=== PATIENT | male | born 1925 | race Caucasian/White ===

== ENCOUNTER → 2016-12-23 | Outpatient (CLI) | payer BC ==
[~2016-12-23] MED LIST: ASPI81TA28 PO; ATEN25TA PO; ATOR-26 PO; CHOL1000 PO; CLR10 PO; FENO145T26 PO; FINA5TAB PO; FURO-85 PO; GFNSR600 PO; LDXCR30 TOP; NICO21DI4 TD; PRD20 PO; RIVA1.5C6 PO; SAW450CA5 PO; SULF800T23 PO; TAMS0.4C38 PO; VNTHFA/IN INH
[2016-12-23 18:06] LABS: URINE APPEARANCE CLEAR (CLEAR); URINE BILIRUBIN NEG (NEG); URINE COLOR YELLOW; URINE EPITHELIAL CELL AUTO 0-5 /lpf (0-5); URINE NITRITE NEG (NEG); URINE SPECIFIC GRAVITY 1.021 (1.000-1.030); UROBILINOGEN NEG (NEG)
[2016-12-23 18:19] LABS: MANUAL MICROSCOPIC REQUIRED? NO; REVIEW REQ? NO
== END | disposition home or self-care (01) ==
LOC: C.LABPBG 11:36
PROVIDERS: ATTEND Family Medicine
DX: N39.0 Urinary tract infection, site not specified (principal)

== ENCOUNTER 2016-12-25 20:17 | Emergency (ER) | payer BC ==
[~2016-12-25] VITALS: Ht 180.3 cm; Wt 70.5 kg
[~2016-12-25 20:17] MED LIST changes: -ASPI81TA28 PO; -ATEN25TA PO; -ATOR-26 PO; -CHOL1000 PO; -CLR10 PO; -FENO145T26 PO; -FINA5TAB PO; -FURO-85 PO; -GFNSR600 PO; -LDXCR30 TOP; -NICO21DI4 TD; -PRD20 PO; -RIVA1.5C6 PO; -TAMS0.4C38 PO; -VNTHFA/IN INH
[2016-12-25 20:19] VITALS: TEMP 36.7
[2016-12-25] MEDS ORDERED: SODIUM CHLORIDE 0.9% 1000ML 1,000 ML IV SCH (20:27)
[2016-12-25 20:35] VITALS: Ht 180.3 cm; Wt 70.5 kg
[2016-12-25 20:37] VITALS: O2SAT 99
--- NOTE | 2016-12-25 21:03 | DIAGNOSTIC IMAGING REPORT ---
CT SCAN OF THE BRAIN WITHOUT IV CONTRAST CLINICAL HISTORY: Recent fall. Left upper extremity weakness. Clinical concern for stroke. COMPARISON STUDY: No priors. TECHNIQUE: Unenhanced axial CT scan of the brain is performed from the vertex to the skull base. CT DOSE: 712.55 mGy.cm FINDINGS: Brain parenchyma: There are age-related involutional changes noting mild subcortical and periventricular microangiopathic change. There is no hemorrhage, mass effect, or evidence of acute territorial ischemia by CT criteria. Irby-white matter is preserved. No extra-axial fluid collection is seen. Ventricles, sulci, cisterns: Prominent secondary to involutional change. Intracranial vasculature: There is atherosclerotic calcification of the cavernous carotid and vertebral arteries. Calvarium: Skeletal structures are osteopenic. No depressed calvarial fracture is seen. Sinuses and mastoids: There is a 3 cm retention cyst in the right maxillary antrum. Trace mucosal thickening is seen within the maxillary antra. The remaining paranasal sinuses are clear. The mastoid air cells are well pneumatized. Orbits: The bony orbits are grossly intact. IMPRESSION: There is no hemorrhage, mass effect, or evidence of acute territorial ischemia by CT criteria. Electronically signed by: Cricket Pemberton M.D. 12/25/2016 9:02 PM Dictated Date/Time: 12/25/2016 8:59 PM
[2016-12-25 21:04] LABS: INR 1.1 (0.9-1.1); PARTIAL THROMBOPLASTIN RATIO 1.3; PROTHROMBIN TIME (PATIENT) 12.3 SECONDS (9.0-12.0)
--- NOTE | 2016-12-25 21:06 | EMERGENCY ROOM VISIT NOTE ---
History Report prepared by [place]: Ra Cordova Under the Supervision of: Dr. Frank Brooks M.D. First contact with patient: 20:27 Chief Complaint: NEURO SYMPTOMS Stated Complaint: FELL 12/22/16,NO USE IN L HAND Nursing Triage Summary: Patient awoke from nap today at 15:30 and was unable to use his left hand. Patient feels as if the hand is numb. History of Present Illness The patient is a 89 year old male who presents to the Emergency Room with complaints neurologic symptoms that began 5 hours ago. At this time, the patient had just woken up from a nap. He then noticed he could not move his left hand. He denies any pain at this time, but he still cannot move his wrist. The patient denies any facial droop, weakness, or trouble speaking. He has a past medical history of dementia, but his family is here to confirm all of this. He had a recent fall that resulted in two broken ribs. He states he was weeding his walkway, when his shoe got caught. He does not remember hitting his head at all during this fall. He also was checked for a UTI two days ago, but they have not received his results yet. He also has a past medical history of an open heart bypass surgery, a myocardial infarction, and a stroke. He is a current everyday smoker. He also has a pacemaker in place. Source of History: patient, family Onset: 5 hours ago Position: hand (left) Symptom Intensity: moderate Quality: numbness Timing: constant Associated Symptoms: No weakness Note: He denies any facial droop or speech problems. Review of Systems See HPI for pertinent positives & negatives. A total of 10 systems reviewed and were otherwise negative. Past Medical & Surgical Medical Problems: (1) Heart disease (2) Kidney disease Surgical Problems: (1) History of cholecystectomy Family History FH: heart disease Social History Smoking Status: Current Every Day Smoker Smokeless Tobacco Use: No Drug Use: none Marital Status: Housing Status: lives with family Occupation Status: retired Current/Historical Medications Scheduled Aspirin (Aspirin Ec), 81 MG PO DAILY Atenolol (Tenormin), 12.5 MG PO DAILY Atorvastatin (Lipitor), 80 MG PO DAILY Cholecalciferol (Vitamin D3), 1,000 INTER.UNIT PO DAILY Finasteride (Proscar), 5 MG PO DAILY Loratadine (Claritin), 10 MG PO DAILY Rivastigmine Tartrate (Exelon), 1.5 MG PO BID Tamsulosin Hcl (Flomax), 0.4 MG PO DAILY Allergies Coded Allergies: No Known Allergies (Unverified , 12/25/16) Physical Exam Vital Signs Date Time Temp Pulse Resp B/P (MAP) Pulse Ox O2 Delivery O2 Flow Rate FiO2 12/25/16 23:00 70 18 171/77 98 12/25/16 21:29 70 18 163/89 97 Room Air 12/25/16 20:37 99 Room Air 12/25/16 20:36 70 12/25/16 20:19 36.7 71 20 147/74 100 Room Air Physical Exam GENERAL: Patient is a healthy-appearing well-nourished male HEAD: Normocephalic atraumatic EYES: Ocular movements intact pupils equal and react to light OROPHARYNX mucous membranes are moist no exudates present no erythema or edema present NECK: Supple no nuchal rigidity CHEST: Good equal expansion LUNGS: Clear and equal to auscultation CARDIAC: Normal S1 and S2 ABDOMEN: Soft nontender no guarding BACK: No CVA tenderness EXTREMITIES: No pain upon palpation normal muscle strength in all groups no clubbing cyanosis or edema NEURO: Patient is following commands and answering questions appropriately. Alert and oriented x3 Cranial Nerves 2-12 grossly intact. Wrist drop on the left. Good strength to left elbow and shoulder. Medical Decision & Procedures ER Provider Diagnostic Interpretation: Radiology results as stated below per my review and radiologist interpretation: CT SCAN OF THE BRAIN WITHOUT IV CONTRAST CLINICAL HISTORY: Recent fall. Left upper extremity weakness. Clinical concern for stroke. COMPARISON STUDY: No priors. TECHNIQUE: Unenhanced axial CT scan of the brain is performed from the vertex to the skull base. CT DOSE: 712.55 mGy.cm FINDINGS: Brain parenchyma: There are age-related involutional changes noting mild subcortical and periventricular microangiopathic change. There is no hemorrhage, mass effect, or evidence of acute territorial ischemia by CT criteria. Irby-white matter is preserved. No extra-axial fluid collection is seen. Ventricles, sulci, cisterns: Prominent secondary to involutional change. Intracranial vasculature: There is atherosclerotic calcification of the cavernous carotid and vertebral arteries. Calvarium: Skeletal structures are osteopenic. No depressed calvarial fracture is seen. Sinuses and mastoids: There is a 3 cm retention cyst in the right maxillary antrum. Trace mucosal thickening is seen within the maxillary antra. The remaining paranasal sinuses are clear. The mastoid air cells are well pneumatized. Orbits: The bony orbits are grossly intact. IMPRESSION: There is no hemorrhage, mass effect, or evidence of acute territorial ischemia by CT criteria. Electronically signed by: Cricket Pemberton M.D. 12/25/2016 9:02 PM Dictated Date/Time: 12/25/2016 8:59 PM SINGLE VIEW CHEST CLINICAL HISTORY: Fall. Stroke like symptoms. FINDINGS: An AP, portable, upright chest radiograph is obtained. No prior studies are available for comparison at the time of dictation. The examination is degraded by portable technique and patient rotation. A 2-lead cardiac pacemaker is in place. Leads project over the right atrial appendage and the right ventricle. The patient is status post midline sternotomy. The heart is enlarged and there is atherosclerotic calcification of the thoracic aorta. The pulmonary vascular structures noncongested. Airspace opacities are identified at the left lung base. A small left pleural effusion is suspected. The right lung is grossly clear. Nonspecific interstitial thickening is observed. No pneumothorax is seen. The skeletal structures are osteopenic. The bony thorax is grossly intact. IMPRESSION: 1. Cardiomegaly and cardiac pacemaker. There is no radiographic evidence of congestive failure. 2. Airspace opacities are identified the left lung base. This could represent atelectasis, pneumonia, and/or aspiration pneumonitis. Clinical correlation will be required. 3. Suspect a small left pleural effusion. Electronically signed by: Cricket Pemberton M.D. 12/25/2016 9:20 PM Dictated Date/Time: 12/25/2016 9:[address] ANGIO WRIST:X-RAY Laboratory Results 12/25/16 20:40 Red Blood Count 4.20, Mean Corpuscular Volume 91.2, Mean Corpuscular Hemoglobin 28.3, Mean Corpuscular Hemoglobin Concent 31.1, Mean Platelet Volume 12.3, Neutrophils (%) (Auto) 62.9, Lymphocytes (%) (Auto) 25.3, Monocytes (%) (Auto) 10.4, Eosinophils (%) (Auto) 1.1, Basophils (%) (Auto) 0.3, Neutrophils # (Auto ) 2.31, Lymphocytes # (Auto) 0.93, Monocytes # (Auto) 0.38, Eosinophils # (Auto ) 0.04, Basophils # (Auto) 0.01 12/25/16 20:40 Test 12/25/16 20:36 12/25/16 20:40 12/25/16 21:23 Bedside Prothrombin Time INR 1.3 (0.9-1.1) Bedside Glucose 99 mg/dl (70-99) White Blood Count 3.67 K/uL (4.8-10.8) Red Blood Count 4.20 M/uL (4.7-6.1) Hemoglobin 11.9 g/dL (14.0-18.0) Hematocrit 38.3 % (42-52) Mean Corpuscular Volume 91.2 fL (80-100) Mean Corpuscular Hemoglobin 28.3 pg (25-34) Mean Corpuscular Hemoglobin Concent 31.1 g/dl (32-36) Platelet Count 62 K/uL (130-400) Mean Platelet Volume 12.3 fL (7.4-10.4) Neutrophils (%) (Auto) 62.9 % Lymphocytes (%) (Auto) 25.3 % Monocytes (%) (Auto) 10.4 % Eosinophils (%) (Auto) 1.1 % Basophils (%) (Auto) 0.3 % Neutrophils # (Auto) 2.31 K/uL (1.4-6.5) Lymphocytes # (Auto) 0.93 K/uL (1.2-3.4) Monocytes # (Auto) 0.38 K/uL (0.11-0.59) Eosinophils # (Auto) 0.04 K/uL (0-0.5) Basophils # (Auto) 0.01 K/uL (0-0.2) RDW Standard Deviation 47.3 fL (36.4-46.3) RDW Coefficient of Variation 14.1 % (11.5-14.5) Immature Granulocyte % (Auto) 0.0 % Immature Granulocyte # (Auto) 0.00 K/uL (0.00-0.02) Platelet Estimate DECREASED Ovalocytes 1+ Echinocytes 1+ Prothrombin Time 12.3 SECONDS (9.0-12.0) Prothromb Time International Ratio 1.1 (0.9-1.1) Activated Partial Thromboplast Time 34.2 SECONDS (21.0-31.0) Partial Thromboplastin Ratio 1.3 Anion Gap 7.0 mmol/L (3-11) Est Creatinine Clear Calc Drug Dose 38.4 ml/min Estimated GFR () 56.1 Estimated GFR (Non- 48.4 BUN/Creatinine Ratio 19.5 (10-20) Calcium Level 8.9 mg/dl (8.5-10.1) Total Creatine Kinase 70 U/L (39-308) Creatine Kinase MB 1.5 ng/ml (0.5-3.6) Creatine Kinase MB Ratio 2.1 (0-3.0) Troponin I < 0.015 ng/ml (0-0.045) Chemistry Specimen Hemolysis Urine Color DK YELLOW Urine Appearance CLEAR (CLEAR) Urine pH 5.0 (4.5-7.5) Urine Specific [place] 1.024 (1.000-1.030) Urine Protein TRACE (NEG) Urine Glucose (UA) NEG (NEG) Urine Ketones NEG (NEG) Urine Occult Blood 2+ (NEG) Urine Nitrite NEG (NEG) Urine Bilirubin NEG (NEG) Urine Urobilinogen NEG (NEG) Urine Leukocyte Esterase NEG (NEG) Urine WBC (Auto) 1-5 /hpf (0-5) Urine RBC (Auto) 10-30 /hpf (0-4) Urine Hyaline Casts (Auto) 1-5 /lpf (0-5) Urine Epithelial Cells (Auto) 5-10 /lpf (0-5) Urine Bacteria (Auto) NEG (NEG) Labs reviewed by ED physician. Medications Administered Medications (Trade) Dose Ordered Sig/Roberto Route Start Time Stop Time Status Last Admin Dose Admin Sodium Chloride 1,000 ml @ 50 mls/hr Q20H IV 12/25/16 20:27 12/25/16 23:54 DC 12/25/16 20:27 50 MLS/HR ECG Indication: other (Numbness) Rate (beats per minute): 70 Rhythm: other (Paced) Findings: no acute ischemic change, no ectopy ED Course 2026: Past medical records reviewed. The patient was evaluated in room B12B. A complete history and physical examination was performed. Ordered Sodium Chloride 1000 ml @ 50 mls/hr IV. Medical Decision Differential diagnosis: Etiologies such as metabolic, infection, hypo/hyperglycemia, electrolyte abnormalities, cardiac sources, intracerebral event, toxicologic, neurologic, as well as others were entertained. Medication Reconciliation: I attest that I have personally reviewed the patient' s current medication list Blood Pressure Screening: Patient was found to have an elevated blood pressure and was referred to their primary care doctor for recheck and further treatment. This is an 89-year-old male who presents emergency department complaining of left wrist drop. Upon arrival to the emergency department the patient has good flexion and extension of his forearm his upper arm.. He denies any numbness or tingling to the hand. He was sent for CAT scan of the head however this does not show any acute process. A CTA was then performed because the patient cannot get an MRI. This didn't also did not show any acute process. 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 I stressed the need for follow-up with orthopedics. Patient and family were in agreement with the treatment plan. Impression Primary Impression: Wrist drop, left Scribe Attestation The scribe's documentation has been prepared under my direction and personally reviewed by me in its entirety. I confirm that the note above accurately reflects all work, treatment, procedures, and medical decision making performed by me. Departure Information Dispostion Home / Self-Care Referrals Johnny Bunn D.O. (PCP) Forms HOME CARE DOCUMENTATION FORM, IMPORTANT VISIT INFORMATION, WORK / SCHOOL INSTRUCTIONS Patient Instructions My [facility] Stroke History Time Last Known Well 1430, today Stroke t-PA Criteria Reviewed Does NOT meet criteria for t-PA Reason t-PA Not Given Treatment not indicated
[2016-12-25 21:14] LABS: BLOOD UREA NITROGEN 25 mg/dl (7-18); BUN/CREATININE RATIO 19.5 (10-20); CARBON DIOXIDE 25 mmol/L (21-32); CHLORIDE 114 mmol/L (98-107); GLUCOSE 98 mg/dl (70-99); POTASSIUM 4.2 mmol/L (3.5-5.1); SODIUM 146 mmol/L (136-145)
[2016-12-25 21:18] LABS: BASO % 0.3 %; BASO ABS # 0.01 K/uL (0-0.2); COMPLETE YES; ECHINOCYTES 1+; EOS % 1.1 %; HEMATOCRIT 38.3 % (42-52); LYMPH % 25.3 %; LYMPH ABS # 0.93 K/uL (1.2-3.4); MEAN CELL VOLUME 91.2 fL (80-100); MEAN CORPUSCULAR HEMOGLOBIN 28.3 pg (25-34); MEAN CORPUSCULAR HGB CONC 31.1 g/dl (32-36); MEAN PLATELET VOLUME 12.3 fL (7.4-10.4); MONO % 10.4 %; NEUT % 62.9 %; OVALOCYTES 1+; PLATELET COUNT 62 K/uL (130-400); PLT ESTIMATE DECREASED; WHITE BLOOD COUNT 3.67 K/uL (4.8-10.8)
[2016-12-25 21:19] LABS: CKMB/CK RATIO 2.1 (0-3.0)
--- NOTE | 2016-12-25 21:21 | DIAGNOSTIC IMAGING REPORT ---
SINGLE VIEW CHEST CLINICAL HISTORY: Fall. Stroke like symptoms. FINDINGS: An AP, portable, upright chest radiograph is obtained. No prior studies are available for comparison at the time of dictation. The examination is degraded by portable technique and patient rotation. A 2-lead cardiac pacemaker is in place. Leads project over the right atrial appendage and the right ventricle. The patient is status post midline sternotomy. The heart is enlarged and there is atherosclerotic calcification of the thoracic aorta. The pulmonary vascular structures noncongested. Airspace opacities are identified at the left lung base. A small left pleural effusion is suspected. The right lung is grossly clear. Nonspecific interstitial thickening is observed. No pneumothorax is seen. The skeletal structures are osteopenic. The bony thorax is grossly intact. IMPRESSION: 1. Cardiomegaly and cardiac pacemaker. There is no radiographic evidence of congestive failure. 2. Airspace opacities are identified the left lung base. This could represent atelectasis, pneumonia, and/or aspiration pneumonitis. Clinical correlation will be required. 3. Suspect a small left pleural effusion. Electronically signed by: Cricket Pemberton M.D. 12/25/2016 9:20 PM Dictated Date/Time: 12/25/2016 9:18 PM
[2016-12-25 21:23] LABS: CALCIUM 8.9 mg/dl (8.5-10.1)
[2016-12-25] MEDS ORDERED: OPTIRAY 320 IV PRN (21:30)
[2016-12-25 21:51] LABS: URINE APPEARANCE CLEAR (CLEAR); URINE BILIRUBIN NEG (NEG); URINE COLOR DK YELLOW; URINE NITRITE NEG (NEG); URINE SPECIFIC GRAVITY 1.024 (1.000-1.030); UROBILINOGEN NEG (NEG); ZZUR CULT IF INDIC CLEAN CATCH NO
[2016-12-25 21:52] LABS: MANUAL MICROSCOPIC REQUIRED? NO; REVIEW REQ? NO
--- NOTE | 2016-12-25 22:26 | DIAGNOSTIC IMAGING REPORT ---
CT ANGIOGRAM OF THE BRAIN; CT ANGIOGRAM OF THE NECK CLINICAL HISTORY: Fall. Left hand weakness. COMPARISON STUDY: Unenhanced CT of the brain dated 12/25/2016. TECHNIQUE: Following the IV administration of 119 of Optiray 320, CT angiogram of the head and neck was performed from the aortic arch to the vertex. Images are reviewed in the axial, sagittal, and coronal planes. 3-D MIPS images are created and assessed. IV contrast was administered without complication. All measurements were calculated based on NASCET criteria. CT DOSE: 609.85 mGy.cm FINDINGS: Brain parenchyma: There are age-related involutional changes and mild subcortical and periventricular microangiopathic disease. There is no evidence of hemorrhage, mass effect, or acute territorial ischemia by CT criteria. There is no evidence of enhancing mass lesion on the angiographic phase images. The ventricles, sulci, and cisterns are prominent secondary to involutional change. Irby-white matter differentiation is preserved. No extra-axial fluid collection is identified. Thoracic aorta: There is atherosclerotic calcification of the imaged portions of the thoracic aorta. The visualized thoracic aorta is normal in caliber and the arch demonstrates standard 3-vessel anatomy. Subclavian arteries: Widely patent bilaterally. Right carotid arterial system: The right common carotid artery is widely patent. There is advanced atherosclerotic calcification and plaque seen the carotid bulb. There is approximate 75% stenosis at the origin of the right internal carotid artery seen on axial image #452. The remainder of the right internal carotid artery as well as the external carotid artery are widely patent. Left carotid arterial system: The left common carotid artery is widely patent, as are the left internal and carotid arteries. Advanced atherosclerotic calcification is noted in the left carotid bulb. Vertebral arteries: The vertebral arteries are widely patent and codominant. Intracranial vasculature: The internal carotid arteries are widely patent at the skull base. There is after carotid calcification and tortuosity of the cavernous carotid arteries which are patent. The anterior and middle cerebral arteries are widely patent. The vertebrobasilar system and posterior cerebral arteries are widely patent. The vertebral arteries are codominant. No aneurysm, high-grade stenosis, or focal vessel cut off is identified. Jugular veins: Patent bilaterally. Dural sinuses: Patent. Upper chest: Apical scarring and emphysema are suggested. Partially visualized upper lobe lung parenchyma otherwise appears clear. Midline sternotomy wires are noted. A cardiac pacemaker is noted in the left upper chest. Soft tissues: Evaluation of the oropharynx is significantly degraded by streak artifact from dental amalgam. The visualized pharyngeal soft tissues are normal in appearance noting angiographic phase technique. The oropharyngeal airway appears widely patent. The salivary and thyroid glands are normal in appearance. No cervical lymphadenopathy is seen. The epiglottis is normal. Skeletal structures: The skeletal structures are osteopenic. The calvarium appears intact. There is moderate multilevel cervical spondylosis. No lytic or blastic lesions are identified. Sinuses and mastoids: There is a large retention cyst in the right maxillary antrum. Trace mucosal thickening is seen in the right maxillary antrum. The remaining Paranasal sinuses are clear. The mastoid air cells are well pneumatized. IMPRESSION: 1. There is no evidence of hemorrhage, mass effect, or acute territorial ischemia by CT criteria. 2. Unremarkable CT angiogram of the brain. 3. There is approximately 75% stenosis at the origin of the right internal carotid artery. The remainder of the right internal carotid arterial system is widely patent. 4. The left carotid arterial system and the vertebral arteries are widely patent. 5. Suspect emphysema. Electronically signed by: Cricket Pemberton M.D. 12/25/2016 10:25 PM Dictated Date/Time: 12/25/2016 10:11 PM
--- NOTE | 2016-12-25 22:49 | DIAGNOSTIC IMAGING REPORT ---
LEFT WRIST 4 VIEWS CLINICAL HISTORY: Fall several days ago. Left wrist injury. FINDINGS: 4 views of left wrist are obtained. No prior studies are available for comparison at the time of dictation. The skeletal structures are osteopenic. There is cortical irregularity involving the distal ulnar metaphysis. This could represent bony overgrowth/degenerative change versus fracture. The distal radius appears intact and no additional findings are concerning for acute fracture. There is mild narrowing at the radiocarpal articulation. Moderate to advanced arthritic change is seen at the first carpometacarpal articulation. Milder degenerative change is seen throughout the remainder of the wrist. Arthritic change is also seen in the metacarpophalangeal and partially imaged interphalangeal joints. No erosive disease is identified. Mild soft tissue swelling is suggested around the wrist. IMPRESSION: 1. There is cortical irregularity identified involving the distal ulnar metaphysis. This could represent bony overgrowth/degenerative change versus a subtle fracture. Correlate for point tenderness at this site. 2. No additional findings are concerning for acute fracture. 3. Osteopenia and arthritic change as above. 4. Mild soft tissue swelling is noted. Electronically signed by: Cricket Pemberton M.D. 12/25/2016 10:48 PM Dictated Date/Time: 12/25/2016 10:44 PM
[2016-12-25 23:00] VITALS: BP 171/77; PULSE 70; O2SAT 98
[2017-03-11] MEDS ORDERED: ATEN25TA PO (15:51)
[2017-03-11] MEDS ORDERED: CHOL1000 PO (15:51)
[2017-03-11] MEDS ORDERED: FINA5TAB PO (15:51)
[2017-03-11] MEDS ORDERED: TAMS0.4C38 PO (15:51)
[2017-03-11] MEDS ORDERED: CLR10 PO (15:51)
[2017-03-11] MEDS ORDERED: RIVA1.5C6 PO (15:51)
[2017-03-11] MEDS ORDERED: ASPI81TA28 PO (15:51)
[2017-03-11] MEDS ORDERED: ATOR-26 PO (15:51)
== END 2016-12-25 23:00 | disposition home or self-care (01) ==
LOC: C.EDB 20:18
DX: M21.332 Wrist drop, left wrist (principal); I25.2 Old myocardial infarction; I51.9 Heart disease, unspecified; N18.9 Chronic kidney disease, unspecified; F17.200 Nicotine dependence, unspecified, uncomplicated; Z95.1 Presence of aortocoronary bypass graft; Z95.0 Presence of cardiac pacemaker; Z79.82 Long term (current) use of aspirin; Z79.899 Other long term (current) drug therapy

== ENCOUNTER 2017-03-11 18:47 | Emergency (ER) | payer BC ==
[~2017-03-11] VITALS: Ht 180.3 cm; Wt 73.1 kg
[~2017-03-11 18:47] MED LIST changes: +ASPI81TA28 PO; +ATEN25TA PO; +ATOR-26 PO; +CHOL1000 PO; +CLR10 PO; +FINA5TAB PO; +RIVA1.5C6 PO; -SAW450CA5 PO; -SULF800T23 PO; +TAMS0.4C38 PO
[2017-03-11 18:50] VITALS: TEMP 36.9; Ht 180.3 cm; Wt 73.1 kg
[2017-03-11 19:14] LABS: MEAN CORPUSCULAR HGB CONC 31.3 g/dl (32-36)
[2017-03-11] MEDS ORDERED: LDXCR30 TOP (19:33)
[2017-03-11] MEDS ORDERED: FURO-85 PO (19:33)
[2017-03-11 19:34] LABS: INR 1.2 (0.9-1.1); PARTIAL THROMBOPLASTIN RATIO 1.4; PROTHROMBIN TIME (PATIENT) 12.7 SECONDS (9.0-12.0)
--- NOTE | 2017-03-11 19:39 | DIAGNOSTIC IMAGING REPORT ---
HEAD WITHOUT CONTRAST (CT) CT DOSE: 788.63 mGycm HISTORY: Mental status change eval for bleed TECHNIQUE: Multiaxial CT images of the head were performed without the use of intravenous contrast. A dose lowering technique was utilized adhering to the principles of ALARA. Comparison: 12/25/2016 Findings: Opacified right maxillary sinus. Mild mucosal thickening of the ethmoids. Mastoid air cells are clear. Mild cerebellar as well as cerebral atrophy. Jugular system is midline. No acute intracranial hemorrhage. Impression: Chronic intracranial change. No acute process. Chronic sinus change The above report was generated using voice recognition software. It may contain grammatical, syntax or spelling errors. Electronically signed by: Magno Sosa M.D. 03/11/2017 7:29 PM Dictated Date/Time: 03/11/2017 7:28 PM
--- NOTE | 2017-03-11 19:39 | DIAGNOSTIC IMAGING REPORT ---
CERVICAL SPINE W/O CT DOSE: 439.01 mGycm HISTORY: Trauma eval for fx TECHNIQUE: Multiaxial CT images of the cervical spine were performed and reformatted in the sagittal and coronal plane without the use of contrast. A dose lowering technique was utilized adhering to the principles of ALARA. COMPARISON: None. FINDINGS: No fractures. No subluxation. Prevertebral soft tissues and the C1-C2 interval are intact. No pneumothorax. IMPRESSION: No fractures within the cervical spine. Degenerative change. Osteopenia. The above report was generated using voice recognition software. It may contain grammatical, syntax or spelling errors. Electronically signed by: Magno Sosa M.D. 03/11/2017 7:38 PM Dictated Date/Time: 03/11/2017 7:34 PM
--- NOTE | 2017-03-11 19:41 | DIAGNOSTIC IMAGING REPORT ---
FACIAL BONES-MXILLOFAC WITHOUT CT DOSE: 580.05 mGycm HISTORY: Trauma eval for fx TECHNIQUE: Multiaxial CT images of the maxillofacial region were performed and reformatted in the coronal plane without the use of contrast. A dose lowering technique was utilized adhering to the principles of ALARA. COMPARISON: None. FINDINGS: The visualized cervical spine, skull base, pterygoid plates, nasal bones, lamina papyracea, orbital floors, mandible, and zygomatic arches are intact. No fractures. The orbits are unremarkable. Degenerative change throughout. Chronic opacification right maxillary sinus IMPRESSION: No fractures within the maxillofacial region. The above report was generated using voice recognition software. It may contain grammatical, syntax or spelling errors. Electronically signed by: Magno Sosa M.D. 03/11/2017 7:40 PM Dictated Date/Time: 03/11/2017 7:38 PM
[2017-03-11 19:43] LABS: ACANTHOCYTES 1+; BASO % 0.2 %; BASO ABS # 0.01 K/uL (0-0.2); COMPLETE YES; ECHINOCYTES 1+; HEMATOCRIT 36.7 % (42-52); IG% 0.4 %; LYMPH % 13.3 %; LYMPH ABS # 0.68 K/uL (1.2-3.4); MEAN CELL VOLUME 91.3 fL (80-100); MEAN CORPUSCULAR HEMOGLOBIN 29.4 pg (25-34); MONO % 11.6 %; NEUT % 74.5 %; OVALOCYTES 1+; PLATELET COUNT 53 K/uL (130-400); PLT ESTIMATE DECREASED; RED BLOOD COUNT 4.02 M/uL (4.7-6.1)
--- NOTE | 2017-03-11 19:44 | DIAGNOSTIC IMAGING REPORT ---
THORACIC SPINE WITHOUT CT DOSE: 837.43 mGycm HISTORY: Trauma eval for fx TECHNIQUE: Multiaxial CT images of the thoracic spine were performed and reformatted in the sagittal and coronal plane without the use of contrast. A dose lowering technique was utilized adhering to the principles of ALARA. COMPARISON: None. FINDINGS: No fractures. No subluxation. Paraspinal soft tissues are unremarkable. Considerable degenerative change throughout. Bilateral renal cysts. IMPRESSION: No fractures within the thoracic spine. Considerable degenerative change. The above report was generated using voice recognition software. It may contain grammatical, syntax or spelling errors. Electronically signed by: Magno Sosa M.D. 03/11/2017 7:43 PM Dictated Date/Time: 03/11/2017 7:40 PM
[2017-03-11 19:48] LABS: ALKALINE PHOSPHATASE 174 U/L (45-117); ALT/SGPT 32 U/L (12-78); AST/SGOT 31 U/L (15-37); BLOOD UREA NITROGEN 27 mg/dl (7-18); BUN/CREATININE RATIO 19.4 (10-20); CARBON DIOXIDE 24 mmol/L (21-32); CHLORIDE 112 mmol/L (98-107); GLUCOSE 113 mg/dl (70-99); POTASSIUM 4.3 mmol/L (3.5-5.1); SODIUM 143 mmol/L (136-145)
--- NOTE | 2017-03-11 20:06 | DIAGNOSTIC IMAGING REPORT ---
PELVIS/UNILATERAL HIP 2-3VIEWS CLINICAL HISTORY: eval for fx LT HIP trauma COMPARISON: None. DISCUSSION: Moderate degenerative change of the hips bilaterally. No evidence for fracture or dislocation. Sclerotic foci of the mid right as well as mid left sacrum as well as inferior right pubic ring. Osteoblastic metastatic change is not excluded. This may also represent bone islands. There is no evidence for soft tissue swelling. IMPRESSION: No acute bony abnormality. Degenerative change. Sclerotic foci within the sacrum and inferior right pubic ring. These potentially related to benign bone islands, although blastic metastatic deposits are not excluded. The above report was generated using voice recognition software. It may contain grammatical, syntax or spelling errors. Electronically signed by: Magno Sosa M.D. 03/11/2017 8:04 PM Dictated Date/Time: 03/11/2017 8:02 PM
--- NOTE | 2017-03-11 20:09 | DIAGNOSTIC IMAGING REPORT ---
LUMBAR SPINE WITHOUT CT DOSE: 674.95 mGycm HISTORY: Trauma eval for fx TECHNIQUE: Multiaxial CT images of the lumbar spine were performed and reformatted in the sagittal and coronal plane without the use of contrast. A dose lowering technique was utilized adhering to the principles of ALARA. COMPARISON: None. FINDINGS: No fractures. No subluxation. Paraspinal soft tissues are unremarkable. Considerable degenerative change throughout. Blastic foci posterior aspect mid right sacrum, medial aspect left iliac wing, and a clinically anterior margin of the right sacroiliac joint. Considerable degenerative change posterior elements primarily of the left posterior arch at L5-S1. IMPRESSION: 1. No acute abnormality of the lumbar spine. 2. Degenerative change throughout. 3. Sclerotic foci involving the sacral wings as well as medial left iliac wing raising the possibility of blastic metastatic change versus a benign bone marrow islands The above report was generated using voice recognition software. It may contain grammatical, syntax or spelling errors. Electronically signed by: Magno Sosa M.D. 03/11/2017 8:08 PM Dictated Date/Time: 03/11/2017 8:06 PM
[2017-03-11 21:04] VITALS: BP 124/63; PULSE 76; O2SAT 97
--- NOTE | 2017-03-12 00:58 | EMERGENCY ROOM VISIT NOTE ---
History Report prepared by [place]: Usha Whitney Under the Supervision of: Dr. Javed Oliveira M.D. First contact with patient: 18:49 Chief Complaint: FALL Stated Complaint: FALL/ FACIAL INJURY/POSS. INTERNAL TRAUMA History of Present Illness The patient is an 89 year old male who presents to the Emergency Room with complaints of a fall around 3 hours ago. He presents to the ED by EMS. The patient was bending down to get his cane when he lost his balance and fell. He hit his face on the table and fell to the floor. 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 His family found him on the ground around 45 minutes after he fell. He was laying on the ground for 2 hours total before EMS arrived. He complained of hip pain and lower back pain. He was given fentanyl in route. He currently rates his discomfort as a 1/10 in severity. He denies any headache or pain elsewhere. He has a history of dementia, but his family states that his dementia is not severe and he is still able to accurately recall events that have passed. Source of History: patient, family, EMS Onset: 3 hours ago Position: other (global) Symptom Intensity: 1/10 Quality: other (fall) Timing: other (episodic) Associated Symptoms: + back pain, No headache Note: Pt reports hip pain. Review of Systems See HPI for pertinent positives & negatives. A total of 10 systems reviewed and were otherwise negative. Past Medical & Surgical Medical Problems: (1) Heart disease (2) Kidney disease Surgical Problems: (1) History of cholecystectomy Family History FH: heart disease Social History Smoking Status: Current Every Day Smoker Drug Use: none Marital Status: Housing Status: lives with family Occupation Status: retired Current/Historical Medications Scheduled Aspirin (Aspirin Ec), 81 MG PO DAILY Atenolol (Tenormin), 12.5 MG PO DAILY Atorvastatin (Lipitor), 80 MG PO QPM Cholecalciferol (Vitamin D3), 1,000 INTER.UNIT PO DAILY Finasteride (Proscar), 5 MG PO DAILY Fluocinonide (Lidex 0.05% Cream), 1 APPLN TOP UD Furosemide (Lasix), 10 MG PO DAILY Loratadine (Claritin), 10 MG PO DAILY Rivastigmine Tartrate (Exelon), 1.5 MG PO BID Tamsulosin Hcl (Flomax), 0.4 MG PO DAILY Allergies Coded Allergies: No Known Allergies (Unverified , 12/25/16) Physical Exam Vital Signs Date Time Temp Pulse Resp B/P (MAP) Pulse Ox O2 Delivery O2 Flow Rate FiO2 03/11/17 21:04 76 16 124/63 97 03/11/17 20:06 60 16 174/71 96 Room Air 03/11/17 18:51 60 03/11/17 18:50 36.9 60 18 179/82 99 Room Air Physical Exam Constitutional: Vital signs reviewed. Head: Abrasion to the forehead, 3 skin tears to the nose, very superficial 2.5 cm lac to the left upper lip. Eyes: Pupils are equal round reactive to light. Conjunctiva are noninjected. ENT: Pharynx is clear without erythema or exudate. Mucous membranes are moist. No midline tenderness to the cervical spine. Respiratory: Clear to auscultation bilaterally. Breath sounds are equal bilaterally. Cardiovascular: Regular rate and rhythm. No rubs or gallops. GI: Soft, nondistended and nontender. Bowel sounds are present. Musculoskeletal: Tenderness to the left hip without shortening, normal distal pulses, tenderness to the lower lumbar spine, no midline tenderness to the thoracic spine, skin tear to the left wrist and right hand. Integumentary: No cyanosis. Neurological: The patient is awake and alert. No focal deficits. Psychiatric: Normal affect. Medical Decision & Procedures ER Provider Diagnostic Interpretation: X-ray results as stated below per interpretation by me and the radiologist. Radiology results as stated below per my review and the radiologist's interpretation: PELVIS/UNILATERAL HIP 2-3VIEWS CLINICAL HISTORY: eval for fx LT HIP trauma COMPARISON: None. DISCUSSION: Moderate degenerative change of the hips bilaterally. No evidence for fracture or dislocation. Sclerotic foci of the mid right as well as mid left sacrum as well as inferior right pubic ring. Osteoblastic metastatic change is not excluded. This may also represent bone islands. There is no evidence for soft tissue swelling. IMPRESSION: No acute bony abnormality. Degenerative change. Sclerotic foci within the sacrum and inferior right pubic ring. These potentially related to benign bone islands, although blastic metastatic deposits are not excluded. The above report was generated using voice recognition software. It may contain grammatical, syntax or spelling errors. Electronically signed by: Magno Sosa M.D. 03/11/2017 8:04 PM Dictated Date/Time: 03/11/2017 8:02 PM CERVICAL SPINE W/O CT DOSE: 439.01 mGycm HISTORY: Trauma eval for fx TECHNIQUE: Multiaxial CT images of the cervical spine were performed and reformatted in the sagittal and coronal plane without the use of contrast. A dose lowering technique was utilized adhering to the principles of ALARA. COMPARISON: None. FINDINGS: No fractures. No subluxation. Prevertebral soft tissues and the C1-C2 interval are intact. No pneumothorax. IMPRESSION: No fractures within the cervical spine. Degenerative change. Osteopenia. The above report was generated using voice recognition software. It may contain grammatical, syntax or spelling errors. Electronically signed by: Magno Sosa M.D. 03/11/2017 7:38 PM Dictated Date/Time: 03/11/2017 7:34 PM HEAD WITHOUT CONTRAST (CT) CT DOSE: 788.63 mGycm HISTORY: Mental status change eval for bleed TECHNIQUE: Multiaxial CT images of the head were performed without the use of intravenous contrast. A dose lowering technique was utilized adhering to the principles of ALARA. Comparison: 12/25/2016 Findings: Opacified right maxillary sinus. Mild mucosal thickening of the ethmoids. Mastoid air cells are clear. Mild cerebellar as well as cerebral atrophy. Jugular system is midline. No acute intracranial hemorrhage. Impression: Chronic intracranial change. No acute process. Chronic sinus change The above report was generated using voice recognition software. It may contain grammatical, syntax or spelling errors. Electronically signed by: Magno Sosa M.D. 03/11/2017 7:29 PM Dictated Date/Time: 03/11/2017 7:28 PM LUMBAR SPINE WITHOUT CT DOSE: 674.95 mGycm HISTORY: Trauma eval for fx TECHNIQUE: Multiaxial CT images of the lumbar spine were performed and reformatted in the sagittal and coronal plane without the use of contrast. A dose lowering technique was utilized adhering to the principles of ALARA. COMPARISON: None. FINDINGS: No fractures. No subluxation. Paraspinal soft tissues are unremarkable. Considerable degenerative change throughout. Blastic foci posterior aspect mid right sacrum, medial aspect left iliac wing, and a clinically anterior margin of the right sacroiliac joint. Considerable degenerative change posterior elements primarily of the left posterior arch at L5-S1. IMPRESSION: 1. No acute abnormality of the lumbar spine. 2. Degenerative change throughout. 3. Sclerotic foci involving the sacral wings as well as medial left iliac wing raising the possibility of blastic metastatic change versus a benign bone marrow islands The above report was generated using voice recognition software. It may contain grammatical, syntax or spelling errors. Electronically signed by: Magno Sosa M.D. 03/11/2017 8:08 PM Dictated Date/Time: 03/11/2017 8:06 PM FACIAL BONES-MXILLOFAC WITHOUT CT DOSE: 580.05 mGycm HISTORY: Trauma eval for fx TECHNIQUE: Multiaxial CT images of the maxillofacial region were performed and reformatted in the coronal plane without the use of contrast. A dose lowering technique was utilized adhering to the principles of ALARA. COMPARISON: None. FINDINGS: The visualized cervical spine, skull base, pterygoid plates, nasal bones, lamina papyracea, orbital floors, mandible, and zygomatic arches are intact. No fractures. The orbits are unremarkable. Degenerative change throughout. Chronic opacification right maxillary sinus IMPRESSION: No fractures within the maxillofacial region. The above report was generated using voice recognition software. It may contain grammatical, syntax or spelling errors. Electronically signed by: Magno Sosa M.D. 03/11/2017 7:40 PM Dictated Date/Time: 03/11/2017 7:38 PM THORACIC SPINE WITHOUT CT DOSE: 837.43 mGycm HISTORY: Trauma eval for fx TECHNIQUE: Multiaxial CT images of the thoracic spine were performed and reformatted in the sagittal and coronal plane without the use of contrast. A dose lowering technique was utilized adhering to the principles of ALARA. COMPARISON: None. FINDINGS: No fractures. No subluxation. Paraspinal soft tissues are unremarkable. Considerable degenerative change throughout. Bilateral renal cysts. IMPRESSION: No fractures within the thoracic spine. Considerable degenerative change. The above report was generated using voice recognition software. It may contain grammatical, syntax or spelling errors. Electronically signed by: Magno Sosa M.D. 03/11/2017 7:43 PM Dictated Date/Time: 03/11/2017 7:40 PM Laboratory Results 03/11/17 19:01 Red Blood Count 4.02, Mean Corpuscular Volume 91.3, Mean Corpuscular Hemoglobin 29.4, Mean Corpuscular Hemoglobin Concent 31.3, Neutrophils (%) (Auto) 74.5, Lymphocytes (%) (Auto) 13.3, Monocytes (%) (Auto) 11.6, Eosinophils (%) (Auto) 0.0, Basophils (%) (Auto) 0.2, Neutrophils # (Auto) 3.80, Lymphocytes # (Auto) 0.68, Monocytes # (Auto) 0.59, Eosinophils # (Auto) 0.00, Basophils # (Auto) 0.01 03/11/17 19:01 Test 03/11/17 19:01 White Blood Count 5.10 K/uL (4.8-10.8) Red Blood Count 4.02 M/uL (4.7-6.1) Hemoglobin 11.8 g/dL (14.0-18.0) Hematocrit 36.7 % (42-52) Mean Corpuscular Volume 91.3 fL (80-100) Mean Corpuscular Hemoglobin 29.4 pg (25-34) Mean Corpuscular Hemoglobin Concent 31.3 g/dl (32-36) Platelet Count 53 K/uL (130-400) Neutrophils (%) (Auto) 74.5 % Lymphocytes (%) (Auto) 13.3 % Monocytes (%) (Auto) 11.6 % Eosinophils (%) (Auto) 0.0 % Basophils (%) (Auto) 0.2 % Neutrophils # (Auto) 3.80 K/uL (1.4-6.5) Lymphocytes # (Auto) 0.68 K/uL (1.2-3.4) Monocytes # (Auto) 0.59 K/uL (0.11-0.59) Eosinophils # (Auto) 0.00 K/uL (0-0.5) Basophils # (Auto) 0.01 K/uL (0-0.2) RDW Standard Deviation 46.3 fL (36.4-46.3) RDW Coefficient of Variation 13.8 % (11.5-14.5) Immature Granulocyte % (Auto) 0.4 % Immature Granulocyte # (Auto) 0.02 K/uL (0.00-0.02) Platelet Estimate DECREASED Ovalocytes 1+ Echinocytes 1+ Acanthocytes 1+ Prothrombin Time 12.7 SECONDS (9.0-12.0) Prothromb Time International Ratio 1.2 (0.9-1.1) Activated Partial Thromboplast Time 36.6 SECONDS (21.0-31.0) Partial Thromboplastin Ratio 1.4 Anion Gap 7.0 mmol/L (3-11) Est Creatinine Clear Calc Drug Dose 37.0 ml/min Estimated GFR () 51.3 Estimated GFR (Non- 44.2 BUN/Creatinine Ratio 19.4 (10-20) Calcium Level 9.0 mg/dl (8.5-10.1) Total Bilirubin 1.0 mg/dl (0.2-1) Direct Bilirubin mg/dl (0-0.2) Aspartate Amino Transf (AST/SGOT) 31 U/L (15-37) Alanine Aminotransferase (ALT/SGPT) 32 U/L (12-78) Alkaline Phosphatase 174 U/L (45-117) Total Creatine Kinase 220 U/L (39-308) Troponin I 0.025 ng/ml (0-0.045) Total Protein 6.9 gm/dl (6.4-8.2) Albumin 3.4 gm/dl (3.4-5.0) Chemistry Specimen Hemolysis Laboratory results as reviewed by me. ECG Indication: other (fall) Rate (beats per minute): 60 Rhythm: other (ventricular paced) Findings: no ectopy, other (QRS 178) ED Course 1846: The patient was evaluated in room A1. A complete history and physical exam was performed. 2001: The patient has been moved to room A9B. I reevaluated the patient. I removed the cervical collar. I discussed the test results with him and his family. We are still waiting on X-ray and CT results. 2014: I reevaluated the patient. He is doing well. His daughter states that his tetanus is up to date. I discussed the test results with him and his family including the incidental findings on the CT. The patient will have an ambulatory trial and be discharged home if he is able to ambulate. 2041: I reevaluated the patient. He was able to ambulate although slower than usual. He and his family would like to take him home. I discussed sharan's findings with them. They verbalized agreement of the treatment plan. He was discharged home. Medical Decision This is an 89-year-old male who presents with injuries after mechanical fall. Differential diagnosis includes contusion, concussion, skull fracture, facial fracture, intracranial hemorrhage, vertebral compression fracture. I did perform a limited focused review of portions of the patient's old chart on the electronic medical record. The patient has had no recent pertinent visits to this hospital. I did evaluate the patient as noted above. I did obtain history from the patient as well as his family who are at the bedside. His fall was mechanical in nature. He did not have any dizziness or weakness. He complains of back pain and left hip pain. IV access was established. The patient was placed on a continuous gambling monitor. I did order and personally review the patient's 12-lead EKG and x-rays as described above. He has no evidence of fracture. Id id order and review the patient's blood work as noted in the electronic medical record. I did order a CT of the head, facial bones and spine. I did review the images myself as well as the radiology report as described above. There is no evidence of acute fracture. No intracranial hemorrhage. I did discuss the test results with the patient and his family. He does feel well enough to go home. He did ambulate with some unsteadiness but not out of the ordinary for him. His family did wish to take him home. He was discharged with head injury precautions. His facial wounds and extremity wounds were cleaned and dressed. He does not require any suture her laceration repair. He was discharged in good condition. Head Trauma GCS Score: 15 Medication Reconcilliation Current Medication List: was personally reviewed by me Blood Pressure Screening Patient's blood pressure: Elevated blood pressure Blood pressure disposition: Referred to PCP Impression Primary Impression: Acute head injury Additional Impressions: Facial contusion Fall Injury of left hip Low back pain Multiple skin tears Scribe Attestation The scribe's documentation has been prepared under my direct and personally reviewed by me in its entirety. I confirm that the note above accurately reflects all work, treatment, procedures, and medical decision making performed by me. Departure Information Dispostion Home / Self-Care Referrals Johnny Bunn D.O. (PCP) Forms HOME CARE DOCUMENTATION FORM, IMPORTANT VISIT INFORMATION Patient Instructions ED Head Injury Closed, ED Low Back Pain Injury, [facility] Additional Instructions You have been examined and treated today on an emergency basis only. This is not a substitute for, or an effort to provide, complete comprehensive medical care. It is impossible to recognize and treat all injuries or illnesses in a single emergency department visit. It is therefore important that you follow up closely with your physician. Call as soon as possible for an appointment. Return for worsening symptoms or if you develop fever, vomiting, abdominal pain , loss of control of your bowel or bladder, numbness or weakness to your arms or legs, numbness to your private area, difficulty urinating, or any other concerning symptoms. Problem Qualifiers Primary Impression: Acute head injury Encounter type: initial encounter Qualified Codes: S09.90XA - Unspecified injury of head, initial encounter Additional Impressions: Facial contusion Encounter type: initial encounter Qualified Codes: S00.83XA - Contusion of other part of head, initial encounter Fall Encounter type: initial encounter Qualified Codes: W19.XXXA - Unspecified fall, initial encounter Injury of left hip Encounter type: initial encounter Qualified Codes: S79.912A - Unspecified injury of left hip, initial encounter Low back pain Chronicity: acute Back pain laterality: midline Sciatica presence: without sciatica Qualified Codes: M54.5 - Low back pain
== END 2017-03-11 21:04 | disposition home or self-care (01) ==
LOC: EDBD 18:47 → C.ED 18:49 → C.EDA 21:04
DX: S09.90XA Unspecified injury of head, initial encounter (principal); S00.83XA Contusion of other part of head, initial encounter; S79.912A Unspecified injury of left hip, initial encounter; M54.5 Low back pain; T14.8 Other injury of unspecified body region; R94.31 Abnormal electrocardiogram [ECG] [EKG]; F03.90 Unspecified dementia, unspecified severity, without behavioral disturbance, psychotic disturbance, mood disturbance, and anxiety; Z79.82 Long term (current) use of aspirin; Z79.899 Other long term (current) drug therapy; Z86.79 Personal history of other diseases of the circulatory system; Z87.448 Personal history of other diseases of urinary system; Z82.49 Family history of ischemic heart disease and other diseases of the circulatory system; F17.200 Nicotine dependence, unspecified, uncomplicated; W19.XXXA Unspecified fall, initial encounter

== ENCOUNTER → 2017-03-24 | Outpatient (CLI) | payer BC ==
[~2017-03-24] MED LIST changes: +FURO-85 PO; +LDXCR30 TOP
[2017-03-24 17:06] LABS: URINE APPEARANCE CLEAR (CLEAR); URINE BILIRUBIN NEG (NEG); URINE COLOR YELLOW; URINE NITRITE NEG (NEG); URINE PH 5.5 (4.5-7.5); URINE SPECIFIC GRAVITY 1.017 (1.000-1.030); UROBILINOGEN NEG (NEG)
[2017-03-24 17:09] LABS: MANUAL MICROSCOPIC REQUIRED? NO; REVIEW REQ? NO
== END | disposition home or self-care (01) ==
LOC: C.LABSPEC 16:21
PROVIDERS: ATTEND Urology
DX: N18.3 Chronic kidney disease, stage 3 (moderate) (principal); N28.9 Disorder of kidney and ureter, unspecified

== ENCOUNTER 2017-05-16 19:47 | Inpatient (IN) | payer BC, OTHER ==
[~2017-05-16] VITALS: Ht 177.8 cm; Wt 71.4 kg
--- NOTE | 2017-05-16 20:39 | EMERGENCY ROOM VISIT NOTE ---
History Report prepared by [place]: Liza Rolle Under the Supervision of: Dr. Raghav Jack D.O. First contact with patient: 20:28 Chief Complaint: WEAKNESS Stated Complaint: WEAK,COUGH,NO URINATION History of Present Illness The patient is an 89 year old male who presents to the Emergency Room with complaints of worsening weakness. He is accompanied by family. His daughter reports around 1700 this evening, his son-in-law found him "slumped on a chair and out of it". He had brought the patient his dinner, but he was unable to use a fork, which is unusual for the patient. They called his home caregiver, who found him to be febrile and dehydrated. His family gave him some cold compresses , which provided some relief. His family also admits the patient has a history of kidney infections, and follows with Dr. Lagunas, [facility] [place] [facility]. The patient has been experiencing poor urine output and a cough recently, but notes he is a former smoker. He denies any recent headache, abdominal pain or leg pain or swelling. He denies any recent choking or aspirating food or fluid into his lungs. The patients PCP is going to be Dr. Ogden with [facility] as he is in the midst of changing providers. Source of History: patient, family Onset: INDUSTRIAL INSULATOR Position: other (global) Timing: worsening Associated Symptoms: + urinary symptoms, No headache, No abdominal pain Review of Systems See HPI for pertinent positives & negatives. A total of 10 systems reviewed and were otherwise negative. Past Medical & Surgical Medical Problems: (1) Heart disease (2) Kidney disease Surgical Problems: (1) History of cholecystectomy Family History FH: heart disease Social History Smoking Status: Current Every Day Smoker Drug Use: none Marital Status: Housing Status: lives with family Occupation Status: retired Current/Historical Medications Scheduled Aspirin (Aspirin Ec), 81 MG PO DAILY Atenolol (Tenormin), 12.5 MG PO DAILY Atorvastatin (Lipitor), 80 MG PO QPM Cholecalciferol (Vitamin D3), 1,000 INTER.UNIT PO DAILY Fenofibrate (Tricor ), 145 MG PO DAILY Finasteride (Proscar), 5 MG PO DAILY Fluocinonide (Lidex 0.05% Cream), 1 APPLN TOP UD Furosemide (Lasix), 10 MG PO DAILY Loratadine (Claritin), 10 MG PO DAILY Rivastigmine Tartrate (Exelon), 1.5 MG PO BID Tamsulosin Hcl (Flomax), 0.4 MG PO DAILY Allergies Coded Allergies: No Known Allergies (Unverified , 12/25/16) Physical Exam Vital Signs Date Time Temp Pulse Resp B/P (MAP) Pulse Ox O2 Delivery O2 Flow Rate FiO2 05/16/17 21:56 60 16 140/75 96 Room Air 05/16/17 20:48 60 05/16/17 20:36 98 Room Air 05/16/17 20:19 37.3 60 16 111/65 94 Room Air Physical Exam GENERAL: Patient is listless but responds to verbal commands, he does not appear to be in pain or uncomfortable EYES: The conjunctivae are clear. The pupils are constricted and minimally reactive to light bilaterally EARS, NOSE, MOUTH AND THROAT: The nose is without any evidence of any deformity. Mucous membranes are moist tongue is midline NECK: The neck is nontender and supple. JVD bilaterally. RESPIRATORY: Lung sounds are diminished throughout with scattered rales, no tachypnea noted CARDIOVASCULAR: Regular rate and rhythm, systolic murmur noted GASTROINTESTINAL: The abdomen is moderately distended and diffusely tender, no guarding or rigidity appreciated BACK: No midline tenderness or or step-off noted range of motion in flexion extension as well as rotation no signs of muscle spasm noted MUSCULOSKELETAL/EXTREMITIES: There is no evidence of gross deformity full range of motion is noted in the hips and shoulders SKIN: Pedal edema bilaterally. There is no obvious evidence of any rash. There are no petechiae, pallor or cyanosis noted. NEUROLOGIC: Patient is oriented to person, place and situation. Strength is diminished but symmetric. Medical Decision & Procedures ER Provider Diagnostic Interpretation: Radiology results as stated below per my review and radiologist interpretation: CHEST ONE VIEW PORTABLE CLINICAL HISTORY: Sepsis. Cough. COMPARISON STUDY: Chest radiograph December 25, 2016. FINDINGS: A dual lead left subclavian pacemaker is noted. There are median sternotomy wires. Moderate cardiomegaly is again noted. No pneumothorax or pleural effusion is present. No consolidation is identified to suggest pneumonia. There is pulmonary vascular congestion with suspected mild pulmonary edema. IMPRESSION: 1. Pulmonary vascular congestion with suspected mild pulmonary edema. 2. Stable cardiomegaly. Electronically signed by: Jasbir Latif M.D. 05/16/2017 9:[address] OF THE HEAD WITHOUT CONTRAST CLINICAL HISTORY: Confusion. COMPARISON STUDY: Head CT March 11, 2017. CT DOSE: 962.12 mGy.cm TECHNIQUE: Helical axial images of the head were obtained without IV contrast. Automated exposure control was utilized for the study. A dose lowering technique was utilized adhering to the principles of ALARA. FINDINGS: No acute intracranial hemorrhage, midline shift or mass effect is present. Ventricular system is stable. Basilar cisterns are patent. There are no extra-axial collections. Moderate atrophy is noted with prominence of the extra-axial CSF spaces. There are no findings to suggest acute dural sinus thrombosis or acute territorial infarct. There is no calvarial fracture. A right maxillary sinus mucous retention cyst is noted with mild mucosal thickening. There is mild thickening of the ethmoid sinuses. IMPRESSION: No acute intracranial findings. Electronically signed by: Jasbir Latif M.D. 05/16/2017 9:[address] OF THE ABDOMEN AND PELVIS WITHOUT CONTRAST CLINICAL HISTORY: Decreased urine output. Weakness. Confusion. COMPARISON STUDY: CT of the abdomen and pelvis October 28, 2014. TECHNIQUE: Axial images of the abdomen and pelvis were obtained without IV contrast. Images were reviewed in the axial, sagittal, and coronal planes. A dose lowering technique was utilized adhering to the principles of ALARA. FINDINGS: Cardiomegaly is noted. Pacer leads are partially imaged. Mild multifocal airspace opacities are noted within visualized portions of the lungs. There is a trace right pleural effusion. Evaluation of the abdomen and pelvis is suboptimal on this unenhanced exam. Unenhanced images of liver, spleen, adrenal glands and pancreas are unremarkable. There are numerous water attenuation bilateral renal lesions. These are suboptimally assessed on this unenhanced exam but measure water attenuation and favor cysts. A right renal lesion is partially calcified. There is mild left hydroureteronephrosis. No ureteral calculi are identified. There is no biliary or pancreatic ductal dilatation. A 4.8 x 4.5 cm infrarenal abdominal aortic aneurysm has moderately increased in size since CT of October 28, 2014 when it measured 4.3 x 3.8 cm. There is no evidence for rupture. Note is made of mass-like asymmetry within the right posterior aspect of the prostate gland. This may reflect a prostate carcinoma with extracapsular extension. There has been interval development of multiple sclerotic skeletal lesions since CT of October 28, 2014, including a 2.6 cm right ischial tuberosity lesion, a 2.6 cm right sacral lesion and a 2.8 cm posterior left iliac bone lesion. There is no evidence for a bowel obstruction. No pneumatosis, free air or portal venous gas is present. There is no lymphadenopathy within the abdomen. 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 IMPRESSION: 1. Mild left hydroureteronephrosis of uncertain etiology. No ureteral calculi identified. 2. Multiple blastic skeletal lesions which are new since CT of October 28, 2014 and highly suggestive of skeletal metastases. Mass-like asymmetric enlargement of the right posterior aspect of the prostate gland raises the possibility prostate carcinoma with extracapsular extension and could account for the suspected blastic metastases. 3. Moderate increase in size of a 4.8 x 4.5 cm infrarenal abdominal aortic aneurysm since CT of October 28, 2014. No evidence of rupture. 4. Mild multifocal airspace opacities within visualized portions the lungs which could reflect an infectious process, atelectasis or pulmonary edema. Electronically signed by: Jasbir Latif M.D. 05/16/2017 10:07 PM Laboratory Results 05/16/17 21:00 Red Blood Count 3.88, Mean Corpuscular Volume 90.7, Mean Corpuscular Hemoglobin 29.4, Mean Corpuscular Hemoglobin Concent 31.9, Neutrophils (%) (Auto) 80.2, Lymphocytes (%) (Auto) 9.8, Monocytes (%) (Auto) 9.6, Eosinophils (%) (Auto) 0.0 , Basophils (%) (Auto) 0.1, Neutrophils # (Auto) 7.83, Lymphocytes # (Auto) 0.96 , Monocytes # (Auto) 0.94, Eosinophils # (Auto) 0.00, Basophils # (Auto) 0.01 05/16/17 21:00 Test 05/16/17 20:57 05/16/17 21:00 05/16/17 21:03 05/16/17 21:58 Urine Color YELLOW Urine Appearance CLEAR (CLEAR) Urine pH 5.0 (4.5-7.5) Urine Specific Schuyler 1.020 (1.000-1.030) Urine Protein NEG (NEG) Urine Glucose (UA) NEG (NEG) Urine Ketones NEG (NEG) Urine Occult Blood 3+ (NEG) Urine Nitrite NEG (NEG) Urine Bilirubin NEG (NEG) Urine Urobilinogen NEG (NEG) Urine Leukocyte Esterase NEG (NEG) Urine WBC (Auto) 1-5 /hpf (0-5) Urine RBC (Auto) >30 /hpf (0-4) Urine Hyaline Casts (Auto) 1-5 /lpf (0-5) Urine Epithelial Cells (Auto) 5-10 /lpf (0-5) Urine Bacteria (Auto) NEG (NEG) White Blood Count 9.77 K/uL (4.8-10.8) Red Blood Count 3.88 M/uL (4.7-6.1) Hemoglobin 11.4 g/dL (14.0-18.0) Hematocrit 35.2 % (42-52) Mean Corpuscular Volume 90.7 fL (80-100) Mean Corpuscular Hemoglobin 29.4 pg (25-34) Mean Corpuscular Hemoglobin Concent 31.9 g/dl (32-36) Platelet Count 52 K/uL (130-400) Neutrophils (%) (Auto) 80.2 % Lymphocytes (%) (Auto) 9.8 % Monocytes (%) (Auto) 9.6 % Eosinophils (%) (Auto) 0.0 % Basophils (%) (Auto) 0.1 % Neutrophils # (Auto) 7.83 K/uL (1.4-6.5) Lymphocytes # (Auto) 0.96 K/uL (1.2-3.4) Monocytes # (Auto) 0.94 K/uL (0.11-0.59) Eosinophils # (Auto) 0.00 K/uL (0-0.5) Basophils # (Auto) 0.01 K/uL (0-0.2) RDW Standard Deviation 48.4 fL (36.4-46.3) RDW Coefficient of Variation 14.5 % (11.5-14.5) Immature Granulocyte % (Auto) 0.3 % Immature Granulocyte # (Auto) 0.03 K/uL (0.00-0.02) Platelet Estimate DECREASED Ovalocytes 1+ Echinocytes 1+ Schistocytes 1+ Erythrocyte Sedimentation Rate 6 mm/hr (0-14) Prothrombin Time 13.2 SECONDS (9.0-12.0) Prothromb Time International Ratio 1.2 (0.9-1.1) Activated Partial Thromboplast Time 36.9 SECONDS (21.0-31.0) Partial Thromboplastin Ratio 1.4 Anion Gap 11.0 mmol/L (3-11) Est Creatinine Clear Calc Drug Dose 27.0 ml/min Estimated GFR () 39.7 Estimated GFR (Non- 34.2 BUN/Creatinine Ratio 18.7 (10-20) Calcium Level 9.0 mg/dl (8.5-10.1) Phosphorus Level 3.2 mg/dl (2.5-4.9) Magnesium Level 2.1 mg/dl (1.8-2.4) Total Bilirubin 1.0 mg/dl (0.2-1) Aspartate Amino Transf (AST/SGOT) 23 U/L (15-37) Alanine Aminotransferase (ALT/SGPT) 24 U/L (12-78) Alkaline Phosphatase 159 U/L (45-117) Total Creatine Kinase 63 U/L (39-308) Creatine Kinase MB 0.9 ng/ml (0.5-3.6) Creatine Kinase MB Ratio 1.4 (0-3.0) Troponin I 0.023 ng/ml (0-0.045) C-Reactive Protein 2.11 mg/dl (0-0.29) Pro-B-Type Natriuretic Peptide 5095 pg/ml (0-1800) Total Protein 7.0 gm/dl (6.4-8.2) Albumin 3.5 gm/dl (3.4-5.0) Globulin 3.5 gm/dl (2.5-4.0) Albumin/Globulin Ratio 1.0 (0.9-2) Lipase 69 U/L (73-393) Bedside Lactic Acid Venous 1.12 mmol/L (0.90-1.70) Venous Blood pH 7.39 (7.36-7.41) Venous Blood Partial Pressure CO2 45 mmHg (38.0-50.0) Venous Blood Partial Pressure O2 26 mmHg Venous Blood HCO3 26 mmol/L Venous Blood Oxygen Saturation < 60.0 % Venous Blood Base Excess 0.9 mEq/L Laboratory results per my review. Medications Administered Medications (Trade) Dose Ordered Sig/Roberto Route Start Time Stop Time Status Last Admin Dose Admin Sodium Chloride 500 ml @ 999 mls/hr Q31M STAT IV 05/16/17 22:18 05/16/17 22:48 05/16/17 22:32 999 MLS/HR Levofloxacin (Levaquin / D5W) 750 mg NOW STAT IV 05/16/17 22:18 05/16/17 22:19 DC 05/16/17 22:32 750 MG ECG Indication: weakness Rate (beats per minute): 60 Rhythm: other (ventricular paced) Findings: other (No PVC's, no salamatof beats) Change: no significant change (No change from 03/11/17) ED Course 2030: The patient was evaluated in room C1. A complete history and physical examination were performed. 2215: I reevaluated the patient. He is resting comfortably. I discussed my recommendation he remain in the hospital for further evaluation and management and his family verbalized complete understanding and agreement. 2220: I discussed the patients case with Dr. Dye [facility] Hospitalist. The patient will be further evaluated. Medical Decision Prior records/ancillary studies reviewed and summarized above. Nursing notes reviewed. Additional history obtained from the patients family. The patient's history was concerning for weakness. Differential diagnosis: Etiologies such as metabolic, infection, hypo/hyperglycemia, electrolyte abnormalities, cardiac sources, intracerebral event, toxicologic, neurologic, as well as others were entertained. The patient is an 89-year-old male who presented to the emergency department with family members for evaluation of altered mental status. The patient was living at home when his family members check on him. He noticed that the house was very hot the patient was felt to have a fever. The patient had the heat turned up very high. He presents to the emergency department today with some lethargy and confusion. His son also states that he was having significant difficulty eating. I discussed the patient's laboratory and radiographic studies with him and his family members. He was treated with IV antibiotics and IV fluids. I discussed his case with the on-call [facility] hospitalist. They 've agreed to evaluate the patient in the emergency department for further management and disposition. Medication Reconcilliation Current Medication List: was personally reviewed by me Blood Pressure Screening Patient's blood pressure: Normal blood pressure Blood pressure disposition: Did not require urgent referral Consults Time Called: 2219 Consulting Physician: Dr. Dye [facility] Hospitalist Returned Call: [phone] I discussed the patients case with Dr. Dye [facility] Hospitalist. The patient will be further evaluated. Impression Primary Impression: Generalized weakness Additional Impressions: Altered mental status Thrombocytopenia Hematuria Pneumonia Scribe Attestation The scribe's documentation has been prepared under my direction and personally reviewed by me in its entirety. I confirm that the note above accurately reflects all work, treatment, procedures, and medical decision making performed by me. Departure Information Dispostion Being Evaluated By Hospitalist Referrals No Doctor, Assigned (PCP) Patient Instructions My [facility] Problem Qualifiers Additional Impressions: Altered mental status Altered mental status type: unspecified Qualified Codes: R41.82 - Altered mental status, unspecified Hematuria Hematuria type: unspecified type Qualified Codes: R31.9 - Hematuria, unspecified Pneumonia Pneumonia type: due to unspecified organism Laterality: unspecified laterality Lung location: unspecified part of lung Qualified Codes: J18.9 - Pneumonia, unspecified organism
[2017-05-16 21:13] LABS: URINE APPEARANCE CLEAR (CLEAR); URINE BILIRUBIN NEG (NEG); URINE COLOR YELLOW; URINE NITRITE NEG (NEG); UROBILINOGEN NEG (NEG); ZZURINE CULT IF INDIC CATH NO
[2017-05-16 21:14] LABS: MANUAL MICROSCOPIC REQUIRED? NO; REVIEW REQ? NO
[2017-05-16 21:28] LABS: MEAN CORPUSCULAR HGB CONC 31.9 g/dl (32-36)
--- NOTE | 2017-05-16 21:28 | DIAGNOSTIC IMAGING REPORT ---
CHEST ONE VIEW PORTABLE CLINICAL HISTORY: Sepsis. Cough. COMPARISON STUDY: Chest radiograph December 25, 2016. FINDINGS: A dual lead left subclavian pacemaker is noted. There are median sternotomy wires. Moderate cardiomegaly is again noted. No pneumothorax or pleural effusion is present. No consolidation is identified to suggest pneumonia. There is pulmonary vascular congestion with suspected mild pulmonary edema. IMPRESSION: 1. Pulmonary vascular congestion with suspected mild pulmonary edema. 2. Stable cardiomegaly. Electronically signed by: Jasbir Latif M.D. 05/16/2017 9:27 PM Dictated Date/Time: 05/16/2017 9:21 PM
[2017-05-16 21:40] LABS: INR 1.2 (0.9-1.1); PARTIAL THROMBOPLASTIN RATIO 1.4; PROTHROMBIN TIME (PATIENT) 13.2 SECONDS (9.0-12.0)
--- NOTE | 2017-05-16 21:41 | DIAGNOSTIC IMAGING REPORT ---
CT OF THE HEAD WITHOUT CONTRAST CLINICAL HISTORY: Confusion. COMPARISON STUDY: Head CT March 11, 2017. CT DOSE: 962.12 mGy.cm TECHNIQUE: Helical axial images of the head were obtained without IV contrast. Automated exposure control was utilized for the study. A dose lowering technique was utilized adhering to the principles of ALARA. FINDINGS: No acute intracranial hemorrhage, midline shift or mass effect is present. Ventricular system is stable. Basilar cisterns are patent. There are no extra-axial collections. Moderate atrophy is noted with prominence of the extra-axial CSF spaces. There are no findings to suggest acute dural sinus thrombosis or acute territorial infarct. There is no calvarial fracture. A right maxillary sinus mucous retention cyst is noted with mild mucosal thickening. There is mild thickening of the ethmoid sinuses. IMPRESSION: No acute intracranial findings. Electronically signed by: Jasbir Latif M.D. 05/16/2017 9:39 PM Dictated Date/Time: 05/16/2017 9:37 PM
[2017-05-16 21:44] LABS: BUN/CREATININE RATIO 18.7 (10-20); C-REACTIVE PROTEIN 2.11 mg/dl (0-0.29); CREATININE 1.73 mg/dl (0.60-1.40); MAGNESIUM 2.1 mg/dl (1.8-2.4); POTASSIUM 4.1 mmol/L (3.5-5.1)
[2017-05-16 21:47] LABS: CKMB/CK RATIO 1.4 (0-3.0); PHOSPHORUS 3.2 mg/dl (2.5-4.9)
[2017-05-16 21:50] LABS: BASO % 0.1 %; BASO ABS # 0.01 K/uL (0-0.2); COMPLETE YES; ECHINOCYTES 1+; HEMATOCRIT 35.2 % (42-52); IG% 0.3 %; LYMPH % 9.8 %; LYMPH ABS # 0.96 K/uL (1.2-3.4); MEAN CELL VOLUME 90.7 fL (80-100); MEAN CORPUSCULAR HEMOGLOBIN 29.4 pg (25-34); MONO % 9.6 %; NEUT % 80.2 %; OVALOCYTES 1+; PLATELET COUNT 52 K/uL (130-400); PLT ESTIMATE DECREASED; RED BLOOD COUNT 3.88 M/uL (4.7-6.1); SCHISTOCYTES 1+; WHITE BLOOD COUNT 9.77 K/uL (4.8-10.8)
[2017-05-16 22:07] LABS: VEN BLD GAS O2 SATURATION < 60.0 %; VEN BLOOD GAS BASE EXCESS 0.9 mEq/L; VENOUS BLOOD GAS PCO2 45 mmHg (38.0-50.0); VENOUS BLOOD GAS PO2 26 mmHg
--- NOTE | 2017-05-16 22:08 | DIAGNOSTIC IMAGING REPORT ---
CT OF THE ABDOMEN AND PELVIS WITHOUT CONTRAST CLINICAL HISTORY: Decreased urine output. Weakness. Confusion. COMPARISON STUDY: CT of the abdomen and pelvis October 28, 2014. TECHNIQUE: Axial images of the abdomen and pelvis were obtained without IV contrast. Images were reviewed in the axial, sagittal, and coronal planes. A dose lowering technique was utilized adhering to the principles of ALARA. FINDINGS: Cardiomegaly is noted. Pacer leads are partially imaged. Mild multifocal airspace opacities are noted within visualized portions of the lungs. There is a trace right pleural effusion. Evaluation of the abdomen and pelvis is suboptimal on this unenhanced exam. Unenhanced images of liver, spleen, adrenal glands and pancreas are unremarkable. There are numerous water attenuation bilateral renal lesions. These are suboptimally assessed on this unenhanced exam but measure water attenuation and favor cysts. A right renal lesion is partially calcified. There is mild left hydroureteronephrosis. No ureteral calculi are identified. There is no biliary or pancreatic ductal dilatation. A 4.8 x 4.5 cm infrarenal abdominal aortic aneurysm has moderately increased in size since CT of October 28, 2014 when it measured 4.3 x 3.8 cm. There is no evidence for rupture. Note is made of mass-like asymmetry within the right posterior aspect of the prostate gland. This may reflect a prostate carcinoma with extracapsular extension. There has been interval development of multiple sclerotic skeletal lesions since CT of October 28, 2014, including a 2.6 cm right ischial tuberosity lesion, a 2.6 cm right sacral lesion and a 2.8 cm posterior left iliac bone lesion. There is no evidence for a bowel obstruction. No pneumatosis, free air or portal venous gas is present. There is no lymphadenopathy within the abdomen. 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 IMPRESSION: 1. Mild left hydroureteronephrosis of uncertain etiology. No ureteral calculi identified. 2. Multiple blastic skeletal lesions which are new since CT of October 28, 2014 and highly suggestive of skeletal metastases. Mass-like asymmetric enlargement of the right posterior aspect of the prostate gland raises the possibility prostate carcinoma with extracapsular extension and could account for the suspected blastic metastases. 3. Moderate increase in size of a 4.8 x 4.5 cm infrarenal abdominal aortic aneurysm since CT of October 28, 2014. No evidence of rupture. 4. Mild multifocal airspace opacities within visualized portions the lungs which could reflect an infectious process, atelectasis or pulmonary edema. . Electronically signed by: Jasbir Latif M.D. 05/16/2017 10:07 PM Dictated Date/Time: 05/16/2017 9:48 PM
[2017-05-16] MEDS ORDERED: LEVAQUIN 750MG / 150ML D5W IV STA (22:18)
[2017-05-16] MEDS ORDERED: SODIUM CHLORIDE 0.9% 500ML 500 ML IV STA (22:18)
[2017-05-16] MEDS ORDERED: FENO145T26 PO (22:42)
--- NOTE | 2017-05-16 23:04 | History and Physical ---
History & Physical Date & Time of Service: May 16, 2017 at 23:03 Chief Complaint: Weak,Cough,No Urination Primary Care Physician: Johnny Bunn D.O. History of Present Illness Source: patient, family, caregiver The patient is an 89-year-old male who reports to the emergency department with worsening weakness after being found by his son-in-law slumped on a chair and out of it. He was unable to use his fork to eat, was febrile, and appeared dehydrated, without significant relief by cold compresses. Family reports that he's had decreased urine output and a worsening cough over the past week or so, but they do note that he continues to smoke. Family states that the patient does not have any symptoms of aspiration such as coughing while eating, clearing his throat etc., when asked in the emergency department tonight. The patient does live alone, however, family provides two companions throughout the day, and his daughter lives 2 miles away and checks on him routinely. The patient is in the process of changing PCPs to Dr. Ogden from [facility]. Family also notes an issue with loose stools over the past weeks, and upon questioning report that he has been on antibiotics for recurrent UTIs in the recent past. Past Medical/Surgical History Medical Problems: (1) Heart disease Status: Chronic (2) Kidney disease Status: Resolved Surgical Problems: (1) History of cholecystectomy Status: Chronic Family History FH: heart disease Social History Smoking Status: Current Every Day Smoker Smokeless Tobacco Use: No Alcohol Use: none Drug Use: none Marital Status: Housing status: lives alone Occupational Status: retired Immunizations History of Influenza Vaccine: Unknown History of Tetanus Vaccine?: Unknown History of Pneumococcal: Unknown History of Hepatitis B Vaccine: Unknown Multi-Drug Resistant Organisms History of MDRO: No Allergies Coded Allergies: No Known Allergies (Unverified , 12/25/16) Home Medications Scheduled Aspirin (Aspirin Ec), 81 MG PO DAILY Atenolol (Tenormin), 12.5 MG PO DAILY Atorvastatin (Lipitor), 80 MG PO QPM Cholecalciferol (Vitamin D3), 1,000 INTER.UNIT PO DAILY Fenofibrate (Tricor ), 145 MG PO DAILY Finasteride (Proscar), 5 MG PO DAILY Fluocinonide (Lidex 0.05% Cream), 1 APPLN TOP UD Furosemide (Lasix), 10 MG PO DAILY Loratadine (Claritin), 10 MG PO DAILY Rivastigmine Tartrate (Exelon), 1.5 MG PO BID Tamsulosin Hcl (Flomax), 0.4 MG PO DAILY Review of Systems The family denies chest pain, palpitations, shortness of breath, lower extremity swelling, vision change, hearing change, sore throat, fevers, chills, sweats, nausea, vomiting, abdominal pain, pelvic pain, blood in urine or stool, dysuria, lightheadedness, dizziness, headache, loss of consciousness, rash, abnormal bruising or bleeding, focal weakness, numbness or tingling in arms or legs, generalized arthralgias or myalgias, back or neck pain, or night sweats. The patient is able to contribute somewhat to his history of present illness and review of systems, but most information is supplied by family in attendance. The review of systems is otherwise negative other than for that already noted above, and at least 10 systems have been reviewed. Physical Exam Vital Signs Date Time Temp Pulse Resp B/P (MAP) Pulse Ox O2 Delivery O2 Flow Rate FiO2 05/16/17 21:56 60 16 140/75 96 Room Air 05/16/17 20:48 60 05/16/17 20:36 98 Room Air 05/16/17 20:19 37.3 60 16 111/65 94 Room Air The patient is awake, alert and oriented 3, mildly melina complexion, with lower lid edema bilaterally, lying in bed and in no acute distress. HEENT--PERRL, EOMI, mucous membranes and oropharynx dry. Neck--supple, no JVD or bruits, thyroid normal, trachea midline, no adenopathy. Heart--normal S1 and S2, no extra beats, no murmurs, rubs or gallops. Lungs--crackles at the bases with coarse breath sounds and wheezes bilaterally, no respiratory distress, no accessory muscle use. Abdomen--normal bowel sounds and soft, nontender, mildly tympanitic, no hernias or masses, no organomegaly. Extremities--no cyanosis, clubbing or edema. There are good distal pulses b/l. Dermatologic--normal skin turgor, normal color, warm and dry, no abnormal lymph nodes, no rash. Neurologic--cranial nerves II through XII grossly intact. Rheumatologic--normal range of motion for age Psychiatric--normal affect. Diagnostics Laboratory Results Results Past 24 Hours Test 05/16/17 20:57 05/16/17 21:00 05/16/17 21:03 05/16/17 21:58 Range/Units Urine Color YELLOW Urine Appearance CLEAR CLEAR Urine pH 5.0 4.5-7.5 Urine Specific [place] 1.020 1.000-1.030 Urine Protein NEG NEG Urine Glucose (UA) NEG NEG Urine Ketones NEG NEG Urine Occult Blood 3+ NEG Urine Nitrite NEG NEG Urine Bilirubin NEG NEG Urine Urobilinogen NEG NEG Urine Leukocyte Esterase NEG NEG Urine WBC (Auto) 1-5 0-5 /hpf Urine RBC (Auto) >30 0-4 /hpf Urine Hyaline Casts (Auto) 1-5 0-5 /lpf Urine Epithelial Cells (Auto) 5-10 0-5 /lpf Urine Bacteria (Auto) NEG NEG White Blood Count 9.77 4.8-10.8 K/uL Red Blood Count 3.88 4.7-6.1 M/uL Hemoglobin 11.4 14.0-18.0 g/dL Hematocrit 35.2 42-52 % Mean Corpuscular Volume 90.7 80-100 fL Mean Corpuscular Hemoglobin 29.4 25-34 pg Mean Corpuscular Hemoglobin Concent 31.9 32-36 g/dl Platelet Count 52 130-400 K/uL Neutrophils (%) (Auto) 80.2 % Lymphocytes (%) (Auto) 9.8 % Monocytes (%) (Auto) 9.6 % Eosinophils (%) (Auto) 0.0 % Basophils (%) (Auto) 0.1 % Neutrophils # (Auto) 7.83 1.4-6.5 K/uL Lymphocytes # (Auto) 0.96 1.2-3.4 K/uL Monocytes # (Auto) 0.94 0.11-0.59 K/uL Eosinophils # (Auto) 0.00 0-0.5 K/uL Basophils # (Auto) 0.01 0-0.2 K/uL RDW Standard Deviation 48.4 36.4-46.3 fL RDW Coefficient of Variation 14.5 11.5-14.5 % Immature Granulocyte % (Auto) 0.3 % Immature Granulocyte # (Auto) 0.03 0.00-0.02 K/uL Platelet Estimate DECREASED Ovalocytes 1+ Echinocytes 1+ Schistocytes 1+ Erythrocyte Sedimentation Rate 6 0-14 mm/hr Prothrombin Time 13.2 9.0-12.0 SECONDS Prothromb Time International Ratio 1.2 0.9-1.1 Activated Partial Thromboplast Time 36.9 21.0-31.0 SECONDS Partial Thromboplastin Ratio 1.4 Sodium Level 142 136-145 mmol/L Potassium Level 4.1 3.5-5.1 mmol/L Chloride Level 107 98-107 mmol/L Carbon Dioxide Level 24 21-32 mmol/L Anion Gap 11.0 3-11 mmol/L Blood Urea Nitrogen 32 7-18 mg/dl Creatinine 1.73 0.60-1.40 mg/dl Est Creatinine Clear Calc Drug Dose 27.0 ml/min Estimated GFR () 39.7 Estimated GFR (Non- 34.2 BUN/Creatinine Ratio 18.7 10-20 Random Glucose 118 70-99 mg/dl Calcium Level 9.0 8.5-10.1 mg/dl Phosphorus Level 3.2 2.5-4.9 mg/dl Magnesium Level 2.1 1.8-2.4 mg/dl Total Bilirubin 1.0 0.2-1 mg/dl Aspartate Amino Transf (AST/SGOT) 23 15-37 U/L Alanine Aminotransferase (ALT/SGPT) 24 12-78 U/L Alkaline Phosphatase 159 45-117 U/L Total Creatine Kinase 63 39-308 U/L Creatine Kinase MB 0.9 0.5-3.6 ng/ml Creatine Kinase MB Ratio 1.4 0-3.0 Troponin I 0.023 0-0.045 ng/ml C-Reactive Protein 2.11 0-0.29 mg/dl Pro-B-Type Natriuretic Peptide 5095 0-1800 pg/ml Total Protein 7.0 6.4-8.2 gm/dl Albumin 3.5 3.4-5.0 gm/dl Globulin 3.5 2.5-4.0 gm/dl Albumin/Globulin Ratio 1.0 0.9-2 Lipase 69 73-393 U/L Bedside Lactic Acid Venous 1.12 0.90-1.70 mmol/L Venous Blood pH 7.39 7.36-7.41 Venous Blood Partial Pressure CO2 45 38.0-50.0 mmHg Venous Blood Partial Pressure O2 26 mmHg Venous Blood HCO3 26 mmol/L Venous Blood Oxygen Saturation < 60.0 % Venous Blood Base Excess 0.9 mEq/L Microbiology Results 05/16/17 Blood Culture, Received Pending 05/16/17 Blood Culture, Received Pending Diagnostic Radiology Patient Name: MYRNA HO Unit Number: [id number] Dictated: 05/16/172136 Transcribed: 05/16/172136 JA Printed Date/Time: [~ rep prt dt]/[~ rep prt tm] [~ rep ct labl] - [~ rep ct ivnm] [facility] [place] [address] Dictated: 05/16/172136 Transcribed: 05/16/172136 JA Printed Date/Time: [~ rep prt dt]/[~ rep prt tm] [~ rep ct labl] - [~ rep ct ivnm] [~ rep ct add3]] CT OF THE HEAD WITHOUT CONTRAST CLINICAL HISTORY: Confusion. COMPARISON STUDY: Head CT March 11, 2017. CT DOSE: 962.12 mGy.cm TECHNIQUE: Helical axial images of the head were obtained without IV contrast. Automated exposure control was utilized for the study. A dose lowering technique was utilized adhering to the principles of ALARA. FINDINGS: No acute intracranial hemorrhage, midline shift or mass effect is present. Ventricular system is stable. Basilar cisterns are patent. There are no extra-axial collections. Moderate atrophy is noted with prominence of the extra-axial CSF spaces. There are no findings to suggest acute dural sinus thrombosis or acute territorial infarct. There is no calvarial fracture. A right maxillary sinus mucous retention cyst is noted with mild mucosal thickening. There is mild thickening of the ethmoid sinuses. IMPRESSION: No acute intracranial findings. Electronically signed by: Jasbir Latif M.D. 05/16/2017 9:39 PM Dictated Date/Time: 05/16/2017 9:37 PM The status of this report is Signed. Draft = Not yet reviewed or approved by Radiologist. Signed = Reviewed and approved by Radiologist. <AttendingPhy></AttendingPhy> <FamilyPhy>Elsie Ogden, </FamilyPhy> < PrimaryPhy>Oni, Johnny E.,D.O.</PrimaryPhy> <UnitNumber>[id number]</ UnitNumber> <VisitNumber>[id number]</VisitNumber> <PatientName>MYRNA HO </PatientName> <DateOfBirth>1925</DateOfBirth> <Location>[facility]</Location> <ServiceDate>05/16/17</ServiceDate> <MNE>ESINDI</MNE> <OrderingPhy>Raghav JackO.</OrderingPhy> <OrderingPhyMNE>f rep ord dr bourgeois</OrderingPhyMNE> <DictatingPhyMNE>f rep dict dr bourgeois</DictatingPhyMNE> <CCListMNE>f rep ct mne</ CCListMNE> <AdmittingPhyMNE>f pt admit dr bourgeois</AdmittingPhyMNE> <AttendingPhyMNE >f pt attend dr bourgeois</AttendingPhyMNE> <ConsultingPhyMNE>f pt consult dr bourgeois</ConsultingPhyMNE> <FamilyPhyMNE>f pt fam dr bourgeois</FamilyPhyMNE> <OtherPhyMNE>f pt other dr bourgeois</OtherPhyMNE> < PrimaryPhyMNE>f pt prim care dr bourgeois</PrimaryPhyMNE> <ReferringPhyMNE>f pt referring dr bourgeois</ReferringPhyMNE> Patient Name: MYRNA HO Unit Number: [id number] Dictated: 05/16/172120 Transcribed: 05/16/172122 CARLO Printed Date/Time: [~ rep prt dt]/[~ rep prt tm] [~ rep ct labl] - [~ rep ct ivnm] [facility] [place] [address] Dictated: 05/16/172120 Transcribed: 05/16/172122 CARLO Printed Date/Time: [~ rep prt dt]/[~ rep prt tm] [~ rep ct labl] - [~ rep ct ivnm] [~ rep ct add3]] CHEST ONE VIEW PORTABLE CLINICAL HISTORY: Sepsis. Cough. COMPARISON STUDY: Chest radiograph December 25, 2016. FINDINGS: A dual lead left subclavian pacemaker is noted. There are median sternotomy wires. Moderate cardiomegaly is again noted. No pneumothorax or pleural effusion is present. No consolidation is identified to suggest pneumonia. There is pulmonary vascular congestion with suspected mild pulmonary edema. IMPRESSION: 1. Pulmonary vascular congestion with suspected mild pulmonary edema. 2. Stable cardiomegaly. Electronically signed by: Jasbir Latif M.D. 05/16/2017 9:27 PM Dictated Date/Time: 05/16/2017 9:21 PM The status of this report is Signed. Draft = Not yet reviewed or approved by Radiologist. Signed = Reviewed and approved by Radiologist. <AttendingPhy></AttendingPhy> <FamilyPhy>Elsie Ogden DO</FamilyPhy> < PrimaryPhy>Johnny Bunn D.O.</PrimaryPhy> <UnitNumber>[id number]</ UnitNumber> <VisitNumber>[id number]</VisitNumber> <PatientName>MYRNA HO </PatientName> <DateOfBirth>1925</DateOfBirth> <Location>[facility]</Location> <ServiceDate>05/16/17</ServiceDate> <MNE>ESINDI</MNE> <OrderingPhy>Raghav Jack D.O.</OrderingPhy> <OrderingPhyMNE>f rep ord dr bourgeois</OrderingPhyMNE> <DictatingPhyMNE>f rep dict dr bourgeois</DictatingPhyMNE> <CCListMNE>f rep ct bk</ CCListMNE> <AdmittingPhyMNE>f pt admit dr bourgeois</AdmittingPhyMNE> <AttendingPhyMNE >f pt attend dr bourgeois</AttendingPhyMNE> <ConsultingPhyMNE>f pt consult dr bourgeois</ConsultingPhyMNE> <FamilyPhyMNE>f pt fam dr bourgeois</FamilyPhyMNE> <OtherPhyMNE>f pt other dr bourgeois</OtherPhyMNE> < PrimaryPhyMNE>f pt prim care dr bourgeois</PrimaryPhyMNE> <ReferringPhyMNE>f pt referring dr bourgeois</ReferringPhyMNE> Patient Name: MYRNA HO Unit Number: [id number] Dictated: 05/16/172147 Transcribed: 05/16/172147 JA Printed Date/Time: [~ rep prt dt]/[~ rep prt tm] [~ rep ct labl] - [~ rep ct ivnm] [facility] [place] [address] Dictated: 05/16/172147 Transcribed: 05/16/172147 JA Printed Date/Time: [~ rep prt dt]/[~ rep prt tm] [~ rep ct labl] - [~ rep ct ivnm] CT OF THE ABDOMEN AND PELVIS WITHOUT CONTRAST CLINICAL HISTORY: Decreased urine output. Weakness. Confusion. COMPARISON STUDY: CT of the abdomen and pelvis October 28, 2014. TECHNIQUE: Axial images of the abdomen and pelvis were obtained without IV contrast. Images were reviewed in the axial, sagittal, and coronal planes. A dose lowering technique was utilized adhering to the principles of ALARA. FINDINGS: Cardiomegaly is noted. Pacer leads are partially imaged. Mild multifocal airspace opacities are noted within visualized portions of the lungs. There is a trace right pleural effusion. Evaluation of the abdomen and pelvis is suboptimal on this unenhanced exam. Unenhanced images of liver, spleen, adrenal glands and pancreas are unremarkable. There are numerous water attenuation bilateral renal lesions. These are suboptimally assessed on this unenhanced exam but measure water attenuation and favor cysts. A right renal lesion is partially calcified. There is mild left hydroureteronephrosis. No ureteral calculi are identified. There is no biliary or pancreatic ductal dilatation. A 4.8 x 4.5 cm infrarenal abdominal aortic aneurysm has moderately increased in size since CT of October 28, 2014 when it measured 4.3 x 3.8 cm. There is no evidence for rupture. Note is made of mass-like asymmetry within the right posterior aspect of the prostate gland. This may reflect a prostate carcinoma with extracapsular extension. There has been interval development of multiple sclerotic skeletal lesions since CT of October 28, 2014, including a 2.6 cm right ischial tuberosity lesion, a 2.6 cm right sacral lesion and a 2.8 cm posterior left iliac bone lesion. There is no evidence for a bowel obstruction. No pneumatosis, free air or portal venous gas is present. There is no lymphadenopathy within the abdomen. 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 IMPRESSION: 1. Mild left hydroureteronephrosis of uncertain etiology. No ureteral calculi identified. 2. Multiple blastic skeletal lesions which are new since CT of October 28, 2014 and highly suggestive of skeletal metastases. Mass-like asymmetric enlargement of the right posterior aspect of the prostate gland raises the possibility prostate carcinoma with extracapsular extension and could account for the suspected blastic metastases. 3. Moderate increase in size of a 4.8 x 4.5 cm infrarenal abdominal aortic aneurysm since CT of October 28, 2014. No evidence of rupture. 4. Mild multifocal airspace opacities within visualized portions the lungs which could reflect an infectious process, atelectasis or pulmonary edema. . Electronically signed by: Jasbir Latif M.D. 05/16/2017 10:07 PM Dictated Date/Time: 05/16/2017 9:48 PM The status of this report is Signed. Draft = Not yet reviewed or approved by Radiologist. Signed = Reviewed and approved by Radiologist. <AttendingPhy></AttendingPhy> <FamilyPhy>Elsie Ogden DO</FamilyPhy> < PrimaryPhy>Johnny Bunn D.O.</PrimaryPhy> <UnitNumber>[id number]</ UnitNumber> <VisitNumber>[id number]</VisitNumber> <PatientName>MYRNA HO </PatientName> <DateOfBirth>1925</DateOfBirth> <Location>[facility]</Location> <ServiceDate>05/16/17</ServiceDate> <MNE>ESINDI</MNE> <OrderingPhy>Raghav Jack D.O.</OrderingPhy> <OrderingPhyMNE>f rep ord dr bourgeois</OrderingPhyMNE> <DictatingPhyMNE>f rep dict dr bourgeois</DictatingPhyMNE> <CCListMNE>f rep ct bk</ CCListMNE> <AdmittingPhyMNE>f pt admit dr bourgeois</AdmittingPhyMNE> <AttendingPhyMNE >f pt attend dr bourgeois</AttendingPhyMNE> <ConsultingPhyMNE>f pt consult dr bourgeois</ConsultingPhyMNE> <FamilyPhyMNE>f pt fam dr bourgeois</FamilyPhyMNE> <OtherPhyMNE>f pt other dr bourgeois</OtherPhyMNE> < PrimaryPhyMNE>f pt prim care dr bourgeois</PrimaryPhyMNE> <ReferringPhyMNE>f pt referring dr bourgeois</ReferringPhyMNE> EKG EKG shows ventricular paced rhythm at 60 bpm, no acute ST-T changes, and no change compared to 03/11/2017 Impression Assessment and Plan Infectious disease/bilateral lower lobe pneumonia/UTI/diarrhea-- Send stool for C. difficile and treat with Flagyl by mouth with positive. Ceftriaxone 1 g IV daily. Levofloxacin 500 mg IV every 24 hours. Solu-Medrol 30 mg IV every 8 hours. Add probiotics Floranex. Xopenex/Atrovent nebulizer every 6 hours while awake every 2 hours when necessary. Guaifenesin extended release 600 mg by mouth twice a day. Advised tobacco cessation. Follow urine culture and sensitivity. 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 Cancer diagnosis appears to be new at this time. 400 mL urine retention noted via straight cath. Follow urine culture sensitivity, with antibiotics as noted above. Increased tamsulosin from 0.4-0.8 mg, and move to bedtime, with first dose tonight. Continue finasteride 5 mg daily for now. Could consider change to Avodart if no other aggressive therapy for prostate cancer as anticipated. Consult his urologist Dr. Lagunas. Hypertension/ventricular pacer-- Continue aspirin 81 mg by mouth daily, and atenolol 12.5 mg by mouth daily. Hold furosemide 10 mg by mouth daily and gently hydrate with IV fluids. Hyperlipidemia--continue atorvastatin 80 mg by mouth every evening and TriCor 145 mg by mouth daily. 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 Level of Care Telemetry Advanced Directives Existing Advance Directive: Yes Existing Living Will: Yes Existing Power of Armoring Machine Operator: Yes Resuscitation Status FULL NO MECH VENTILATION VTE Prophylaxis VTE Risk Assessment Done? Y/N: Yes Risk Level: Moderate Given or contraindicated: SCD's
[2017-05-16] MEDS ORDERED: TAMSULOSIN HCL 0.4 MG CAP PO STA (23:12)
[2017-05-16] MEDS ORDERED: ONDANSETRON INJ 2 MG/ML 2 ML VIAL IV PRN (23:15)
[2017-05-16] MEDS ORDERED: ACETAMINOPHEN 325 MG TAB PO PRN (23:15)
[2017-05-16] MEDS ORDERED: IPRATROPIUM BROMIDE NEB SOLN 0.02% 2.5 ML VIAL INH PRN (23:30)
[2017-05-16] MEDS ORDERED: LEVALBUTEROL 1.25MG/0.5ML NEB INH PRN (23:30)
[2017-05-17] VITALS (8 sets, daily range): BP systolic 94–126; BP diastolic 47–66; PULSE 59–68; TEMP 36.4–36.8; O2SAT 96–100; Ht 177.8 cm; Wt 71.4 kg
[2017-05-17] MEDS: CEFTRIAXONE SOD INJ 1 GM in DEXTROSE 5% ADD-VANTAGE 50ML 50 ML IV SCH (00:32)
[2017-05-17] MEDS: METHYLPREDNISOLONE IV 30 MG in SYRINGE 0 ML IV SCH ×3 (00:33→16:31)
[2017-05-17] MEDS: LEVALBUTEROL 1.25MG/0.5ML NEB INH SCH ×4 (02:18→19:29)
[2017-05-17] MEDS: IPRATROPIUM BROMIDE NEB SOLN 0.02% 2.5 ML VIAL INH SCH ×4 (02:18→19:29)
[2017-05-17] MEDS ORDERED: LEVALBUTEROL/IPRATROPIUM NEB INH SCH (03:00)
[2017-05-17 06:14] LABS: INR 1.3 (0.9-1.1); PARTIAL THROMBOPLASTIN RATIO 1.8; PROTHROMBIN TIME (PATIENT) 14.2 SECONDS (9.0-12.0)
[2017-05-17 06:19] LABS: BASO % 0.2 %; BASO ABS # 0.01 K/uL (0-0.2); COMPLETE YES; HEMATOCRIT 32.9 % (42-52); IG% 0.2 %; LARGE PLATELETS 1+; LYMPH % 5.8 %; LYMPH ABS # 0.34 K/uL (1.2-3.4); MEAN CELL VOLUME 91.4 fL (80-100); MEAN CORPUSCULAR HEMOGLOBIN 29.4 pg (25-34); MEAN CORPUSCULAR HGB CONC 32.2 g/dl (32-36); MEAN PLATELET VOLUME 12.2 fL (7.4-10.4); MONO % 2.4 %; NEUT % 91.4 %; OVALOCYTES 1+; PLATELET COUNT 45 K/uL (130-400); PLT ESTIMATE DECREASED; WHITE BLOOD COUNT 5.85 K/uL (4.8-10.8)
[2017-05-17 06:36] LABS: CALCIUM 8.4 mg/dl (8.5-10.1); CREATININE 1.4 mg/dl (0.60-1.40); POTASSIUM 3.8 mmol/L (3.5-5.1)
[2017-05-17] MEDS ORDERED: NON-FORMULARY MEDICATION SCH (07:45)
[2017-05-17] MEDS: FINASTERIDE 5 MG TAB PO SCH (08:36)
[2017-05-17] MEDS: FLUOCINONIDE 0.05% CR 15 GM TUBE EXT SCH (08:36)
[2017-05-17] MEDS: ASPIRIN 81 MG ECTAB PO SCH (08:37)
[2017-05-17] MEDS: GUAIFENESIN 600 MG TABCR PO SCH ×2 (08:41→21:14)
[2017-05-17] MEDS: RIVASTIGMINE TARTRATE (EXELON) 1.5 MG CAP PO SCH ×2 (08:41→21:14)
[2017-05-17] MEDS: FENOFIBRATE 145 MG TAB PO SCH (08:41)
[2017-05-17] MEDS: LORATADINE 10 MG TAB PO SCH (08:42)
[2017-05-17] MEDS: CHOLECALCIFEROL 1000 INTER.UNIT TAB PO SCH (08:42)
--- NOTE | 2017-05-17 16:14 | Progress Note ---
Subjective Date of Service: May 17, 2017. Subjective Pt evaluation today including: conversation w/ patient, physical exam, chart review, lab review, review of studies, review of inpatient medication list Resting comfortably in bed Coughing spells throughout the day Daughter at bedside Questions answered Problem List Medical Problems: (1) Altered mental status Status: Acute (2) Generalized weakness Status: Acute (3) Hematuria Status: Acute (4) Pneumonia Status: Acute (5) Thrombocytopenia Status: Acute (6) Wrist drop, left Status: Acute Surgical Problems: (1) History of cholecystectomy Status: Chronic Review of Systems Constitutional: No fever, No chills, No sweats, No weakness Eyes: No worsening of vision, No eye pain, No redness, No discharge ENT: No hearing loss, No unusual epistaxis, No nasal symptoms, No sore throat Respiratory: No cough, No sputum, No wheezing, No shortness of breath Cardiac: No chest pain, No orthopnea, No PND, No edema, No claudication Abdomen: No pain, No nausea, No vomiting, No diarrhea, No constipation Musculoskeletal: No joint pain, No muscle pain, No swelling, No calf pain Male : + dysuria, No urinary frequency, No incontinence, No slowing stream Neurologic: No memory loss, No paralysis, No weakness, No numbness/tingling Psychiatric: No depression symptoms, No anhedonism, No anxiety, No insomnia Endo: No fatigue, No excessive thirst Skin: No rash, No itch Objective Vital Signs Date Time Temp Pulse Resp B/P (MAP) Pulse Ox O2 Delivery O2 Flow Rate FiO2 05/17/17 15:21 36.4 59 18 126/66 (86) 98 05/17/17 14:21 68 16 98 Room Air 05/17/17 08:15 Room Air 05/17/17 07:34 36.6 60 18 126/65 (85) 100 05/17/17 07:13 60 16 96 Room Air 05/17/17 02:19 60 96 Room Air 05/17/17 01:00 36.8 61 18 94/50 98 Room Air 05/16/17 23:50 60 16 139/85 96 05/16/17 21:56 60 16 140/75 96 Room Air 05/16/17 20:48 60 05/16/17 20:36 98 Room Air 05/16/17 20:19 37.3 60 16 111/65 94 Room Air Physical Exam General Appearance: WD/WN, no apparent distress Eyes: normal inspection, PERRL, EOMI, sclerae normal Neck: supple, no adenopathy, thyroid normal, no JVD Respiratory/Chest: chest non-tender, lungs clear, normal breath sounds, no respiratory distress Cardiovascular: regular rate, rhythm, no edema, no gallop, no JVD Abdomen: normal bowel sounds, non tender, soft, no organomegaly Neurologic/Psychiatric: no motor/sensory deficits, alert, normal mood/affect, oriented x 3 Laboratory Results Last 24 Hours Test 05/16/17 20:57 05/16/17 21:00 05/16/17 21:03 05/16/17 21:58 Urine Color YELLOW Urine Appearance CLEAR Urine pH 5.0 Urine Specific [place] 1.020 Urine Protein NEG Urine Glucose (UA) NEG Urine Ketones NEG Urine Occult Blood 3+ Urine Nitrite NEG Urine Bilirubin NEG Urine Urobilinogen NEG Urine Leukocyte Esterase NEG Urine WBC (Auto) 1-5 /hpf Urine RBC (Auto) >30 /hpf Urine Hyaline Casts (Auto) 1-5 /lpf Urine Epithelial Cells (Auto) 5-10 /lpf Urine Bacteria (Auto) NEG White Blood Count 9.77 K/uL Red Blood Count 3.88 M/uL Hemoglobin 11.4 g/dL Hematocrit 35.2 % Mean Corpuscular Volume 90.7 fL Mean Corpuscular Hemoglobin 29.4 pg Mean Corpuscular Hemoglobin Concent 31.9 g/dl Platelet Count 52 K/uL Neutrophils (%) (Auto) 80.2 % Lymphocytes (%) (Auto) 9.8 % Monocytes (%) (Auto) 9.6 % Eosinophils (%) (Auto) 0.0 % Basophils (%) (Auto) 0.1 % Neutrophils # (Auto) 7.83 K/uL Lymphocytes # (Auto) 0.96 K/uL Monocytes # (Auto) 0.94 K/uL Eosinophils # (Auto) 0.00 K/uL Basophils # (Auto) 0.01 K/uL RDW Standard Deviation 48.4 fL RDW Coefficient of Variation 14.5 % Immature Granulocyte % (Auto) 0.3 % Immature Granulocyte # (Auto) 0.03 K/uL Platelet Estimate DECREASED Ovalocytes 1+ Echinocytes 1+ Schistocytes 1+ Erythrocyte Sedimentation Rate 6 mm/hr Prothrombin Time 13.2 SECONDS Prothromb Time International Ratio 1.2 Activated Partial Thromboplast Time 36.9 SECONDS Partial Thromboplastin Ratio 1.4 Sodium Level 142 mmol/L Potassium Level 4.1 mmol/L Chloride Level 107 mmol/L Carbon Dioxide Level 24 mmol/L Anion Gap 11.0 mmol/L Blood Urea Nitrogen 32 mg/dl Creatinine 1.73 mg/dl Est Creatinine Clear Calc Drug Dose 27.0 ml/min Estimated GFR () 39.7 Estimated GFR (Non- 34.2 BUN/Creatinine Ratio 18.7 Random Glucose 118 mg/dl Calcium Level 9.0 mg/dl Phosphorus Level 3.2 mg/dl Magnesium Level 2.1 mg/dl Total Bilirubin 1.0 mg/dl Aspartate Amino Transf (AST/SGOT) 23 U/L Alanine Aminotransferase (ALT/SGPT) 24 U/L Alkaline Phosphatase 159 U/L Total Creatine Kinase 63 U/L Creatine Kinase MB 0.9 ng/ml Creatine Kinase MB Ratio 1.4 Troponin I 0.023 ng/ml C-Reactive Protein 2.11 mg/dl Pro-B-Type Natriuretic Peptide 5095 pg/ml Total Protein 7.0 gm/dl Albumin 3.5 gm/dl Globulin 3.5 gm/dl Albumin/Globulin Ratio 1.0 Lipase 69 U/L Bedside Lactic Acid Venous 1.12 mmol/L Venous Blood pH 7.39 Venous Blood Partial Pressure CO2 45 mmHg Venous Blood Partial Pressure O2 26 mmHg Venous Blood HCO3 26 mmol/L Venous Blood Oxygen Saturation < 60.0 % Venous Blood Base Excess 0.9 mEq/L Test 05/17/17 05:37 White Blood Count 5.85 K/uL Red Blood Count 3.60 M/uL Hemoglobin 10.6 g/dL Hematocrit 32.9 % Mean Corpuscular Volume 91.4 fL Mean Corpuscular Hemoglobin 29.4 pg Mean Corpuscular Hemoglobin Concent 32.2 g/dl Platelet Count 45 K/uL Mean Platelet Volume 12.2 fL Neutrophils (%) (Auto) 91.4 % Lymphocytes (%) (Auto) 5.8 % Monocytes (%) (Auto) 2.4 % Eosinophils (%) (Auto) 0.0 % Basophils (%) (Auto) 0.2 % Neutrophils # (Auto) 5.35 K/uL Lymphocytes # (Auto) 0.34 K/uL Monocytes # (Auto) 0.14 K/uL Eosinophils # (Auto) 0.00 K/uL Basophils # (Auto) 0.01 K/uL RDW Standard Deviation 49.0 fL RDW Coefficient of Variation 14.5 % Immature Granulocyte % (Auto) 0.2 % Immature Granulocyte # (Auto) 0.01 K/uL Platelet Estimate DECREASED Large Platelets 1+ Ovalocytes 1+ Prothrombin Time 14.2 SECONDS Prothromb Time International Ratio 1.3 Activated Partial Thromboplast Time 45.7 SECONDS Partial Thromboplastin Ratio 1.8 Sodium Level 142 mmol/L Potassium Level 3.8 mmol/L Chloride Level 109 mmol/L Carbon Dioxide Level 22 mmol/L Anion Gap 11.0 mmol/L Blood Urea Nitrogen 31 mg/dl Creatinine 1.40 mg/dl Est Creatinine Clear Calc Drug Dose 33.4 ml/min Estimated GFR () 51.3 Estimated GFR (Non- 44.2 BUN/Creatinine Ratio 22.0 Random Glucose 119 mg/dl Calcium Level 8.4 mg/dl Magnesium Level 2.0 mg/dl Prostate Specific Antigen 55.700 ng/ml Assessment and Plan Bilateral lower lobe pneumonia vs UTI UA unremarkable, pt complaining of dysuria, urine cx pending, start on pyridium Ceftriaxone 1 g IV daily Mucinex 600 mg PO BID Levofloxacin 500 mg IV every 24 hours. Solu-Medrol 30 mg IV every 8 hours. Add probiotics Floranex. Xopenex/Atrovent nebulizer every 6 hours while awake every 2 hours when necessary. Guaifenesin extended release 600 mg by mouth twice a day. Advised tobacco cessation. 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 Cancer diagnosis appears to be new at this time. Follow urine culture sensitivity, with antibiotics as noted above. Increased tamsulosin from 0.4-0.8 mg, and move to bedtime, with first dose tonight. Continue finasteride 5 mg daily for now. Could consider change to Avodart if no other aggressive therapy for prostate cancer as anticipated. Consult his urologist Dr. Lagunas. Hypertension/ventricular pacer-- Continue aspirin 81 mg by mouth daily, and atenolol 12.5 mg by mouth daily. Hold furosemide 10 mg by mouth daily and gently hydrate with IV fluids. Hyperlipidemia--continue atorvastatin 80 mg by mouth every evening and TriCor 145 mg by mouth daily. 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
--- NOTE | 2017-05-17 17:51 | Urology Consultation ---
History General Date of Service: May 17, 2017. Primary Care Physician: Johnny Bunn D.O. Pt seen a urologist before?: Yes If yes, why?: urinary retention, urethral stricture, BPH History of Present Illness 89-year-old gentleman is well-known to my service He has struggled for several years with recurrent urinary tract infections and significant voiding dysfunction. His overall health has been up and down for that time We have taken a relatively conservative approach to his management whenever possible He unfortunately was recently admitted to the hospital and during that admission was found to have evidence of blastic bone disease likely consistent with metastatic prostate cancer PSA was approximately 55 on arrival Subjectively, he reports he is feeling quite well right now 05/17/17 05:37 Red Blood Count 3.60, Mean Corpuscular Volume 91.4, Mean Corpuscular Hemoglobin 29.4, Mean Corpuscular Hemoglobin Concent 32.2, Mean Platelet Volume 12.2, Neutrophils (%) (Auto) 91.4, Lymphocytes (%) (Auto) 5.8, Monocytes (%) (Auto) 2.4, Eosinophils (%) (Auto) 0.0, Basophils (%) (Auto) 0.2, Neutrophils # (Auto) 5.35, Lymphocytes # (Auto) 0.34, Monocytes # (Auto) 0.14, Eosinophils # (Auto) 0.00, Basophils # (Auto) 0.01 05/17/17 05:37 Test 05/16/17 20:57 05/16/17 21:00 05/16/17 21:03 05/16/17 21:58 Urine Color YELLOW Urine Appearance CLEAR (CLEAR) Urine pH 5.0 (4.5-7.5) Urine Specific [place] 1.020 (1.000-1.030) Urine Protein NEG (NEG) Urine Glucose (UA) NEG (NEG) Urine Ketones NEG (NEG) Urine Occult Blood 3+ (NEG) Urine Nitrite NEG (NEG) Urine Bilirubin NEG (NEG) Urine Urobilinogen NEG (NEG) Urine Leukocyte Esterase NEG (NEG) Urine WBC (Auto) 1-5 /hpf (0-5) Urine RBC (Auto) >30 /hpf (0-4) Urine Hyaline Casts (Auto) 1-5 /lpf (0-5) Urine Epithelial Cells (Auto) 5-10 /lpf (0-5) Urine Bacteria (Auto) NEG (NEG) Echinocytes 1+ Schistocytes 1+ Erythrocyte Sedimentation Rate 6 mm/hr (0-14) Phosphorus Level 3.2 mg/dl (2.5-4.9) Total Bilirubin 1.0 mg/dl (0.2-1) Aspartate Amino Transf (AST/SGOT) 23 U/L (15-37) Alanine Aminotransferase (ALT/SGPT) 24 U/L (12-78) Alkaline Phosphatase 159 U/L (45-117) Total Creatine Kinase 63 U/L (39-308) Creatine Kinase MB 0.9 ng/ml (0.5-3.6) Creatine Kinase MB Ratio 1.4 (0-3.0) Troponin I 0.023 ng/ml (0-0.045) C-Reactive Protein 2.11 mg/dl (0-0.29) Pro-B-Type Natriuretic Peptide 5095 pg/ml (0-1800) Total Protein 7.0 gm/dl (6.4-8.2) Albumin 3.5 gm/dl (3.4-5.0) Globulin 3.5 gm/dl (2.5-4.0) Albumin/Globulin Ratio 1.0 (0.9-2) Lipase 69 U/L (73-393) Bedside Lactic Acid Venous 1.12 mmol/L (0.90-1.70) Venous Blood pH 7.39 (7.36-7.41) Venous Blood Partial Pressure CO2 45 mmHg (38.0-50.0) Venous Blood Partial Pressure O2 26 mmHg Venous Blood HCO3 26 mmol/L Venous Blood Oxygen Saturation < 60.0 % Venous Blood Base Excess 0.9 mEq/L Test 05/17/17 05:37 White Blood Count 5.85 K/uL (4.8-10.8) Red Blood Count 3.60 M/uL (4.7-6.1) Hemoglobin 10.6 g/dL (14.0-18.0) Hematocrit 32.9 % (42-52) Mean Corpuscular Volume 91.4 fL (80-100) Mean Corpuscular Hemoglobin 29.4 pg (25-34) Mean Corpuscular Hemoglobin Concent 32.2 g/dl (32-36) Platelet Count 45 K/uL (130-400) Mean Platelet Volume 12.2 fL (7.4-10.4) Neutrophils (%) (Auto) 91.4 % Lymphocytes (%) (Auto) 5.8 % Monocytes (%) (Auto) 2.4 % Eosinophils (%) (Auto) 0.0 % Basophils (%) (Auto) 0.2 % Neutrophils # (Auto) 5.35 K/uL (1.4-6.5) Lymphocytes # (Auto) 0.34 K/uL (1.2-3.4) Monocytes # (Auto) 0.14 K/uL (0.11-0.59) Eosinophils # (Auto) 0.00 K/uL (0-0.5) Basophils # (Auto) 0.01 K/uL (0-0.2) RDW Standard Deviation 49.0 fL (36.4-46.3) RDW Coefficient of Variation 14.5 % (11.5-14.5) Immature Granulocyte % (Auto) 0.2 % Immature Granulocyte # (Auto) 0.01 K/uL (0.00-0.02) Platelet Estimate DECREASED Large Platelets 1+ Ovalocytes 1+ Prothrombin Time 14.2 SECONDS (9.0-12.0) Prothromb Time International Ratio 1.3 (0.9-1.1) Activated Partial Thromboplast Time 45.7 SECONDS (21.0-31.0) Partial Thromboplastin Ratio 1.8 Anion Gap 11.0 mmol/L (3-11) Est Creatinine Clear Calc Drug Dose 33.4 ml/min Estimated GFR () 51.3 Estimated GFR (Non- 44.2 BUN/Creatinine Ratio 22.0 (10-20) Calcium Level 8.4 mg/dl (8.5-10.1) Magnesium Level 2.0 mg/dl (1.8-2.4) Prostate Specific Antigen 55.700 ng/ml (0.000-4.000) Laboratory Labs were reviewed and are within normal limits unless listed below. Labs are available in the chart and at [facility] Problem List Medical Problems: (1) Altered mental status Status: Acute (2) Generalized weakness Status: Acute (3) Hematuria Status: Acute (4) Pneumonia Status: Acute (5) Thrombocytopenia Status: Acute (6) Wrist drop, left Status: Acute Surgical Problems: (1) History of cholecystectomy Status: Chronic Past History BPH, coronary artery disease, GERD, hypertension, urinary tract infection Past Surgical History: cholecystectomy, other (urethral stricture) Family History FH: heart disease Social History Hx Tobacco Use In Past Year?: Yes Smoking: greater than 1 pack/day Marital status: Housing status: lives alone Occupation status: retired Immunizations History of Influenza Vaccine: Unknown History of Tetanus Vaccine?: Unknown History of Pneumococcal: Unknown History of Hepatitis B Vaccine: Unknown History of MDRO No Allergies Coded Allergies: No Known Allergies (Unverified , 12/25/16) Medications Home Medications: Home Meds and Scripts Medications Dose Route/Sig Max Daily Dose Days Date Category Tricor (Fenofibrate) 145 Mg Tab 145 Mg PO DAILY 05/16/17 Reported Lidex 0.05% Cream (Fluocinonide) 90 Appln/30 Gm Cr 1 Appln TOP UD 03/11/17 Reported Lasix (Furosemide) 20 Mg Tab 10 Mg PO DAILY 03/11/17 Reported Aspirin Ec (Aspirin) 81 Mg Tab 81 Mg PO DAILY 03/25/16 Reported Vitamin D3 (Cholecalciferol) 1,000 Unit Tab 1,000 Inter.unit PO DAILY 03/25/16 Reported Flomax (Tamsulosin Hcl) 0.4 Mg Cap 0.4 Mg PO DAILY 03/25/16 Reported Claritin (Loratadine) 10 Mg Tab 10 Mg PO DAILY 03/25/16 Reported Tenormin (Atenolol) 25 Mg Tab 12.5 Mg PO DAILY 03/25/16 Reported Proscar (Finasteride) 5 Mg Tab 5 Mg PO DAILY 03/25/16 Reported Lipitor (Atorvastatin Calcium) 80 Mg Tab 80 Mg PO QPM 03/25/16 Reported Exelon (Rivastigmine Tartrate) 1.5 Mg Cap 1.5 Mg PO BID 03/25/16 Reported Inpatient Medications: Current Inpatient Medications Medications (Trade) Dose Ordered Sig/Roberto Route Start Time Stop Time Status Last Admin Dose Admin Acetaminophen (Tylenol Tab) 650 mg Q4H PRN PO 05/16/17 23:15 06/15/17 23:14 Aspirin (Ecotrin Tab) 81 mg DAILY PO 05/17/17 09:00 06/16/17 08:59 05/17/17 08:37 81 MG Atenolol (Tenormin Tab) 12.5 mg DAILY PO 05/17/17 09:00 06/16/17 08:59 05/17/17 08:37 12.5 MG Atorvastatin Calcium (Lipitor Tab) 80 mg QPM PO 05/17/17 21:00 06/16/17 20:59 Cholecalciferol (Vitamin D Tab) 1,000 inter.unit DAILY PO 05/17/17 09:00 06/16/17 08:59 05/17/17 08:42 1,000 INTER.UNIT Fenofibrate (Tricor Tab) 145 mg DAILY PO 05/17/17 09:00 06/16/17 08:59 05/17/17 08:41 145 MG Finasteride (Proscar Tab) 5 mg DAILY PO 05/17/17 09:00 06/16/17 08:59 05/17/17 08:36 5 MG Fluocinonide (Lidex Crm) 1 appln DAILY EXT 05/17/17 09:00 06/16/17 08:59 05/17/17 08:36 1 APPLN Loratadine (Claritin Tab) 10 mg DAILY PO 05/17/17 09:00 06/16/17 08:59 05/17/17 08:42 10 MG Tamsulosin HCl (Flomax Cap) 0.8 mg HS PO 05/17/17 21:00 06/16/17 20:59 Rivastigmine Tartrate (Exelon Cap) 1.5 mg BID PO 05/17/17 09:00 06/16/17 08:59 05/17/17 08:41 1.5 MG Ondansetron HCl (Zofran Inj) 4 mg Q6H PRN IV 05/16/17 23:15 06/15/17 23:14 Methylprednisolone Sodium Succinate 30 mg/Syringe 0.48 ml @ 1.5 mls/min Q8H IV 05/17/17 00:00 06/16/17 00:00 05/17/17 16:31 1.5 MLS/MIN Ceftriaxone Sodium 1 gm/ Dextrose 50 ml @ 100 mls/hr Q24H IV 05/17/17 00:00 05/24/17 00:00 05/17/17 00:32 100 MLS/HR Levofloxacin 500 mg/Prmx 100 ml @ 100 mls/hr Q24H IV 05/17/17 22:00 05/22/17 22:59 Guaifenesin (Mucinex Contr Rel Tab) 600 mg Q12 PO 05/17/17 09:00 06/16/17 08:59 05/17/17 08:41 600 MG Ipratropium [place] (Atrovent 0.02% 0.5MG/2.5ML Neb) 0.5 mg Q6R INH 05/17/17 03:00 06/16/17 02:59 05/17/17 14:19 0.5 MG Levalbuterol (Xopenex 1.25MG/ 0.5ML Neb) 1.25 mg Q6R INH 05/17/17 03:00 06/16/17 02:59 05/17/17 14:19 1.25 MG Ipratropium [place] (Atrovent 0.02% 0.5MG/2.5ML Neb) 0.5 mg Q2H PRN INH 05/16/17 23:30 06/15/17 23:29 Levalbuterol (Xopenex 1.25MG/ 0.5ML Neb) 1.25 mg Q2H PRN INH 05/16/17 23:30 06/15/17 23:29 Degarelix Acetate (Firmagon) 120 mg 1000,1005 SQ 05/18/17 10:00 06/17/17 09:59 Review of Systems Review of Systems Constitutional: + fever, No chills, No frequent headaches, No weight loss, No problem reported Eyes: No see HPI, No blurred vision, No double vision, No eye pain, No loss of night vision, No problem reported Neurological: No see HPI, No dizzy, No passing out, No numbness/tingling, No seizures, No problem reported Endocrine: No see HPI, No excessive thirst, No too hot, No too cold, No tired/ sluggish, No problem reported Gastrointestinal: No see HPI, No abdominal pain, No indigestion, No nausea, No vomiting, No constipation, No diarrhea, No problem reported Cardiovascular: No see HPI, No heart murmur, No chest pain, No angina, No irregular heartbeat, No palpitations, No swelling ankles/feet, No problem reported Respiratory: No see HPI, No shortness of breath, No wheezing, No coughing up blood, No chronic cough, No problem reported Musculoskeletal: + back pain Blood / Lymphatic: No see HPI, No bleed easily, No bruise easily, No swollen glands, No problem reported Ears / Nose / Throat: No see HPI, No hearing loss, No sinus, No hoarse voice, No sore throat, No problem reported Psychologic / Mental: No see HPI, No nervous, No trouble remembering, No difficulty sleeping, No problem reported Male : + see HPI, + frequent urination, + leaking urine, + infections All Other Systems: Reviewed and Negative Physical Exam Vital Signs: Vital Signs Past 12 Hours Date Time Temp Pulse Resp B/P (MAP) Pulse Ox O2 Delivery O2 Flow Rate FiO2 05/17/17 15:21 36.4 59 18 126/66 (86) 98 05/17/17 14:21 68 16 98 Room Air 05/17/17 08:15 Room Air 05/17/17 07:34 36.6 60 18 126/65 (85) 100 05/17/17 07:13 60 16 96 Room Air Physical Exam: General Appearance: no apparent distress (comfortable appearing) Eyes: bilateral eyes normal inspection ENT: hearing grossly normal Neck: supple Respiratory/Chest: no respiratory distress, no accessory muscle use Cardiovascular: regular rate, rhythm, no edema Gastrointestinal: Abdomen: normal abdomen Renal: normal renal Extremities: non-tender Neurologic/Psychiatric: alert, normal mood/affect, oriented x 3 Skin: warm/dry Lymphatic: no adenopathy Assessment & Plan Assessment & Plan Suspected metastatic prostate cancer Given the findings, I feel that it is most appropriate to treat him with medications We have begun the process of ordering a firmagon loading dose I suspect he will tolerate this medication quite well with limited adverse effects He will remain on this with a monthly dose delivered as an outpatient I hope that this will control his prostate cancer and limit any symptomatic progression of disease His daughter was not present today, but I will attempt to communicate with her tomorrow
[2017-05-17] MEDS ORDERED: GUAIFENESIN 600 MG TABCR PO SCH (21:00)
[2017-05-17] MEDS: TAMSULOSIN HCL 0.4 MG CAP PO SCH (21:14)
[2017-05-17] MEDS: ATORVASTATIN 40 MG TAB PO SCH (21:15)
[2017-05-17] MEDS ORDERED: LEVOFLOXACIN / D5W 500 MG in PREMIXED IN D5W 100 ML IV SCH (22:00)
[2017-05-18] VITALS (7 sets, daily range): BP systolic 122–153; BP diastolic 68–76; PULSE 58–72; TEMP 36.6–36.8; O2SAT 96–99
[2017-05-18] MEDS: METHYLPREDNISOLONE IV 30 MG in SYRINGE 0 ML IV SCH ×3 (00:21→16:01)
[2017-05-18] MEDS: CEFTRIAXONE SOD INJ 1 GM in DEXTROSE 5% ADD-VANTAGE 50ML 50 ML IV SCH (00:22)
[2017-05-18] MEDS: LEVALBUTEROL 1.25MG/0.5ML NEB INH SCH ×4 (01:53→18:52)
[2017-05-18] MEDS: IPRATROPIUM BROMIDE NEB SOLN 0.02% 2.5 ML VIAL INH SCH ×4 (01:53→18:52)
[2017-05-18 06:23] LABS: MEAN CORPUSCULAR HGB CONC 31.6 g/dl (32-36)
[2017-05-18 06:30] LABS: INR 1.3 (0.9-1.1); PARTIAL THROMBOPLASTIN RATIO 1.6; PROTHROMBIN TIME (PATIENT) 13.5 SECONDS (9.0-12.0)
[2017-05-18 06:40] LABS: HEMATOCRIT 33.9 % (42-52); MEAN CELL VOLUME 90.9 fL (80-100); MEAN CORPUSCULAR HEMOGLOBIN 28.7 pg (25-34); RED BLOOD COUNT 3.73 M/uL (4.7-6.1); WHITE BLOOD COUNT 6.57 K/uL (4.8-10.8)
[2017-05-18 06:54] LABS: PLATELET COUNT 49 K/uL (130-400)
[2017-05-18 06:55] LABS: ANISOCYTOSIS PRESENT; COMPLETE YES; DOHLE BODIES 1+; ECHINOCYTES 1+; GIANT PLATELETS 1+; HYPERSEGMENTED POLYS 1+; IG% 0.2 %; LYMPH % 4.9 %; LYMPH ABS # 0.32 K/uL (1.2-3.4); MONO % 3.7 %; NEUT % 91.2 %; OVALOCYTES 1+; PLT ESTIMATE DECREASED; TOXIC GRANULATION 1+
[2017-05-18 06:56] LABS: CALCIUM 8.8 mg/dl (8.5-10.1); CREATININE 1.58 mg/dl (0.60-1.40); POTASSIUM 4.4 mmol/L (3.5-5.1)
[2017-05-18] MEDS: FLUOCINONIDE 0.05% CR 15 GM TUBE EXT SCH (07:40)
[2017-05-18] MEDS: LORATADINE 10 MG TAB PO SCH (07:42)
[2017-05-18] MEDS: CHOLECALCIFEROL 1000 INTER.UNIT TAB PO SCH (07:42)
[2017-05-18] MEDS: ATORVASTATIN 40 MG TAB PO SCH (07:42)
[2017-05-18] MEDS: FENOFIBRATE 145 MG TAB PO SCH (07:42)
[2017-05-18] MEDS: GUAIFENESIN 600 MG TABCR PO SCH ×3 (07:42→21:00)
[2017-05-18] MEDS: ASPIRIN 81 MG ECTAB PO SCH (07:42)
[2017-05-18] MEDS: FINASTERIDE 5 MG TAB PO SCH (07:43)
[2017-05-18] MEDS: RIVASTIGMINE TARTRATE (EXELON) 1.5 MG CAP PO SCH ×3 (07:43→21:00)
[2017-05-18] MEDS ORDERED: VANCOMYCIN CONSULT ACTIVE PRN (08:45)
[2017-05-18] MEDS ORDERED: VANCOMYCIN INJ 1,500 MG in SODIUM CHLORIDE 0.9% 500ML 500 ML IV ONE (10:00)
--- NOTE | 2017-05-18 10:03 | Pharmacy Progress Note ---
Pharmacy Abx Initial Consult Date of Service May 18, 2017. Pharmacy Dosing Scope Date of Consult: 05/18/17 Consultation requested by: Dr. Bonds Pharmacy is consulted to initiate Vanco IV dosing therapy, order appropriate labs and adjust drug dose/frequency. Subjective The patient is a 89 year old male admitted on May 16, 2017 at 23:03. Objective Height (Feet): 5 Height (Inches): 10.00 Weight (Kilograms): 66.000 Vital Signs (Past 12Hrs) Vital Signs Past 12 Hours Date Time Temp Pulse Resp B/P (MAP) Pulse Ox O2 Delivery O2 Flow Rate FiO2 05/18/17 08:00 Room Air 05/18/17 07:18 36.6 58 16 153/76 (101) 99 Room Air 05/18/17 06:58 66 16 98 Room Air 05/18/17 01:53 61 16 98 Room Air 05/18/17 00:00 Room Air 05/17/17 23:12 36.6 60 20 123/47 (72) 96 Room Air Lab Results (24Hrs) Laboratory Tests (24 Hours) Test 05/18/17 06:03 White Blood Count 6.57 K/uL (4.8-10.8) Red Blood Count 3.73 M/uL (4.7-6.1) L Hemoglobin 10.7 g/dL (14.0-18.0) L Hematocrit 33.9 % (42-52) L Mean Corpuscular Volume 90.9 fL (80-100) Mean Corpuscular Hemoglobin 28.7 pg (25-34) Mean Corpuscular Hemoglobin Concent 31.6 g/dl (32-36) L Platelet Count 49 K/uL (130-400) L Neutrophils (%) (Auto) 91.2 % Lymphocytes (%) (Auto) 4.9 % Monocytes (%) (Auto) 3.7 % Eosinophils (%) (Auto) 0.0 % Basophils (%) (Auto) 0.0 % Neutrophils # (Auto) 6.00 K/uL (1.4-6.5) Lymphocytes # (Auto) 0.32 K/uL (1.2-3.4) L Monocytes # (Auto) 0.24 K/uL (0.11-0.59) Eosinophils # (Auto) 0.00 K/uL (0-0.5) Basophils # (Auto) 0.00 K/uL (0-0.2) Micro Results Date/Time Source Procedure Growth Status 05/18/17 08:46 Blood Blood Culture Pending Received 05/18/17 08:29 Blood Blood Culture Pending Received 05/16/17 19:10 Blood Blood Culture - Preliminary Gram Positive Cocci Resulted 05/16/17 19:00 Blood Blood Culture - Preliminary NO GROWTH TO DATE. Resulted 05/18/17 01:30 Stool C.difficile Toxin B Gene (PCR) - Final No C. difficile toxin B gene detected Complete 05/17/17 10:10 Urine , Clean Catch Urine Culture Pending Received Risk Factors for Resistance None - last abx taken per insurance records was doxycycline 07/21/2016 x 7 days Assessment & Plan Assessment 89 year old male with suspected bacteremia secondary to urinary source vs PNA. One of two blood cultures currently growing GPC --> confirmed with microbiology that it is growing in clusters (not pairs/chains). Will treat aggressively with vancomycin to treat staph species until further organism identification complete to suggest de-escalation. Plan Vancomycin for treatment of bacteremia Vancomycin IV * Loading dose: 1,500 mg (23 mg/kg) * Maintenance dose: 1,000 mg IV (15 mg/kg) every 24 hours * Goal trough level for bacteremia : 15 to 20 mcg/mL * Trough/Random level ordered for 05/20/17 @ 0830 * Early trough ordered (prior to steady state) has been selected due to likelihood of drug accumulation in patient with h/o CKD. Of note, patient is also receiving Rocephin 1,000 mg IV daily + Levaquin 500 mg IV Q @24hrs Pharmacy will continue to follow and will adjust dose/frequency as necessary. Thank you.
[2017-05-18] MEDS: [UNRECOGNIZED DRUG - OTHER] SQ SCH (10:32)
--- NOTE | 2017-05-18 11:24 | Progress Note ---
Subjective Date of Service: May 18, 2017. 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 Pt reports he is feeling much better today. Daughter at bedside. Blood cultures preliminarily growing gram positive cocci. UC&S pending. He states he has some baseline dysuria and urinary hesitancy which is chronic for him. He has a hx of TURP and incomplete bladder emptying. Last PVR when he saw Dr. Lagunas in April as an outpatient was >600ml. He has received his Degarelix loading dose. Problem List Medical Problems: (1) Altered mental status Status: Acute (2) Generalized weakness Status: Acute (3) Hematuria Status: Acute (4) Pneumonia Status: Acute (5) Thrombocytopenia Status: Acute (6) Wrist drop, left Status: Acute Surgical Problems: (1) History of cholecystectomy Status: Chronic Review of Systems Constitutional: No fever, No chills Respiratory: No shortness of breath Cardiac: No chest pain Abdomen: No pain, No nausea, No vomiting Male : + slowing stream, No hematuria Heme: No abnormal bleeding/bruising Objective Vital Signs Date Time Temp Pulse Resp B/P (MAP) Pulse Ox O2 Delivery O2 Flow Rate FiO2 05/18/17 10:30 60 96 05/18/17 08:00 Room Air 05/18/17 07:18 36.6 58 16 153/76 (101) 99 Room Air 05/18/17 06:58 66 16 98 Room Air 05/18/17 01:53 61 16 98 Room Air 05/18/17 00:00 Room Air 05/17/17 23:12 36.6 60 20 123/47 (72) 96 Room Air 05/17/17 20:00 Room Air 05/17/17 19:29 60 16 96 Room Air 05/17/17 16:00 Room Air 05/17/17 15:21 36.4 59 18 126/66 (86) 98 05/17/17 14:21 68 16 98 Room Air Physical Exam General Appearance: no apparent distress Eyes: normal inspection ENT: hearing grossly normal Neck: no JVD Respiratory/Chest: no respiratory distress, no accessory muscle use Cardiovascular: no JVD Extremities: normal inspection Neurologic/Psychiatric: alert, normal mood/affect, oriented x 3 Skin: normal color Laboratory Results Last 24 Hours Test 05/18/17 06:03 White Blood Count 6.57 K/uL Red Blood Count 3.73 M/uL Hemoglobin 10.7 g/dL Hematocrit 33.9 % Mean Corpuscular Volume 90.9 fL Mean Corpuscular Hemoglobin 28.7 pg Mean Corpuscular Hemoglobin Concent 31.6 g/dl Platelet Count 49 K/uL Neutrophils (%) (Auto) 91.2 % Lymphocytes (%) (Auto) 4.9 % Monocytes (%) (Auto) 3.7 % Eosinophils (%) (Auto) 0.0 % Basophils (%) (Auto) 0.0 % Neutrophils # (Auto) 6.00 K/uL Lymphocytes # (Auto) 0.32 K/uL Monocytes # (Auto) 0.24 K/uL Eosinophils # (Auto) 0.00 K/uL Basophils # (Auto) 0.00 K/uL RDW Standard Deviation 48.5 fL RDW Coefficient of Variation 14.5 % Immature Granulocyte % (Auto) 0.2 % Immature Granulocyte # (Auto) 0.01 K/uL Hypersegmented Polys 1+ Toxic Granulation 1+ Dohle Bodies 1+ Platelet Estimate DECREASED Giant Platelets 1+ Anisocytosis PRESENT Ovalocytes 1+ Echinocytes 1+ Prothrombin Time 13.5 SECONDS Prothromb Time International Ratio 1.3 Activated Partial Thromboplast Time 40.4 SECONDS Partial Thromboplastin Ratio 1.6 Sodium Level 142 mmol/L Potassium Level 4.4 mmol/L Chloride Level 111 mmol/L Carbon Dioxide Level 23 mmol/L Anion Gap 8.0 mmol/L Blood Urea Nitrogen 41 mg/dl Creatinine 1.58 mg/dl Est Creatinine Clear Calc Drug Dose 29.6 ml/min Estimated GFR () 44.3 Estimated GFR (Non- 38.2 BUN/Creatinine Ratio 26.0 Random Glucose 132 mg/dl Calcium Level 8.8 mg/dl Magnesium Level 2.0 mg/dl Assessment and Plan A/P: Incomplete bladder emptying, BPH, suspected prostate cancer Suspect the pt's symptoms were primarily r/t his sepsis. Improved today. Management per primary service. As for his suspected prostate cancer, loading dose of Degarelix received today. Will avoid prostate bx unless absolutely needed. Plan for f/u with Dr. Lagunas in 1 month at the [facility]. Will receive his next injection of Degarelix at that time. Pt seems to be at his baseline voiding. Can check a PVR if symptoms worsen or unable to void. Will continue to follow along with primary service.
--- NOTE | 2017-05-18 15:48 | Progress Note ---
Subjective Date of Service: May 18, 2017. Subjective Pt evaluation today including: conversation w/ patient, conversation w/ family , physical exam, chart review, lab review, review of studies, conversation w/ rural health consultant, review of inpatient medication list Pt resting comfortably in bed Pain resolved Daughter at bedside, waiting to speak with urology No complaints or incidents overnight Problem List Medical Problems: (1) Altered mental status Status: Acute (2) Generalized weakness Status: Acute (3) Hematuria Status: Acute (4) Pneumonia Status: Acute (5) Thrombocytopenia Status: Acute (6) Wrist drop, left Status: Acute Surgical Problems: (1) History of cholecystectomy Status: Chronic Review of Systems Constitutional: No fever, No chills, No sweats, No weakness Eyes: No worsening of vision, No eye pain, No redness, No discharge Respiratory: No cough, No sputum, No wheezing, No shortness of breath Cardiac: No chest pain, No orthopnea, No PND, No edema Abdomen: No pain, No nausea, No vomiting, No diarrhea Musculoskeletal: No joint pain, No muscle pain, No swelling, No calf pain Male : + slowing stream, No dysuria, No urinary frequency, No incontinence Neurologic: No memory loss, No paralysis, No weakness, No numbness/tingling Psychiatric: No depression symptoms, No anhedonism, No anxiety, No insomnia Endo: No fatigue, No excessive thirst Skin: No rash, No itch Objective Vital Signs Date Time Temp Pulse Resp B/P (MAP) Pulse Ox O2 Delivery O2 Flow Rate FiO2 05/18/17 15:12 36.8 60 16 123/68 (86) 96 Room Air 05/18/17 14:12 72 16 98 Room Air 05/18/17 10:30 60 96 05/18/17 08:00 Room Air 05/18/17 07:18 36.6 58 16 153/76 (101) 99 Room Air 05/18/17 06:58 66 16 98 Room Air 05/18/17 01:53 61 16 98 Room Air 05/18/17 00:00 Room Air 05/17/17 23:12 36.6 60 20 123/47 (72) 96 Room Air 05/17/17 20:00 Room Air 05/17/17 19:29 60 16 96 Room Air 05/17/17 16:00 Room Air Physical Exam General Appearance: WD/WN, no apparent distress Eyes: normal inspection, PERRL, EOMI, sclerae normal Neck: supple, no adenopathy, thyroid normal, no JVD Respiratory/Chest: chest non-tender, lungs clear, normal breath sounds, no respiratory distress Cardiovascular: regular rate, rhythm, no edema, no gallop, no JVD Abdomen: normal bowel sounds, non tender, soft, no organomegaly Extremities: normal range of motion, non-tender, normal inspection, no pedal edema 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, no motor/sensory deficits, alert, normal mood/affect Skin: normal color, warm/dry, no rash Lymphatic: no adenopathy Laboratory Results Last 24 Hours Test 05/18/17 06:03 White Blood Count 6.57 K/uL Red Blood Count 3.73 M/uL Hemoglobin 10.7 g/dL Hematocrit 33.9 % Mean Corpuscular Volume 90.9 fL Mean Corpuscular Hemoglobin 28.7 pg Mean Corpuscular Hemoglobin Concent 31.6 g/dl Platelet Count 49 K/uL Neutrophils (%) (Auto) 91.2 % Lymphocytes (%) (Auto) 4.9 % Monocytes (%) (Auto) 3.7 % Eosinophils (%) (Auto) 0.0 % Basophils (%) (Auto) 0.0 % Neutrophils # (Auto) 6.00 K/uL Lymphocytes # (Auto) 0.32 K/uL Monocytes # (Auto) 0.24 K/uL Eosinophils # (Auto) 0.00 K/uL Basophils # (Auto) 0.00 K/uL RDW Standard Deviation 48.5 fL RDW Coefficient of Variation 14.5 % Immature Granulocyte % (Auto) 0.2 % Immature Granulocyte # (Auto) 0.01 K/uL Hypersegmented Polys 1+ Toxic Granulation 1+ Dohle Bodies 1+ Platelet Estimate DECREASED Giant Platelets 1+ Anisocytosis PRESENT Ovalocytes 1+ Echinocytes 1+ Prothrombin Time 13.5 SECONDS Prothromb Time International Ratio 1.3 Activated Partial Thromboplast Time 40.4 SECONDS Partial Thromboplastin Ratio 1.6 Sodium Level 142 mmol/L Potassium Level 4.4 mmol/L Chloride Level 111 mmol/L Carbon Dioxide Level 23 mmol/L Anion Gap 8.0 mmol/L Blood Urea Nitrogen 41 mg/dl Creatinine 1.58 mg/dl Est Creatinine Clear Calc Drug Dose 29.6 ml/min Estimated GFR () 44.3 Estimated GFR (Non- 38.2 BUN/Creatinine Ratio 26.0 Random Glucose 132 mg/dl Calcium Level 8.8 mg/dl Magnesium Level 2.0 mg/dl Assessment and Plan 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 Cancer diagnosis appears to be new at this time. Cont tamsulosin 0.8 mg qhs Continue finasteride 5 mg daily for now. Consulted urologist Dr. Lagunas, at baseline for voiding, prostate bx not to be done at this time, loading dose of degarelix given, f/u in 1 month with urology Bilateral lower lobe pneumonia vs UTI unlikely Cough likely related to bronchitis, pt is a longstanding smoker Urine cx NGTD, discontinued rocephin and levaquin 1/2 blood cx pos for gram pos cocci, likely contaminant, repeat cx and start on vanc Xopenex/Atrovent nebulizer every 6 hours while awake every 2 hours when necessary. Guaifenesin extended release 600 mg by mouth twice a day. Advised tobacco cessation. Hypertension/ventricular pacer-- Continue aspirin 81 mg by mouth daily, and atenolol 12.5 mg by mouth daily. Hold furosemide 10 mg by mouth daily and gently hydrate with IV fluids. Hyperlipidemia--continue atorvastatin 80 mg by mouth every evening and TriCor 145 mg by mouth daily. 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 dispo: awaiting repeat blood cx, PT/OT at this time
[2017-05-18] MEDS: TAMSULOSIN HCL 0.4 MG CAP PO SCH ×2 (20:27→21:00)
--- NOTE | 2017-05-18 22:28 | Progress Note ---
Progress Note Date of Service May 18, 2017. Progress Note Patient hallucinating and delirious overnight, refusing to take medications and wishes to call the police. He talked to his daughter on the phone and appeared confused. Walking around and moving all 4 extremities. Daughter called nursing as she is very concerned that it was due to degarelix injection as after this injection he had significant pain. She was with him in the afternoon and he had a few hallucinations then which the daughter reports as new for him. As per nursing staff at 20:00 the site of injection is not noticeable therefore does not appear to be an infection. He has a background of mild dementia (still drives) and takes rivastigmine. Daughter was reassured regarding diagnosis of delirium likely multifactorial - background of dementia, pain from injection, hospitalization, IV steroids, tobacco withdrawal. Assessment Delirium Plan 1:1 sitter overnight Please call for Haldol IM if patient at risk to self or others Nicotine replacement patch in the morning Will hand over to medical team in the morning Daughter to discuss with urology regarding further degarelix injections (<1% side effect - mental status changes)
[2017-05-19] VITALS (8 sets, daily range): BP systolic 140–162; BP diastolic 69–77; PULSE 60–63; TEMP 36.5–36.8; O2SAT 93–97
[2017-05-19] MEDS: METHYLPREDNISOLONE IV 30 MG in SYRINGE 0 ML IV SCH ×4 (00:19→23:47)
[2017-05-19] MEDS ORDERED: ALUMINUM/MAGNESIUM/SIMETH (MAALOX MAX) 30 ML UDC PO STA (00:49)
[2017-05-19] MEDS: IPRATROPIUM BROMIDE NEB SOLN 0.02% 2.5 ML VIAL INH SCH ×4 (02:03→19:11)
[2017-05-19] MEDS: LEVALBUTEROL 1.25MG/0.5ML NEB INH SCH ×4 (02:03→19:12)
[2017-05-19] MEDS ORDERED: LIDOCAINE HCL 2% JELLY 30 ML TUBE EXT ONE ×2 (05:56→10:05)
[2017-05-19 06:38] LABS: HEMATOCRIT 35.6 % (42-52); MEAN CELL VOLUME 90.1 fL (80-100); MEAN CORPUSCULAR HEMOGLOBIN 28.6 pg (25-34); MEAN CORPUSCULAR HGB CONC 31.7 g/dl (32-36); RED BLOOD COUNT 3.95 M/uL (4.7-6.1); WHITE BLOOD COUNT 8.69 K/uL (4.8-10.8)
[2017-05-19 06:47] LABS: MEAN PLATELET VOLUME 11.6 fL (7.4-10.4); PLATELET COUNT 52 K/uL (130-400)
[2017-05-19 07:00] LABS: COMPLETE YES; ECHINOCYTES 1+; GIANT PLATELETS 2+; IG% 0.5 %; LYMPH % 3.7 %; LYMPH ABS # 0.32 K/uL (1.2-3.4); NEUT % 91.8 %; OVALOCYTES 1+; TOXIC GRANULATION 1+
[2017-05-19 07:06] LABS: BUN/CREATININE RATIO 28.9 (10-20); CALCIUM 9.2 mg/dl (8.5-10.1); CREATININE 1.71 mg/dl (0.60-1.40); MAGNESIUM 2.4 mg/dl (1.8-2.4); POTASSIUM 4.5 mmol/L (3.5-5.1)
[2017-05-19 07:29] LABS: INR 1.2 (0.9-1.1); PARTIAL THROMBOPLASTIN RATIO 1.4; PROTHROMBIN TIME (PATIENT) 12.8 SECONDS (9.0-12.0)
--- NOTE | 2017-05-19 08:48 | DIAGNOSTIC IMAGING REPORT ---
CHEST ONE VIEW PORTABLE CLINICAL HISTORY: 89 years-old Male presenting with SOB. TECHNIQUE: Portable upright AP view of the chest was obtained. COMPARISON: 05/16/2017. FINDINGS: Left subclavian pacer with leads to the right atrium and right ventricular apex. Median sternotomy wires. Atherosclerosis of the aortic arch. Cardiac silhouette remains enlarged. Mildly prominent lung markings. Minimal bibasilar opacities, left greater than right. Trace right pleural effusion. No pneumothorax. Osseous structures normal. Upper abdomen normal. IMPRESSION: 1. Minimal bibasilar atelectasis and trace right pleural effusion. 2. Cardiomegaly. Mildly prominent lung markings may indicate volume overload. Electronically signed by: Alan Almaraz M.D. 05/19/2017 8:47 AM Dictated Date/Time: 05/19/2017 8:45 AM
--- NOTE | 2017-05-19 08:58 | Progress Note ---
Subjective Date of Service: May 19, 2017. (Fay Chanel CRNP) Subjective Pt evaluation today including: conversation w/ patient, chart review, lab review Voiding: voiding difficulty 89 yo male with presumed metastatic prostate cancer and suspected sepsis. Pt somewhat confused this morning. States he is in [place]. C/o urinary retention and suprapubic pain. He has only been able to void 50ml this morning. Bladder scanned for >900ml. Pt also c/o chest pain and SOB. (Fay Chanel CRNP) Pt evaluation today including: conversation w/ patient, conversation w/ family Pain: Moderate to severe Voiding: incontinence, voiding difficulty Unable to void. Well known history of bladder obstruction with hide dropper. (Bashir Monahan D.O.) Problem List Medical Problems: (1) Altered mental status Status: Acute (2) Generalized weakness Status: Acute (3) Hematuria Status: Acute (4) Pneumonia Status: Acute (5) Thrombocytopenia Status: Acute (6) Wrist drop, left Status: Acute Surgical Problems: (1) History of cholecystectomy Status: Chronic (Fay Chanel CRNP) Prostate Cancer Urinary obstruction (Bashir Monahan, Bladimir.O.) Review of Systems Constitutional: No fever, No chills Respiratory: + shortness of breath Cardiac: + chest pain Abdomen: + see HPI, + pain, No nausea, No vomiting Male : + problem reported (urinary retention ) Heme: No abnormal bleeding/bruising (Fay Chanel CRNP) All Other Systems: Reviewed and Negative (See HPI for ROS. All reviewed. Pertinent values in HPI) (Bashir Monahan D.O.) Objective Vital Signs Date Time Temp Pulse Resp B/P (MAP) Pulse Ox O2 Delivery O2 Flow Rate FiO2 05/19/17 08:30 36.6 60 18 140/77 (98) 96 Room Air 05/19/17 07:23 36.8 61 18 162/75 (104) 93 Room Air 05/19/17 07:03 62 16 96 Room Air 05/19/17 02:05 63 16 97 Room Air 05/19/17 01:00 Room Air 05/19/17 00:48 36.6 60 18 148/69 (95) 97 Room Air 05/18/17 18:57 60 16 98 Room Air 05/18/17 16:00 Room Air 05/18/17 15:12 36.8 60 16 123/68 (86) 96 Room Air 05/18/17 14:12 72 16 98 Room Air 05/18/17 10:30 60 96 (Fay Chanel CRNP) Physical Exam General Appearance: no apparent distress Eyes: normal inspection ENT: hearing grossly normal Neck: no JVD Respiratory/Chest: no respiratory distress, no accessory muscle use Cardiovascular: no JVD Abdomen: + pertinent finding (suprapubic distention and tenderness) Extremities: normal inspection Neurologic/Psychiatric: alert, normal mood/affect Skin: normal color (Fay Chanel CRNP) General Appearance: WD/WN, + mild distress Eyes: normal inspection ENT: normal ENT inspection Neck: supple, no JVD Cardiovascular: regular rate, rhythm Abdomen: + distended Extremities: normal range of motion, non-tender 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, alert, normal mood/affect, oriented x 3 Skin: normal color, warm/dry Lymphatic: no adenopathy (Moderate distended bladder with severe suprapubic tenderness) (Bashir Monahan D.OLorraine) Laboratory Results Last 24 Hours Test 05/19/17 06:20 White Blood Count 8.69 K/uL Red Blood Count 3.95 M/uL Hemoglobin 11.3 g/dL Hematocrit 35.6 % Mean Corpuscular Volume 90.1 fL Mean Corpuscular Hemoglobin 28.6 pg Mean Corpuscular Hemoglobin Concent 31.7 g/dl Platelet Count 52 K/uL Mean Platelet Volume 11.6 fL Neutrophils (%) (Auto) 91.8 % Lymphocytes (%) (Auto) 3.7 % Monocytes (%) (Auto) 4.0 % Eosinophils (%) (Auto) 0.0 % Basophils (%) (Auto) 0.0 % Neutrophils # (Auto) 7.98 K/uL Lymphocytes # (Auto) 0.32 K/uL Monocytes # (Auto) 0.35 K/uL Eosinophils # (Auto) 0.00 K/uL Basophils # (Auto) 0.00 K/uL RDW Standard Deviation 48.7 fL RDW Coefficient of Variation 14.7 % Immature Granulocyte % (Auto) 0.5 % Immature Granulocyte # (Auto) 0.04 K/uL Toxic Granulation 1+ Giant Platelets 2+ Ovalocytes 1+ Echinocytes 1+ Prothrombin Time 12.8 SECONDS Prothromb Time International Ratio 1.2 Activated Partial Thromboplast Time 36.7 SECONDS Partial Thromboplastin Ratio 1.4 Sodium Level 144 mmol/L Potassium Level 4.5 mmol/L Chloride Level 113 mmol/L Carbon Dioxide Level 24 mmol/L Anion Gap 7.0 mmol/L Blood Urea Nitrogen 49 mg/dl Creatinine 1.71 mg/dl Est Creatinine Clear Calc Drug Dose 27.3 ml/min Estimated GFR () 40.3 Estimated GFR (Non- 34.7 BUN/Creatinine Ratio 28.9 Random Glucose 154 mg/dl Calcium Level 9.2 mg/dl Magnesium Level 2.4 mg/dl (Fay Chanel CRNP) Assessment and Plan A/P: Incomplete bladder emptying, BPH, suspected prostate cancer AFVSS. Will order a stat chest x-ray and EKG and consult the hospitalist for further input on the pt's chest pain and SOB this morning. Pt increasingly confused as compared to yesterday as well. Noted to be in urinary retention. Attempted straight cath by nursing failed earlier this morning. Pt noted to be a difficult cath by Dr. Lagunas previously. Will order the cart, and Dr. Monahan to place zuleta catheter later this morning. Will continue to follow along with primary service. (Fay Chanel CRNP) (1) Urinary retention Assessment & Plan: Bedside scope with dilation and catheter placement. Emergent/Urgent consent with verbal consent from patient and patient's daughter. Will increase abx coverage for 1-2 days with ancef due to difficulty with palcement. May have hematuria. Continue to monitor and hydrate. Maintain catheter and do not remove until follow up with Urology. Procedure Note: Surgeon: Hero Procedure: Bedside cystoscopy and Dilation with Zuleta placement Complications: None Blood Loss: Minimal Anes: Local Lidocaine jelly Patient and patient's family gave verbal consent for urgent catheter placement due to severe distension and total retention. Patient was prepped and draped in the regular sterile fashion. A time out was completed. Local lidocaine Jelly was placed in the urethra and used to lubricate the instruments. After failing to place zuleta, a flexible Cystoscope was placed into the urethra and down to the bulbar region. Advancing the scope a pinpoint stricture was noted with inability to visualized the bladder. A wire was then placed into the stricture and the scope attempted to advance. After failure to advance, the scope was removed and with the wire in place serial dilation commenced with urethral dilators. A urine drip was noted with each placement of dilator. With the dilation up to 18 Fr, a 16 Fr [place] tip catheter was placed and advanced in to the bladder. Urine was immediately recieved with approx 1.2 L of urine drained. Terminal urine developed a pink/red tone. The balloon was inflated and the zuleta secured. The patient was cleaned and moved into a comfortable position in stable condition having tolerated the procedure well with no complications. I was present and participated in all aspects of the procedure. (2) Hematuria (Bashir Monahan, D.O.) Problem Qualifiers (1) Hematuria: Hematuria type: unspecified type Qualified Codes: R31.9 - Hematuria, unspecified
[2017-05-19] MEDS: ASPIRIN 81 MG ECTAB PO SCH (09:00)
[2017-05-19] MEDS ORDERED: VANCOMYCIN INJ 1,000 MG in SODIUM CHLORIDE 0.9% 250ML 250 ML IV SCH (09:00)
[2017-05-19] MEDS: [UNRECOGNIZED DRUG - OTHER] SQ SCH ×2 (10:00→10:05)
--- NOTE | 2017-05-19 10:50 | Clinical Documentation Query ---
QUERY 1 OF [address] RUTHERFORD, In your clinical opinion is this patient being managed for: ( x ) Metabolic Encephalopathy ( ) Not Agree ( ) Other explanation of clinical findings (Please Explain) ( ) Unable to determine (Please Define) ( ) Need to Discuss The medical record reflects the following clinical findings, treatment, and risk factors. Clinical Indicators: 89 yo male presenting with worsening weakness, confusion and fever. ER note indicates pt with some lethargy and confusion. 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 Clinical Indicators:Past medical history notes pt with kidney disease. Initial BUN 32, Cr 1.73 which did trend down to Cr 1.40, but has been trending back pu to Cr 1.71. Review of historical GFR showed range of 34.2-48.4 over the past 6 months. Treatment: 500 cc NSS bolus, IV levaquin, IV rocephin, monitor PRP's, Risk Factors: dehydration, heart disease, Hx HTN, bronchitis Please clarify and document your clinical opinion in the progress notes and discharge summary. Terms such as "probable", "suspected", "likely", "questionable", "possible", or "still to be ruled out" are acceptable. IF IN AGREEMENT, YOU MUST DOCUMENT ABOVE DIAGNOSTIC STATEMENT IN DAILY PROGRESS NOTES AND DISCHARGE SUMMARY. This document is not part of the patient's record. Thank You, Xiomara Parisi, RN [phone]
[2017-05-19] MEDS: FLUOCINONIDE 0.05% CR 15 GM TUBE EXT SCH (11:07)
[2017-05-19] MEDS: NICOTINE 21 MG/24 HR TDSY TD SCH (11:07)
[2017-05-19] MEDS: LORATADINE 10 MG TAB PO SCH (11:07)
[2017-05-19] MEDS: CHOLECALCIFEROL 1000 INTER.UNIT TAB PO SCH (11:07)
[2017-05-19] MEDS: GUAIFENESIN 600 MG TABCR PO SCH ×2 (11:07→20:26)
[2017-05-19] MEDS: ATORVASTATIN 40 MG TAB PO SCH (11:07)
[2017-05-19] MEDS: RIVASTIGMINE TARTRATE (EXELON) 1.5 MG CAP PO SCH ×2 (11:08→20:26)
[2017-05-19] MEDS: FINASTERIDE 5 MG TAB PO SCH (11:08)
[2017-05-19] MEDS: FENOFIBRATE 145 MG TAB PO SCH (11:08)
[2017-05-19] MEDS: CEFAZOLIN IV 2,000 MG in SYRINGE 0 ML IV SCH ×2 (13:13→22:01)
--- NOTE | 2017-05-19 14:45 | Progress Note ---
Subjective Date of Service: May 19, 2017. Subjective Pt evaluation today including: conversation w/ patient, conversation w/ family Sister is present and feels pt is still having some AMS, but better than he was last night. She states that he had a hallucination within an hour after getting abd injections yesterday afternoon, but this cleared. She noted that pt was at his usual when she left for the night, but that it appears that he became very confused around 9pm. She does state that pt has dementia at baseline, but he drives and lives alone with caregivers. She notes that he is usually oriented to person and place, but never year or other specifics about date. She also states that pt has had hallucinations in the past when he has urinary retention, but last night was far more pronounced. Pt states he has abd discomfort and distention at present. I saw pt after several unsuccessful attempts by nursing and urology to place zuleta and awaiting urology return for further attempt. Pt otherwise feels fine. Has been tolerating PO but low appetite. Pt denies fever, SOB, chest pain, n/v/c/d , LE pain or swelling. Pt reported chest pain to urology. Denies during my exam. EKG neg for acute. Problem List Medical Problems: (1) Altered mental status Status: Acute (2) Generalized weakness Status: Acute (3) Hematuria Status: Acute (4) Pneumonia Status: Acute (5) Thrombocytopenia Status: Acute (6) Urinary retention Status: Acute (7) Wrist drop, left Status: Acute Surgical Problems: (1) History of cholecystectomy Status: Chronic Review of Systems All Other Systems: Reviewed and Negative Objective Vital Signs Date Time Temp Pulse Resp B/P (MAP) Pulse Ox O2 Delivery O2 Flow Rate FiO2 05/19/17 08:30 36.6 60 18 140/77 (98) 96 Room Air 05/19/17 08:00 Room Air 05/19/17 07:23 36.8 61 18 162/75 (104) 93 Room Air 05/19/17 07:03 62 16 96 Room Air 05/19/17 02:05 63 16 97 Room Air 05/19/17 01:00 Room Air 05/19/17 00:48 36.6 60 18 148/69 (95) 97 Room Air 05/18/17 18:57 60 16 98 Room Air 05/18/17 16:00 Room Air 05/18/17 15:12 36.8 60 16 123/68 (86) 96 Room Air Physical Exam General Appearance: no apparent distress, + thin Eyes: EOMI, + pertinent finding (nystagmus noted b/l) ENT: hearing grossly normal Neck: supple Respiratory/Chest: normal breath sounds, no respiratory distress Cardiovascular: regular rate, rhythm, no edema Abdomen: non tender, soft Extremities: non-tender, no pedal edema Neurologic/Psychiatric: alert, + pertinent finding (oriented to person, belives he is in [place] and it is 1975) Skin: warm/dry, + pertinent finding (bruising noted) Laboratory Results Last 24 Hours Test 05/19/17 06:20 White Blood Count 8.69 K/uL Red Blood Count 3.95 M/uL Hemoglobin 11.3 g/dL Hematocrit 35.6 % Mean Corpuscular Volume 90.1 fL Mean Corpuscular Hemoglobin 28.6 pg Mean Corpuscular Hemoglobin Concent 31.7 g/dl Platelet Count 52 K/uL Mean Platelet Volume 11.6 fL Neutrophils (%) (Auto) 91.8 % Lymphocytes (%) (Auto) 3.7 % Monocytes (%) (Auto) 4.0 % Eosinophils (%) (Auto) 0.0 % Basophils (%) (Auto) 0.0 % Neutrophils # (Auto) 7.98 K/uL Lymphocytes # (Auto) 0.32 K/uL Monocytes # (Auto) 0.35 K/uL Eosinophils # (Auto) 0.00 K/uL Basophils # (Auto) 0.00 K/uL RDW Standard Deviation 48.7 fL RDW Coefficient of Variation 14.7 % Immature Granulocyte % (Auto) 0.5 % Immature Granulocyte # (Auto) 0.04 K/uL Toxic Granulation 1+ Giant Platelets 2+ Ovalocytes 1+ Echinocytes 1+ Prothrombin Time 12.8 SECONDS Prothromb Time International Ratio 1.2 Activated Partial Thromboplast Time 36.7 SECONDS Partial Thromboplastin Ratio 1.4 Sodium Level 144 mmol/L Potassium Level 4.5 mmol/L Chloride Level 113 mmol/L Carbon Dioxide Level 24 mmol/L Anion Gap 7.0 mmol/L Blood Urea Nitrogen 49 mg/dl Creatinine 1.71 mg/dl Est Creatinine Clear Calc Drug Dose 27.3 ml/min Estimated GFR () 40.3 Estimated GFR (Non- 34.7 BUN/Creatinine Ratio 28.9 Random Glucose 154 mg/dl Calcium Level 9.2 mg/dl Magnesium Level 2.4 mg/dl Assessment and Plan 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 Cancer diagnosis appears to be new Cont tamsulosin 0.8 mg qhs Continue finasteride 5 mg daily for now. 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 Guaifenesin extended release 600 mg by mouth twice a day. Advised tobacco cessation. Hypertension/ventricular pacer-- Continue aspirin 81 mg by mouth daily, and atenolol 12.5 mg by mouth daily. Hold furosemide 10 mg by mouth daily and gently hydrate with IV fluids. Hyperlipidemia--continue atorvastatin 80 mg by mouth every evening and TriCor 145 mg by mouth daily. 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 dispo: awaiting repeat blood cx, PT/OT at this time
[2017-05-19] MEDS: TAMSULOSIN HCL 0.4 MG CAP PO SCH (20:26)
[2017-05-20] VITALS (8 sets, daily range): BP systolic 119–157; BP diastolic 58–74; PULSE 59–61; TEMP 36.4–36.6; O2SAT 95–98
[2017-05-20] MEDS: IPRATROPIUM BROMIDE NEB SOLN 0.02% 2.5 ML VIAL INH SCH ×4 (01:44→19:04)
[2017-05-20] MEDS: LEVALBUTEROL 1.25MG/0.5ML NEB INH SCH ×4 (01:44→19:04)
[2017-05-20] MEDS: CEFAZOLIN IV 2,000 MG in SYRINGE 0 ML IV SCH (05:17)
[2017-05-20] MEDS: METHYLPREDNISOLONE IV 30 MG in SYRINGE 0 ML IV SCH ×2 (07:56→15:40)
[2017-05-20] MEDS: NICOTINE 21 MG/24 HR TDSY TD SCH (07:56)
[2017-05-20] MEDS: ASPIRIN 81 MG ECTAB PO SCH (07:56)
[2017-05-20] MEDS: LORATADINE 10 MG TAB PO SCH (07:57)
[2017-05-20] MEDS: FINASTERIDE 5 MG TAB PO SCH (07:57)
[2017-05-20] MEDS: RIVASTIGMINE TARTRATE (EXELON) 1.5 MG CAP PO SCH ×2 (07:58→20:45)
[2017-05-20] MEDS: CHOLECALCIFEROL 1000 INTER.UNIT TAB PO SCH (07:58)
[2017-05-20] MEDS: FLUOCINONIDE 0.05% CR 15 GM TUBE EXT SCH (07:58)
[2017-05-20] MEDS: GUAIFENESIN 600 MG TABCR PO SCH ×2 (07:58→20:32)
[2017-05-20] MEDS: ATORVASTATIN 40 MG TAB PO SCH (07:58)
[2017-05-20] MEDS: FENOFIBRATE 145 MG TAB PO SCH (07:59)
[2017-05-20] MEDS ORDERED: VANCOMYCIN TROUGH SCH (08:30)
--- NOTE | 2017-05-20 08:51 | Progress Note ---
Subjective Date of Service: May 20, 2017. Subjective Pt evaluation today including: conversation w/ patient, chart review, lab review Voiding: zuleta catheter in place (patent, draining dark, red urine) 89 yo male with suspected metastatic prostate cancer. Difficult zuleta placement yesterday by Dr. Monahan for urinary retention. 1.2L drained from bladder. 16Fr [place] tip placed after dilation. Zuleta now draining dark red urine without clot. No clots overnight per RN. Cr pending this morning. Pt denies pain. Problem List Medical Problems: (1) Altered mental status Status: Acute (2) Generalized weakness Status: Acute (3) Hematuria Status: Acute (4) Pneumonia Status: Acute (5) Thrombocytopenia Status: Acute (6) Urinary retention Status: Acute (7) Wrist drop, left Status: Acute Surgical Problems: (1) History of cholecystectomy Status: Chronic Review of Systems Constitutional: No fever, No chills Respiratory: No shortness of breath Cardiac: No chest pain Abdomen: No pain, No nausea, No vomiting Male : + hematuria Heme: + abnormal bleeding/bruising Objective Vital Signs Date Time Temp Pulse Resp B/P (MAP) Pulse Ox O2 Delivery O2 Flow Rate FiO2 05/20/17 07:19 36.6 60 18 157/74 (101) Room Air 05/20/17 07:00 61 16 98 Room Air 05/20/17 01:44 60 16 96 Room Air 05/20/17 00:00 96 Room Air 05/19/17 23:59 36.5 60 17 160/72 (101) 97 Room Air 05/19/17 19:12 60 16 96 Room Air 05/19/17 16:00 Room Air 05/19/17 15:57 36.7 61 18 145/74 (97) 95 Room Air Physical Exam General Appearance: no apparent distress Eyes: normal inspection ENT: hearing grossly normal Neck: no JVD Respiratory/Chest: no respiratory distress, no accessory muscle use Cardiovascular: no JVD Extremities: normal inspection Neurologic/Psychiatric: alert, normal mood/affect, + pertinent finding (Pt states he is at the "medical center" but that it is 1966, ) Skin: normal color Laboratory Results Last 24 Hours Test 05/20/17 08:33 Assessment and Plan (1) Urinary retention (2) Hematuria A/P: Gross hematuria, urinary retention with difficult zuleta placement, suspected metastatic prostate cancer AFVSS. Pt with some persistent confusion this morning thinking it is 1968. UC&S from 05-17 noted to be negative. Will observe gross hematuria for now. Irrigate zuleta catheter qshift and PRN. Continue to monitor H&H. Supportive management with transfusions PRN. Recommend discontinuing ASA while actively bleeding if able. May be difficult to place a 3-way or larger zuleta catheter if bleeding persists. Will continue to follow along with primary service. Problem Qualifiers (1) Hematuria: Hematuria type: unspecified type Qualified Codes: R31.9 - Hematuria, unspecified
[2017-05-20 09:16] LABS: CREATININE 1.81 mg/dl (0.60-1.40)
[2017-05-20] MEDS ORDERED: VANCOMYCIN INJ 1,250 MG in SODIUM CHLORIDE 0.9% 250ML 250 ML IV ONE (10:30)
--- NOTE | 2017-05-20 13:11 | Progress Note ---
Subjective Date of Service: May 20, 2017. Subjective Pt evaluation today including: conversation w/ patient, conversation w/ family Pt is feeling much improved today. His pelvic pain is resolved with the placement of the zuleta yesterday. Denies hallucinations. No chest pain or SOB. Pt denies fever, abd pain, n/v/c/d, LE pain or swelling. Daughter present and I returned to bedside to discuss with her. She feels pt is again improved from yesterday, but still not quite at his usual. She is happy with his progress. She states he has not had any hallucinations while she has been present. She states he has been on aspirin 81mg for some time. He has several stents in place, but the most recent was 8-9 years ago. He is on the aspirin as a preventive. She is more convinced at this point that the AMS was related to his urinary retention and not the chemo agent. Problem List Medical Problems: (1) Altered mental status Status: Acute (2) Generalized weakness Status: Acute (3) Hematuria Status: Acute (4) Pneumonia Status: Acute (5) Thrombocytopenia Status: Acute (6) Urinary retention Status: Acute (7) Wrist drop, left Status: Acute Surgical Problems: (1) History of cholecystectomy Status: Chronic Review of Systems All Other Systems: Reviewed and Negative Objective Vital Signs Date Time Temp Pulse Resp B/P (MAP) Pulse Ox O2 Delivery O2 Flow Rate FiO2 05/20/17 08:00 Room Air 05/20/17 07:19 36.6 60 18 157/74 (101) Room Air 05/20/17 07:00 61 16 98 Room Air 05/20/17 01:44 60 16 96 Room Air 05/20/17 00:00 96 Room Air 05/19/17 23:59 36.5 60 17 160/72 (101) 97 Room Air 05/19/17 19:12 60 16 96 Room Air 05/19/17 16:00 Room Air 05/19/17 15:57 36.7 61 18 145/74 (97) 95 Room Air Physical Exam Comments: General Appearance: no apparent distress, + thin Eyes: EOMI, + pertinent finding (nystagmus noted b/l) Respiratory/Chest: normal breath sounds, no respiratory distress Cardiovascular: regular rate, rhythm, no edema Abdomen: non tender, soft Extremities: non-tender, no pedal edema Neurologic/Psychiatric: alert, + pertinent finding (oriented to person, believes he is in [place] and unable to tell me that this is a hospital, unable to tell me what holiday is approaching), conversation is more fluid today Skin: warm/dry, + pertinent finding (bruising noted) Laboratory Results Last 24 Hours Test 05/20/17 08:33 Creatinine 1.81 mg/dl Est Creatinine Clear Calc Drug Dose 27.5 ml/min Estimated GFR () 37.6 Estimated GFR (Non- 32.4 Vancomycin Level Trough 6.0 mcg/ml Assessment and Plan 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 Cancer diagnosis appears to be new Cont tamsulosin 0.8 mg qhs Continue finasteride 5 mg daily for now. 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 Guaifenesin extended release 600 mg by mouth twice a day. Advised tobacco cessation. Hypertension/ventricular pacer-- Hold aspirin 81 mg by mouth daily after discussion with daughter-- this is preventive and can be restarted after bleeding is resolved atenolol 12.5 mg by mouth daily. Hold furosemide 10 mg by mouth daily and gently hydrate with IV fluids. Hyperlipidemia--continue atorvastatin 80 mg by mouth every evening and TriCor 145 mg by mouth daily. 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 dispo: PT/OT
[2017-05-20] MEDS: CEFAZOLIN IV 1,000 MG in SYRINGE 0 ML IV SCH (18:00)
[2017-05-20] MEDS: TAMSULOSIN HCL 0.4 MG CAP PO SCH (20:32)
[2017-05-21] MEDS: METHYLPREDNISOLONE IV 30 MG in SYRINGE 0 ML IV SCH ×2 (00:03→07:33)
[2017-05-21] MEDS: IPRATROPIUM BROMIDE NEB SOLN 0.02% 2.5 ML VIAL INH SCH ×2 (02:01→07:02)
[2017-05-21] MEDS: LEVALBUTEROL 1.25MG/0.5ML NEB INH SCH ×2 (02:01→07:02)
[2017-05-21 04:39] VITALS: BP 143/65; PULSE 59; TEMP 36.6; O2SAT 99
[2017-05-21] MEDS: CEFAZOLIN IV 1,000 MG in SYRINGE 0 ML IV SCH (05:10)
[2017-05-21 07:03] VITALS: PULSE 58; O2SAT 95
[2017-05-21 07:19] LABS: HEMATOCRIT 32.2 % (42-52); MEAN CELL VOLUME 92.3 fL (80-100); MEAN CORPUSCULAR HEMOGLOBIN 28.7 pg (25-34); MEAN CORPUSCULAR HGB CONC 31.1 g/dl (32-36); RED BLOOD COUNT 3.49 M/uL (4.7-6.1); WHITE BLOOD COUNT 7.33 K/uL (4.8-10.8)
[2017-05-21 07:23] VITALS: BP 137/65; PULSE 60; TEMP 36.5; O2SAT 100
[2017-05-21] MEDS: FLUOCINONIDE 0.05% CR 15 GM TUBE EXT SCH (07:33)
[2017-05-21] MEDS: LORATADINE 10 MG TAB PO SCH (07:33)
[2017-05-21] MEDS: CHOLECALCIFEROL 1000 INTER.UNIT TAB PO SCH (07:33)
[2017-05-21] MEDS: ASPIRIN 81 MG ECTAB PO SCH (07:34)
[2017-05-21] MEDS: FINASTERIDE 5 MG TAB PO SCH (07:34)
[2017-05-21] MEDS: GUAIFENESIN 600 MG TABCR PO SCH (07:34)
[2017-05-21] MEDS: FENOFIBRATE 145 MG TAB PO SCH (07:34)
[2017-05-21] MEDS: ATORVASTATIN 40 MG TAB PO SCH (07:34)
[2017-05-21] MEDS: RIVASTIGMINE TARTRATE (EXELON) 1.5 MG CAP PO SCH (07:34)
[2017-05-21] MEDS: NICOTINE 21 MG/24 HR TDSY TD SCH (07:35)
[2017-05-21 07:49] LABS: COMPLETE YES; CREATININE 1.65 mg/dl (0.60-1.40); IG% 0.5 %; LYMPH % 4.5 %; LYMPH ABS # 0.33 K/uL (1.2-3.4); MEAN PLATELET VOLUME 11.8 fL (7.4-10.4); MONO % 5.5 %; NEUT % 89.5 %; PLATELET COUNT 53 K/uL (130-400)
--- NOTE | 2017-05-21 10:44 | Progress Note ---
Subjective Date of Service: May 21, 2017. Subjective Pt evaluation today including: conversation w/ patient, physical exam, lab review Voiding: zuleta catheter in place Reports is doing extremely well He is still slightly confused He feels that the catheter has been extremely beneficial Problem List Medical Problems: (1) Altered mental status Status: Acute (2) Generalized weakness Status: Acute (3) Hematuria Status: Acute (4) Pneumonia Status: Acute (5) Thrombocytopenia Status: Acute (6) Urinary retention Status: Acute (7) Wrist drop, left Status: Acute Surgical Problems: (1) History of cholecystectomy Status: Chronic Review of Systems Constitutional: No see HPI, No fever, No chills, No sweats, No weight loss, No weakness, No fatigue, No problem reported Eyes: No see HPI, No worsening of vision, No eye pain, No redness, No discharge , No diplopia, No problem reported Abdomen: No see HPI, No pain, No nausea, No vomiting, No diarrhea, No constipation, No GI bleeding, No problem reported Male : No see HPI, No dysuria, No urinary frequency, No incontinence, No nocturia more than once/night, No slowing stream, No hematuria, No sexual dysfunction, No problem reported Objective Vital Signs Date Time Temp Pulse Resp B/P (MAP) Pulse Ox O2 Delivery O2 Flow Rate FiO2 05/21/17 08:00 Room Air 05/21/17 07:23 36.5 60 18 137/65 (89) 100 05/21/17 07:03 58 16 95 Room Air 05/21/17 04:39 36.6 59 18 143/65 (91) 99 Room Air 05/21/17 00:00 Room Air 05/20/17 23:54 36.4 60 18 119/58 (78) 97 Room Air 05/20/17 19:04 60 16 95 Room Air 05/20/17 16:00 Room Air 05/20/17 15:01 36.6 60 18 128/64 (85) 98 Room Air 05/20/17 14:44 59 16 98 Room Air Physical Exam General Appearance: no apparent distress Eyes: normal inspection ENT: hearing grossly normal Extremities: no pedal edema Neurologic/Psychiatric: alert Skin: warm/dry Laboratory Results Last 24 Hours Test 05/21/17 06:52 White Blood Count 7.33 K/uL Red Blood Count 3.49 M/uL Hemoglobin 10.0 g/dL Hematocrit 32.2 % Mean Corpuscular Volume 92.3 fL Mean Corpuscular Hemoglobin 28.7 pg Mean Corpuscular Hemoglobin Concent 31.1 g/dl Platelet Count 53 K/uL Mean Platelet Volume 11.8 fL Neutrophils (%) (Auto) 89.5 % Lymphocytes (%) (Auto) 4.5 % Monocytes (%) (Auto) 5.5 % Eosinophils (%) (Auto) 0.0 % Basophils (%) (Auto) 0.0 % Neutrophils # (Auto) 6.56 K/uL Lymphocytes # (Auto) 0.33 K/uL Monocytes # (Auto) 0.40 K/uL Eosinophils # (Auto) 0.00 K/uL Basophils # (Auto) 0.00 K/uL RDW Standard Deviation 50.1 fL RDW Coefficient of Variation 14.8 % Immature Granulocyte % (Auto) 0.5 % Immature Granulocyte # (Auto) 0.04 K/uL Creatinine 1.65 mg/dl Est Creatinine Clear Calc Drug Dose 30.7 ml/min Estimated GFR () 42.0 Estimated GFR (Non- 36.3 Assessment and Plan (1) Urinary retention (2) Hematuria Suspected metastatic prostate cancer; urinary retention #1 prostate cancer - Ideally, it would be nice to start treating him with a loading dose of Firmagon while inpt - I recommend fci hormone suppression as his first line therapy as he is treatment juancarlos #2 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
[2017-05-21 11:31] VITALS: BP 145/69; PULSE 57; TEMP 36.4; O2SAT 95
[2017-05-21 11:54] VITALS: BP 145/69; PULSE 57; TEMP 36.4; O2SAT 95
[2017-05-21] MEDS ORDERED: ASPI81TA28 PO (12:10)
[2017-05-21] MEDS ORDERED: TAMS0.4C38 PO (12:10)
[2017-05-21] MEDS ORDERED: VNTHFA/IN INH (12:11)
[2017-05-21] MEDS ORDERED: PRD20 PO (12:11)
[2017-05-21] MEDS ORDERED: GFNSR600 PO (12:11)
[2017-05-21] MEDS ORDERED: NICO21DI4 TD (12:11)
--- NOTE | 2017-05-21 12:18 | Discharge Instructions ---
Discharge Instructions Date of Service May 21, 2017. Admission Reason for Admission: Urinary retention, bronchitis Discharge Discharge Diagnosis / Problem: Urinary retention, bronchitis Discharge Goals Goal(s): Improve disease control, Diagnostic testing, Therapeutic intervention Activity Recommendations Activity Limitations: as noted below Lifting Limitations: gradually increase as tolerated (with home PT/OT) Exercise/Sports Limitations: gradually increase as tolerated (as per PT/OT) Shower/Bathe: no limitations Driving or Machine Use: no driving until after follow up appointment with PCP . Instructions / Follow-Up Instructions / Follow-Up You were admitted with confusion thought to be related to urinary retention due to enlarged prostate from your prostate cancer. A Sanchez catheter was placed and you had improvement. You were also treated with antibiotics for your bronchitis. It is recommended that you STOP SMOKING. You can use nicotine patches to help you quit smoking. Please finish out a course of prednisone for your bronchitis and use your new inhaler as needed for cough. You will leave your Sanchez catheter in at home until you see Urology again for your next chemotherapy treatment. You will have home nursing checking on you as well. 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 Platelets are a cell in your bloodstream that help you clot your blood. You need to have this followed by your PCP; you should remain OFF your Aspirin until all the blood clears from your urine in the bag. Please follow up with your new PCP as scheduled in 2 weeks. Please follow up with Urology in 1 month. Current Hospital Diet Patient's current hospital diet: Regular Diet Discharge Diet Recommended Diet: AHA Diet (Heart Healthy) Procedures Procedures Performed: CT Abdomen/Pelvis Pending Studies Studies pending at discharge: yes List of pending studies: Final Blood Culture results from 05/18/17-no growth to date at time of discharge. Laboratory Results Last 24 Hours Test 05/21/17 06:52 White Blood Count 7.33 K/uL Red Blood Count 3.49 M/uL Hemoglobin 10.0 g/dL Hematocrit 32.2 % Mean Corpuscular Volume 92.3 fL Mean Corpuscular Hemoglobin 28.7 pg Mean Corpuscular Hemoglobin Concent 31.1 g/dl Platelet Count 53 K/uL Mean Platelet Volume 11.8 fL Neutrophils (%) (Auto) 89.5 % Lymphocytes (%) (Auto) 4.5 % Monocytes (%) (Auto) 5.5 % Eosinophils (%) (Auto) 0.0 % Basophils (%) (Auto) 0.0 % Neutrophils # (Auto) 6.56 K/uL Lymphocytes # (Auto) 0.33 K/uL Monocytes # (Auto) 0.40 K/uL Eosinophils # (Auto) 0.00 K/uL Basophils # (Auto) 0.00 K/uL RDW Standard Deviation 50.1 fL RDW Coefficient of Variation 14.8 % Immature Granulocyte % (Auto) 0.5 % Immature Granulocyte # (Auto) 0.04 K/uL Creatinine 1.65 mg/dl Est Creatinine Clear Calc Drug Dose 30.7 ml/min Estimated GFR () 42.0 Estimated GFR (Non- 36.3 Medical Emergencies . Who to Call and When: Medical Emergencies: If at any time you feel your situation is an emergency, please call 911 immediately. . Non-Emergent Contact Non-Emergency issues call your: Primary Care Provider, Urologist Call Non-Emergent contact if: you have a fever, your pain is not controlled, your pain is worsening, your pain is unusual for you, your pain is concerning you, you have any medication questions you have increased blood in your Sanchez abg. . . "Provider Documentation" section prepared by Estela Macedo. . VTE Core Measure Inpt VTE Proph given/why not?: SCD's
--- NOTE | 2017-05-21 12:40 | Discharge Summary ---
Discharge Summary Date of Service May 21, 2017. 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-unclear if has CHF Hyperlipidemia Dementia Immunizations: Have You Had Influenza Vaccine: Unknown History of Tetanus Vaccine?: Unknown History of Pneumococcal: Unknown History of Hepatitis B Vaccine: Unknown Procedures: CT Abdomen/pelvis Head CT Chest xrays Consultations: Urology Medication Reconciliation New Medications: Albuterol Hfa (Ventolin Hfa) 200 Puffs/93435 Mcg Aers 2-4 PUFFS INH Q6H, #1 INHALER Prednisone (Prednisone) 20 Mg Tab 40 MG PO DAILY, #7 TABS x 2 days then 20mg daily x 2 days then 10mg daily x 2 days then STOP Guaifenesin Ext Rel (Mucinex Ext Rel) 600 Mg Tabcr 600 MG PO Q12 for 30 Days Nicotine (Nicoderm Cq) 21 Mg/24 Hr Dis 1 PATCH TD QAM for 14 Days, #14 Changed Medications: Aspirin (Aspirin Ec) 81 Mg Tab 81 MG PO DAILY for 30 Days (Medication details modified) HOLD until urine is completely clear of blood Tamsulosin Hcl (Flomax) 0.4 Mg Cap 0.8 MG PO HS for 30 Days, #60 CAP (Changed from: 0.4 MG; DAILY) Continued Medications: Atenolol (Tenormin) 25 Mg Tab 12.5 MG PO DAILY, TAB Atorvastatin (Lipitor) 80 Mg Tab 80 MG PO QPM, TAB Cholecalciferol (Vitamin D3) 1,000 Unit Tab 1000 INTER.UNIT PO DAILY, TAB Fenofibrate (Tricor ) 145 Mg Tab 145 MG PO DAILY, TAB Finasteride (Proscar) 5 Mg Tab 5 MG PO DAILY, TAB Fluocinonide (Lidex 0.05% Cream) 90 Appln/30 Gm Cr 1 APPLN TOP UD Furosemide (Lasix) 20 Mg Tab 10 MG PO DAILY, TAB Loratadine (Claritin) 10 Mg Tab 10 MG PO DAILY, TAB Rivastigmine Tartrate (Exelon) 1.5 Mg Cap 1.5 MG PO BID, CAP Discharge Exam Pt feeling well. Daughter reports he is at his baseline mental status. He denies pain, no CP or SOB, no abd pain, has a great appetite. He is not committed to quitting smoking when he returns home. Sanchez bag urine is significantly clearer than yesterday as per RN and daughter. Review of Systems: Constitutional: No fever, No chills Eyes: No problem reported ENT: No problem reported Respiratory: No shortness of breath Cardiovascular: No chest pain Abdomen: No pain, No nausea, No vomiting, No diarrhea, No constipation Musculoskeletal: No problem reported Neurologic: + memory loss Psychiatric: No problem reported Endocrine: No problem reported Hematologic / Lymphatic: No problem reported (and daughter reports she did hear of him having low platelets in the past but unaware of any further evaluation) Integumentary: No problem reported Physical Exam: General Appearance: WD/WN, no apparent distress (sitting in chair at bedside , pleasant) Eyes: normal inspection, sclerae normal ENT: hearing grossly normal Neck: trachea midline Respiratory/Chest: no respiratory distress, no accessory muscle use, + crackles (at bases bilat, otherwise CTAB) Cardiovascular: regular rate, rhythm, + systolic murmur (2/6 at LLSB), + pertinent finding (1+ pitting edema in distal legs bilat) Abdomen / GI: normal bowel sounds, non tender, soft Extremities: no calf tenderness, normal capillary refill Neurologic/Psychiatric: alert, + pertinent finding (oriented to type of place, town, month, season, but not year (daughter reports is baseline), and is able to name months of year backwards with self-correcting two times) Skin: normal color, warm/dry, no rash Hospital Course This pt is an 89 yo male with a h/o recently diagnosed Prostate cancer now with bony metastases to the pelvis--was admitted with altered mental status likely secondary to a tremendous amount of urinary retention ( 1.2L upon difficult Sanchez placement). He also had significant cough and subjective fever at home on admission. He was admitted and treated for the urinary retention, given his first dose of chemotherapy for prostate CA, and treated for acute bronchitis. Urinary retention/Prostate CA with mets to bones/Gross hematuria secondary to Sanchez trauma-hematuria almost completely resolved Increased dose of tamsulosin to 0.8 mg qhs Continue finasteride 5 mg daily Urology gave loading dose of degarelix (05/18) and f/u in 1 month for repeat dosing -Will be discharged to home with Sanchez catheter in place -restart Aspirin at home when urine completely clear-discussed with daughter Metabolic encephalopathy: likely related to urinary retention and acute bronchitis resolved, is at baseline per daughter Acute renal insufficiency in setting of CKD Stage III- 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 No signs of sepsis. No O2 requirement Cough likely related to bronchitis, pt is a longstanding smoker Urine cx NGTD, discontinued rocephin and levaquin 1/2 blood cx pos for alpha Strep, not Enterococcus or Strep pneumo, likely contaminant, repeat cx remain neg-was on Ancef and vanco-both discontinued on discharge -encouraged smoking cessation and can use nicotine patch -continue Guaifenesin extended release 600 mg by mouth twice a day. -finish out prednisone taper at home -gave Rx for albuterol inhaler for prn use at home Thrombocytopenia- platelets low at 53k on day of discharge which is stable at least since 2016 but no prior records before that. Daughter recalls discussion of this with PCP in the past but unsure of why he has this. No splenomegaly on CT scan here of abdomen. Is also anemic which is likely some chronic disease plus acute blood loss from gross hematuria, but WBC count normal. -suggest Hematology referral as outpt -holding ASA while with hematuria and low platelets -follow CBC as outpt Hypertension/Pacemaker in situ/CAD with h/o CABG and stents-- stable this admission, follows with Dr. Borjas as outpt routinely -continue to Hold aspirin 81 mg by mouth daily- can be restarted after bleeding is resolved completely at home -continue atenolol 12.5 mg by mouth daily. -did hold furosemide 10 mg by mouth daily and gently hydrate with IV fluids on admission--can restart lasix on discharge for LE edema Hyperlipidemia--continue atorvastatin 80 mg by mouth every evening and TriCor 145 mg by mouth daily. Dementia--continue Exelon 1.5 mg by mouth twice a day. Discharged to home with Home Health in place and has twice daily caregiver who is a RN (private pay), plus multiple family members checking on him Advised no driving until after seen by PCP Total Time Spent: Greater than 30 minutes This includes examination of the patient, discharge planning, medication reconciliation, and communication with other providers. Discharge Instructions Please refer to the electronic Patient Visit Report (Discharge Instructions) for additional information. Follow-Up PCP within 2 weeks Urology in 1 month Additional Copies To Elsie Ogden DO; Darrion Lagunas M.D.
== END 2017-05-21 13:19 | disposition home health service (06) | DRG 722 ==
LOC: C.EDB 19:48 → C.MED 23:03 → ENRESERV 23:22
PROVIDERS: ADMIT Hospitalist; ATTEND Family Medicine
PROC: 0T7D8ZZ Dilation of Urethra, Via Natural or Artificial Opening Endoscopic (ICD-10-PCS; principal; 2017-05-19)
DX: C61 Malignant neoplasm of prostate (principal); G93.41 Metabolic encephalopathy; C79.51 Secondary malignant neoplasm of bone; R44.3 Hallucinations, unspecified; N18.4 Chronic kidney disease, stage 4 (severe); S37.39XA Other injury of urethra, initial encounter; J20.9 Acute bronchitis, unspecified; I12.9 Hypertensive chronic kidney disease with stage 1 through stage 4 chronic kidney disease, or unspecified chronic kidney disease; E78.5 Hyperlipidemia, unspecified; K21.9 Gastro-esophageal reflux disease without esophagitis; G30.9 Alzheimer's disease, unspecified; F02.80 Dementia in other diseases classified elsewhere, unspecified severity, without behavioral disturbance, psychotic disturbance, mood disturbance, and anxiety; R33.8 Other retention of urine; F17.200 Nicotine dependence, unspecified, uncomplicated; Z79.82 Long term (current) use of aspirin; Z79.899 Other long term (current) drug therapy; Y84.6 Urinary catheterization as the cause of abnormal reaction of the patient, or of later complication, without mention of misadventure at the time of the procedure; Y92.230 Patient room in hospital as the place of occurrence of the external cause

== ENCOUNTER → 2017-05-31 | Outpatient (CLI) | payer BC, OTHER ==
[~2017-05-31] MED LIST changes: +FENO145T26 PO; +GFNSR600 PO; +NICO21DI4 TD; +PRD20 PO; +VNTHFA/IN INH
[2017-05-31 12:23] LABS: HEMATOCRIT 32.1 % (42-52); MEAN CELL VOLUME 93.3 fL (80-100); MEAN CORPUSCULAR HEMOGLOBIN 28.5 pg (25-34); MEAN CORPUSCULAR HGB CONC 30.5 g/dl (32-36); MEAN PLATELET VOLUME 12.8 fL (7.4-10.4); PLATELET COUNT 70 K/uL (130-400); RED BLOOD COUNT 3.44 M/uL (4.7-6.1); WHITE BLOOD COUNT 5.65 K/uL (4.8-10.8)
[2017-05-31 12:45] LABS: BLOOD UREA NITROGEN 24 mg/dl (7-18); BUN/CREATININE RATIO 17.3 (10-20); CALCIUM 8.6 mg/dl (8.5-10.1); CARBON DIOXIDE 27 mmol/L (21-32); CHLORIDE 106 mmol/L (98-107); CREATININE 1.37 mg/dl (0.60-1.40); GLUCOSE 116 mg/dl (70-99); SODIUM 139 mmol/L (136-145)
[2017-05-31 12:54] LABS: ACANTHOCYTES 1+; BASO % 0.2 %; BASO ABS # 0.01 K/uL (0-0.2); COMPLETE YES; EOS % 0.9 %; IG% 0.2 %; LYMPH % 11.7 %; LYMPH ABS # 0.66 K/uL (1.2-3.4); MONO % 9.6 %; NEUT % 77.4 %; OVALOCYTES 1+
== END ==
LOC: C.LABSPEC 11:11
PROVIDERS: ATTEND Family Medicine
DX: N18.3 Chronic kidney disease, stage 3 (moderate) (principal); I25.10 Atherosclerotic heart disease of native coronary artery without angina pectoris; C61 Malignant neoplasm of prostate; C79.51 Secondary malignant neoplasm of bone

== ENCOUNTER → 2017-06-06 | Outpatient (CLI) | payer BC ==
[2017-06-06 17:36] LABS: MEAN CELL VOLUME 94.2 fL (80-100); MEAN CORPUSCULAR HEMOGLOBIN 28.8 pg (25-34); MEAN CORPUSCULAR HGB CONC 30.6 g/dl (32-36); RED BLOOD COUNT 3.61 M/uL (4.7-6.1); WHITE BLOOD COUNT 3.39 K/uL (4.8-10.8)
[2017-06-06 18:09] LABS: PLATELET COUNT 76 K/uL (130-400)
[2017-06-06 18:13] LABS: BASO % 0.3 %; BASO ABS # 0.01 K/uL (0-0.2); COMPLETE YES; ECHINOCYTES 2+; EOS % 1.5 %; LYMPH % 23.6 %; MEAN PLATELET VOLUME 11.9 fL (7.4-10.4); MONO % 7.7 %; NEUT % 66.9 %; OVALOCYTES 1+
== END | disposition home or self-care (01) ==
LOC: C.LABSPEC 17:19
PROVIDERS: ATTEND Family Medicine
DX: C61 Malignant neoplasm of prostate (principal); D69.6 Thrombocytopenia, unspecified; I50.32 Chronic diastolic (congestive) heart failure; N18.3 Chronic kidney disease, stage 3 (moderate)

== ENCOUNTER → 2017-07-14 | Outpatient (CLI) | payer BC ==
[2017-07-14 18:05] LABS: BLOOD UREA NITROGEN 36 mg/dl (7-18); CALCIUM 9.4 mg/dl (8.5-10.1); CARBON DIOXIDE 27 mmol/L (21-32); CREATININE 1.62 mg/dl (0.60-1.40); GLUCOSE 91 mg/dl (70-99); POTASSIUM 4.5 mmol/L (3.5-5.1); SODIUM 139 mmol/L (136-145)
== END | disposition home or self-care (01) ==
LOC: C.LABPBG 11:49
PROVIDERS: ATTEND Urology
DX: R33.9 Retention of urine, unspecified (principal); N39.0 Urinary tract infection, site not specified

== ENCOUNTER → 2017-09-13 | Outpatient (CLI) | payer BC ==
[~2017-09-13] MED LIST changes: +CIPR-255 PO; +DGRI80 SQ
== END | disposition home or self-care (01) ==
LOC: C.LABSPEC 07:50
PROVIDERS: ATTEND Urology
DX: C61 Malignant neoplasm of prostate (principal)

== ENCOUNTER → 2017-09-14 | Outpatient (CLI) | payer BC ==
[2017-09-14 17:47] LABS: ALBUMIN 3.3 gm/dl (3.4-5.0); ALT/SGPT 31 U/L (12-78); BLOOD UREA NITROGEN 35 mg/dl (7-18); CALCIUM 9.3 mg/dl (8.5-10.1); CARBON DIOXIDE 27 mmol/L (21-32); CREATININE 1.89 mg/dl (0.60-1.40); GLUCOSE 116 mg/dl (70-99); POTASSIUM 4.5 mmol/L (3.5-5.1); SODIUM 141 mmol/L (136-145)
[2017-09-14 17:51] LABS: ALKALINE PHOSPHATASE 210 U/L (45-117); AST/SGOT 27 U/L (15-37); TOTAL PROTEIN 7.2 gm/dl (6.4-8.2)
== END | disposition home or self-care (01) ==
LOC: C.LABPBG 11:07
PROVIDERS: ATTEND Physician Assistant
DX: N39.0 Urinary tract infection, site not specified (principal); R31.9 Hematuria, unspecified; R60.9 Edema, unspecified

== ENCOUNTER 2017-09-15 11:26 | Emergency (ER) | payer BC ==
[~2017-09-15] VITALS: Ht 180.3 cm; Wt 61.0 kg
[~2017-09-15 11:26] MED LIST changes: -CIPR-255 PO; -DGRI80 SQ
[2017-09-15 11:31] VITALS: TEMP 36.8; Ht 180.3 cm; Wt 61.0 kg
[2017-09-15] MEDS ORDERED: CIPROFLOXACIN 500 MG TAB PO STA (12:00)
[2017-09-15 12:21] LABS: HEMATOCRIT 37.2 % (42-52); HEMOGLOBIN 11.3 g/dL (14.0-18.0); MEAN CELL VOLUME 94.2 fL (80-100); MEAN CORPUSCULAR HEMOGLOBIN 28.6 pg (25-34); MEAN CORPUSCULAR HGB CONC 30.4 g/dl (32-36); MEAN PLATELET VOLUME 11.6 fL (7.4-10.4); PLATELET COUNT 87 K/uL (130-400); RED CELL DISTRIBUTION WIDTH CV 15.7 % (11.5-14.5); RED CELL DISTRIBUTION WIDTH SD 54.1 fL (36.4-46.3); WHITE BLOOD COUNT 4.81 K/uL (4.8-10.8)
[2017-09-15 12:26] LABS: CALCIUM 9.4 mg/dl (8.5-10.1); CREATININE 1.83 mg/dl (0.60-1.40)
[2017-09-15 12:44] LABS: BASO % 0.2 %; BASO ABS # 0.01 K/uL (0-0.2); EOS % 1.9 %; EOS ABS # 0.09 K/uL (0-0.5); IG# 0.01 K/uL (0.00-0.02); LYMPH % 22.2 %; LYMPH ABS # 1.07 K/uL (1.2-3.4); MONO ABS # 0.48 K/uL (0.11-0.59); NEUT % 65.5 %; NEUT ABS # 3.15 K/uL (1.4-6.5)
[2017-09-15] MEDS ORDERED: TAMS0.4C38 PO (13:06)
[2017-09-15] MEDS ORDERED: ASPI81TA28 PO (13:06)
[2017-09-15] MEDS ORDERED: DGRI80 SQ (13:06)
[2017-09-15] MEDS ORDERED: FURO-85 PO (13:06)
--- NOTE | 2017-09-15 13:18 | DIAGNOSTIC IMAGING REPORT ---
CHEST ONE VIEW PORTABLE CLINICAL HISTORY: Peripheral edema. COMPARISON STUDY: Chest radiograph May 19, 2017. FINDINGS: There are median sternotomy wires and a dual lead left subclavian pacemaker. There is moderate cardiomegaly. Patient is rotated. No pneumothorax or pleural effusion is noted. There is no consolidation to suggest pneumonia. There is pulmonary vascular congestion without overt pulmonary edema. IMPRESSION: Pulmonary vascular congestion without overt pulmonary edema. Stable cardiomegaly. Electronically signed by: Jasbir Latif M.D. 09/15/2017 1:17 PM Dictated Date/Time: 09/15/2017 1:11 PM
[2017-09-15 13:22] VITALS: BP 142/70; PULSE 60; O2SAT 97
--- NOTE | 2017-09-15 13:47 | EMERGENCY ROOM VISIT NOTE ---
History First contact with patient: 11:49 Chief Complaint: REFERRED BY DOCTOR Stated Complaint: CONGESTIVE HEART FAILURE,KIDNEY FUNCTION History of Present Illness The patient is a 89 year old male who presents to the Emergency Room with complaints of peripheral edema, decreased kidney function and possible congestive heart failure was sent here by his PCP for further evaluation. The patient does have a urinary catheter in place. He does get recurrent UTIs. The patient states he has had some increased swelling in his lower legs. The daughter who has accompanied him states that he has had increased swelling in his legs especially after his injection for his prostate over the past several months. The patient was taking 20 mg of Lasix in the a.m. and 10 mg in the p.m. Due to the peripheral edema noted yesterday they increased his Lasix to 20 mg last night and he took 40 mg this morning. The daughter states that the swelling is decreased from yesterday. The patient denies any redness or any pain in the legs. The patient denies any chest pain or shortness of breath. The patient denies any urinary symptoms although the patient does have a catheter in place. The patient had labs drawn yesterday which they told him that his kidney functions were elevated and therefore he needed to come to the emergency room for evaluation of this of possible CHF and kidney failure. Review of Systems 10 system review was performed and was negative unless stated otherwise history of present illness. Past Medical/Surgical History Medical Problems: (1) Heart disease (2) Kidney disease (3) UTI (urinary tract infection) Surgical Problems: (1) History of cholecystectomy Family History FH: heart disease Social History Smoking Status: Current Every Day Smoker Drug Use: none Marital Status: Housing Status: lives with family Occupation Status: retired Current/Historical Medications Scheduled Aspirin (Aspirin Ec), 81 MG PO DAILY Atenolol (Tenormin), 12.5 MG PO DAILY Atorvastatin (Lipitor), 80 MG PO QPM Cholecalciferol (Vitamin D3), 1,000 INTER.UNIT PO DAILY Degarelix Acetate (Firmagon), 80 MG SQ Q28D Fenofibrate (Tricor ), 145 MG PO DAILY Finasteride (Proscar), 5 MG PO DAILY Fluocinonide (Lidex 0.05% Cream), 1 APPLN TOP UD Furosemide (Lasix), 10 MG PO HS Furosemide (Lasix), 20 MG PO QAM Loratadine (Claritin), 10 MG PO DAILY Prednisone (Prednisone), 40 MG PO DAILY Rivastigmine Tartrate (Exelon), 1.5 MG PO BID Tamsulosin Hcl (Flomax), 2 CAP PO DAILY Physical Exam Vital Signs Date Time Temp Pulse Resp B/P (MAP) Pulse Ox O2 Delivery O2 Flow Rate FiO2 09/15/17 13:22 60 16 142/70 97 Room Air 09/15/17 11:50 60 09/15/17 11:31 36.8 60 20 128/74 98 Room Air Physical Exam GENERAL: 89-year-old white male appears in no acute distress. MENTAL Status: Alert and oriented 3. The patient answers questions appropriately. MOUTH: Mucosa is moist NECK: Supple, no lymphadenopathy noted. No carotid bruits noted. LUNGS: Clear auscultation without wheezes rales or rhonchi. CARDIAC: Regular rate and rhythm without murmur. Pulses is full and equal throughout. BACK: No CVA tenderness noted. ABDOMEN: Positive bowel sounds all 4 quadrants. Soft, nontender to palpation without organomegaly or masses. GENITALIA: Urinary catheter is in place. LOWER EXTREMITIES: Patient has 2+ pitting edema bilaterally without any erythema noted. No cyanosis noted. Medical Decision & Procedures ER Provider Diagnostic Interpretation: CHEST ONE VIEW PORTABLE CLINICAL HISTORY: Peripheral edema. COMPARISON STUDY: Chest radiograph May 19, 2017. FINDINGS: There are median sternotomy wires and a dual lead left subclavian pacemaker. There is moderate cardiomegaly. Patient is rotated. No pneumothorax or pleural effusion is noted. There is no consolidation to suggest pneumonia. There is pulmonary vascular congestion without overt pulmonary edema. IMPRESSION: Pulmonary vascular congestion without overt pulmonary edema. Stable cardiomegaly. Electronically signed by: Jasbir Latif M.D. 09/15/2017 1:17 PM Dictated Date/Time: 09/15/2017 1:11 PM Laboratory Results 09/15/17 11:52 Red Blood Count 3.95, Mean Corpuscular Volume 94.2, Mean Corpuscular Hemoglobin 28.6, Mean Corpuscular Hemoglobin Concent 30.4, Mean Platelet Volume 11.6, Neutrophils (%) (Auto) 65.5, Lymphocytes (%) (Auto) 22.2, Monocytes (%) (Auto) 10.0, Eosinophils (%) (Auto) 1.9, Basophils (%) (Auto) 0.2, Neutrophils # (Auto ) 3.15, Lymphocytes # (Auto) 1.07, Monocytes # (Auto) 0.48, Eosinophils # (Auto ) 0.09, Basophils # (Auto) 0.01 09/15/17 11:52 09/15/17 12:42 Test 09/15/17 11:52 White Blood Count 4.81 K/uL (4.8-10.8) Red Blood Count 3.95 M/uL (4.7-6.1) Hemoglobin 11.3 g/dL (14.0-18.0) Hematocrit 37.2 % (42-52) Mean Corpuscular Volume 94.2 fL (80-100) Mean Corpuscular Hemoglobin 28.6 pg (25-34) Mean Corpuscular Hemoglobin Concent 30.4 g/dl (32-36) Platelet Count 87 K/uL (130-400) Mean Platelet Volume 11.6 fL (7.4-10.4) Neutrophils (%) (Auto) 65.5 % Lymphocytes (%) (Auto) 22.2 % Monocytes (%) (Auto) 10.0 % Eosinophils (%) (Auto) 1.9 % Basophils (%) (Auto) 0.2 % Neutrophils # (Auto) 3.15 K/uL (1.4-6.5) Lymphocytes # (Auto) 1.07 K/uL (1.2-3.4) Monocytes # (Auto) 0.48 K/uL (0.11-0.59) Eosinophils # (Auto) 0.09 K/uL (0-0.5) Basophils # (Auto) 0.01 K/uL (0-0.2) RDW Standard Deviation 54.1 fL (36.4-46.3) RDW Coefficient of Variation 15.7 % (11.5-14.5) Immature Granulocyte % (Auto) 0.2 % Immature Granulocyte # (Auto) 0.01 K/uL (0.00-0.02) Hypersegmented Polys 1+ Large Platelets 1+ Ovalocytes 1+ Anion Gap 6.0 mmol/L (3-11) Est Creatinine Clear Calc Drug Dose 23.6 ml/min Estimated GFR () 37.1 Estimated GFR (Non- 32.0 BUN/Creatinine Ratio 17.7 (10-20) Calcium Level 9.4 mg/dl (8.5-10.1) Medications Administered Medications (Trade) Dose Ordered Sig/Roberto Route Start Time Stop Time Status Last Admin Dose Admin Ciprofloxacin (Cipro Tab) 500 mg NOW STAT PO 09/15/17 12:00 09/15/17 12:03 DC 09/15/17 12:07 500 MG ED Course The patient was evaluated. I reviewed the patient's recent labs and urinalysis. The patient's BUN was 35 and creatinine 1.89 yesterday. On his prior labs of July 14, 2017 his BUN was 36 and his creatinine was 1.62. His kidney functions have been elevated for some time. Also his urinalysis was sent for culture and it is growing out gram-negative bacilli sensitivity is to follow. IV access was obtained. CBC and differential, renal profile was ordered. Labs are reviewed. The patient's BUN was 32 and creatinine was 1.83 which is slightly lower than yesterday and seems to be around his baseline. I did not repeat a urine culture. The patient was given Cipro 500 mg p.o. since IV Cipro is on back order. Portable chest x-ray was ordered interpreted by the radiologist as above with cardiomegaly but unchanged from prior exam. No overt pulmonary edema.. The patient was independently evaluated by Dr. wyman who agrees with treatment plan. The patient and daughter were informed of all findings and discharged home in stable condition. Medical Decision Differential diagnosis include CHF, UTI, acute renal failure. Due to the patient being basically at baseline for his renal functions and having no complaints of chest pain or shortness of breath I felt that this patient could be discharged and follow-up with his PCP. [place] Drug Monitoring Program Search Results: patient reviewed within database Medication Reconcilliation Current Medication List: was personally reviewed by me Blood Pressure Screening Patient's blood pressure: Normal blood pressure Impression Primary Impression: UTI (urinary tract infection) Additional Impression: Peripheral edema Departure Information Dispostion Home / Self-Care Condition GOOD Referrals Elsie Ogden DO (PCP) Forms HOME CARE DOCUMENTATION FORM, IMPORTANT VISIT INFORMATION, WORK / SCHOOL INSTRUCTIONS Patient Instructions ED UTI Cystitis Male, My [facility] [place] Primordial Additional Instructions Take Cipro as prescribed. Continue Lasix as directed by your family physician. Keep legs elevated whenever possible. If symptoms worsen, return to ER otherwise follow-up with your PCP early next week for recheck. Problem Qualifiers Primary Impression: UTI (urinary tract infection) Urinary tract infection type: acute cystitis Hematuria presence: with hematuria Qualified Codes: N30.01 - Acute cystitis with hematuria
[2017-09-15] MEDS ORDERED: CIPR-255 PO (14:20)
--- NOTE | 2017-09-16 01:03 | EMERGENCY ROOM VISIT NOTE ---
ED Visit Note First contact with patient: 11:49 I reviewed the patient's past medical history, medications, and visit nursing notes. I discussed the case with the physician professional nursing assistant, examined the patient, and agree with the findings and plan as documented in the physician assistants note.
== END 2017-09-15 14:23 | disposition home or self-care (01) ==
LOC: C.EDB 11:28 → C.EDD 14:23
DX: N30.01 Acute cystitis with hematuria (principal); R60.9 Edema, unspecified; I51.9 Heart disease, unspecified; N28.9 Disorder of kidney and ureter, unspecified; F17.200 Nicotine dependence, unspecified, uncomplicated; Z82.49 Family history of ischemic heart disease and other diseases of the circulatory system; Z79.82 Long term (current) use of aspirin